=== PATIENT | female | born 1960 | race Caucasian/White ===

== ENCOUNTER 2023-06-29 07:52 | Inpatient (IN) | payer OTHER, SELFPAY ==
--- NOTE | ~2023-06-29 | MR_ITS ---
EXAMINATION: MR LUMBAR SPINE WITHOUT CONTRAST CLINICAL INFORMATION: Low back pain and incontinence. COMPARISON: CT scan of the abdomen and pelvis 03/30/2018. TECHNIQUE: MRI of the lumbar spine was obtained using routine sequences without contrast. FINDINGS: VERTEBRAL BODIES AND PARASPINAL STRUCTURES: There is nonspecific straightening of the lumbar lordosis. Intervertebral disc heights are maintained, but there is multilevel disc desiccation. The vertebral bodies have normal height and contour, and no fractures are demonstrated. There are minimal edematous signal changes in the left L3-L4 facets. Overall, marrow signal is homogenous. There is a small cyst in the anterior right kidney, which does not need further imaging evaluation. On the current study there is now severe left hydronephrosis with marked atrophy of the renal parenchyma which has evolved since the prior study. The proximal left ureter is dilated down to the level of the pelvic inlet. The visualized pelvic structures are unremarkable. CONUS MEDULLARIS AND CAUDA EQUINA: Normal, terminating at the level of T12-L1. The lower thoracic spinal cord appears normal. The cauda equina nerve roots and filum terminale appear normal. 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 SPINAL LEVELS: T12-L1: The facet joints appear normal bilaterally. Disc contour is normal. There is no central stenosis or foraminal narrowing. L1-L2: There is mild bilateral facet arthropathy. Disc contour is normal. There is no central stenosis or foraminal narrowing. L2-L3: There is mild bilateral facet arthropathy. Disc contour is normal. There is no central stenosis or foraminal narrowing. L3-L4: There is moderate bilateral facet arthropathy. There is a central and left-sided disc protrusion which flattens the ventral thecal sac and there is narrowing of the left subarticular recess with likely impingement traversing left L4 nerve root. There is moderate central stenosis. There is a left foraminal disc protrusion extending far laterally with impingement on the exiting and extraforaminal segments of the left L3 nerve root. L4-L5: There is mild to moderate bilateral facet arthropathy with ligamenta flava hypertrophy. There is a posterior disc protrusion which distorts the ventral thecal sac and there is mild narrowing of the bilateral subarticular recesses. There is mild central stenosis. There is a left foraminal disc protrusion impinging on the exiting left L4 nerve root. L5-S1: There is moderate to severe bilateral facet arthropathy with ligamenta flava hypertrophy and facet joint effusions. There is a left-sided disc protrusion/extrusion extending into the left subarticular recess with mild impingement on the traversing left S1 nerve root. The protrusion extends into the left neural foramen with impingement on the exiting left L5 nerve root; the smaller right foraminal disc protrusion is also noted. There is no central stenosis. MR/MR lumbar spine wo con IMPRESSION: 1. At L3-L4 there is facet arthropathy and there is a central and left-sided disc protrusion. There is narrowing of the left subarticular recess with impingement on the traversing left L4 nerve root. There is a left foraminal disc protrusion extending far laterally with impingement on the exiting and extraforaminal segments of the left L3 nerve root. There is moderate central stenosis. 2. At L4-L5 there is facet arthropathy and there is a posterior disc protrusion. There is narrowing of the bilateral subarticular recesses and there is mild central stenosis. There is a left foraminal disc protrusion impinging on the exiting left L4 nerve root. 3. At L5-S1 there is a left-sided disc protrusion/extrusion extending into the left subarticular recess with impingement on the traversing left S1 nerve root. There is also a left foraminal disc protrusion impinging on the exiting left L5 nerve root. There is no central stenosis. 4. On the current study there is now severe left hydronephrosis with marked atrophy of the renal parenchyma. The proximal left ureter is dilated down to the level of the pelvic inlet. This could be further evaluated clinically and with ultrasound, and consider isotope renal scan to assess renal function and level of obstruction.
--- NOTE | ~2023-06-29 | US_ITS ---
EXAMINATION: US RETROPERITONEAL LIMITED (RENAL ONLY) CLINICAL INFORMATION: Left-sided hydronephrosis seen on lumbar spine MRI. COMPARISON: Lumbar spine MRI 06/29/2023, CT abdomen pelvis 02/23/2018 TECHNIQUE: Renal ultrasound was performed FINDINGS: RIGHT KIDNEY: 11.4 x 5.5 x 6.2 cm (SAG x AP x TRV). The kidney is normal in size, contour, and echogenicity. Renal cortical thickness is normal. A benign 1.4 cm Bosniak class I renal cyst is noted which requires no additional imaging or follow up. No solid renal masses are seen. No calculi or focal parenchymal lesions. There is minimal fullness of the collecting system but no gross hydronephrosis. LEFT KIDNEY: 13.9 x 6.0 x 7.3 cm (SAG x AP x TRV). The kidney is normal in size, contour, and echogenicity. There is severe hydronephrosis present. There is dilatation of the ureter present and a possible stone seen measuring 7 mm in size in the distal left ureter. Renal cortical thickness is normal. No calculi or focal parenchymal lesions. US/US renal BI IMPRESSION: Severe left-sided hydronephrosis with possible 7 mm distal left ureteral stone. CT scan would be useful for further evaluation.
--- NOTE | ~2023-06-29 | CT_ITS ---
EXAMINATION: CT ANGIOGRAM HEAD CT ANGIOGRAM NECK CLINICAL INFORMATION: Reason for Exam Bilateral Medullary stroke; COMPARISON: Same day noncontrast MRI of the brain TECHNIQUE: Initial noncontrast animal trainer imaging of the head and neck was performed. Noncontrast head CT was also performed. Test bolus sequences followed by intravenous administration 70 mL of Omnipaque 350. Helical imaging was performed in the axial plane from the aortic arch to the skull vertex. Delayed postcontrast imaging of the head was also performed. The data was processed at the senior nuclear medicine technologist workstation for generation of MIP sequences. Angled MIPs and volume rendered reformatted images were also generated at an offline 3D workstation. Stenoses are assessed in accordance with NASCET criteria unless otherwise indicated. DLP: 2333.06 mGy-cm This CT examination was performed using dose optimization techniques as appropriate, variously including the following: *Automated exposure control. *Adjustment of mA and/or kV according to patient size (this includes techniques or standardized protocols for targeted exams where dose is matched to indication/reason for exam; i.e. extremities or head). *Use of iterative reconstruction technique. FINDINGS: CT Head: There is no evidence of acute intracranial hemorrhage or edematous territorial infarction. There is no abnormal attenuation within the brain parenchyma. The left ventral medullary infarct is visible as a hypodensity (series 17 image 11). No definite CT correlate for known right ventral medullary infarct. Tolbert-white matter differentiation is preserved. The ventricles are normal in size and configuration. No evidence for obstructive hydrocephalus. No abnormal mass effect or midline shift. No extra-axial fluid collections. No pathologic intra-axial enhancement or regional oligemia. No acute soft tissue or osseous abnormalities. The mastoid air cells and paranasal sinuses are clear. CT Neck: The thyroid gland and remaining cervical soft tissues are within normal limits. No significant abnormalities of the cervical spine. CT Upper Chest: The visualized lung apices and upper mediastinum are within normal limits. Neck CTA: Aortic Arch: Normal contour and caliber. Classic 3 vessel branching pattern of the aortic arch. Great Vessel Origins: Not well assessed due to streak artifact. Right Common Carotid Artery: No focal stenosis or occlusion. Cervical Right Internal Carotid Artery: Mild calcific atherosclerotic disease of the carotid bulb and proximal internal carotid artery without flow-limiting stenosis. Left Common Carotid Artery: No focal stenosis or occlusion. Cervical Left Internal Carotid Artery: Mild calcific atherosclerotic disease of the carotid bulb and proximal internal carotid artery without flow-limiting stenosis. Cervical Right Vertebral Artery: No focal stenosis or occlusion. Cervical Left Vertebral Artery: Dominant. No focal stenosis or occlusion. Brain CTA: Intracranial Internal Carotid Arteries: Calcific atherosclerotic disease of the intracranial internal carotid arteries without occlusion or flow-limiting stenosis. Right Anterior Cerebral Artery: Normal A1 segment. Normal opacification of the distal DHRUV segments. Left Anterior Cerebral Artery: Normal A1 segment. Normal opacification of the distal DHRUV segments. Anterior Communicating Artery: Normal. Right Middle Cerebral Artery: Normal M1 segment of the MCA without focal stenosis or occlusion. Normal arborization of the distal segments. Left Middle Cerebral Artery: Normal M1 segment of the MCA without focal stenosis or occlusion. Normal arborization of the distal segments. Right Vertebral Artery: The proximal intradural right vertebral artery is normal. There is irregularity and severe narrowing of the right vertebral artery distal to the right PICA takeoff with distal occlusion. Left Vertebral Artery: Normal V4 segment. Basilar Artery: Normal without focal stenosis or occlusion. Normal appearance of the proximal superior cerebellar arteries. Right Posterior Cerebral Artery: The P1 segment is diminutive. origin of the EDUCATION TRAINER with robust opacification of the posterior communicating artery. Normal opacification of the distal EDUCATION TRAINER segments. Left Posterior Cerebral Artery: Normal P1 segment. Normal opacification of the distal EDUCATION TRAINER segments. Normal opacification of the superior sagittal, straight, transverse, and sigmoid sinuses. CT/CT angio head neck IMPRESSION: 1. No acute intracranial abnormality including hemorrhage, mass effect, hydrocephalus, or acute territorial edematous infarction. 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 2. 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
--- NOTE | ~2023-06-29 | MR_ITS ---
EXAMINATION: MR BRAIN WITHOUT AND WITH CONTRAST CLINICAL INFORMATION: Lower extremity weakness COMPARISON: CT head without contrast 06/29/2023 TECHNIQUE: Multiplanar multisequence MR imaging of the brain was obtained without and following the administration of 10 mL Gadavist intravenous contrast. FINDINGS: There are acute infarcts involving the ventral upper right and mid left medulla. There is no intracranial hemorrhage on iron-sensitive imaging. No extra-axial collection or mass effect/herniation. Scattered periventricular and deep white matter T2 FLAIR hyperintensities consistent with mild underlying microangiopathy. No hydrocephalus. The ventricles are normal in morphology and size. No abnormal parenchymal or extra-axial enhancement. Abnormal appearance of the distal intradural right vertebral artery which may reflect a high-grade stenosis or occlusion. The midline structures are normal. The cerebellar tonsils are normally positioned. The craniocervical junction is normal. Marrow signal is within normal limits. The visualized soft tissues are without significant abnormality. No signal abnormality within the paranasal sinuses or within the mastoid air cells. MR/MR head/brain wo/w con IMPRESSION: 1. Acute infarcts involving the ventral upper right and mid left medulla. 2. Abnormal appearance of the distal intradural right vertebral artery which may reflect a high-grade stenosis or occlusion. This could be better assessed with CTA of the head and neck Above impression was communicated to Dr. Montaño on 07/01/2023 1:24 PM
--- NOTE | ~2023-06-29 | MR_ITS ---
EXAMINATION: MR CERVICAL SPINE WITHOUT AND WITH CONTRAST CLINICAL INFORMATION: Lower extremity weakness COMPARISON: None available. TECHNIQUE: MRI of the cervical spine was obtained using routine sequences without and with contrast. A total of 10 mL Gadavist was administered intravenously. FINDINGS: Suboptimal evaluation secondary to motion degradation. Straightening of the normal cervical lordosis. Trace anterolisthesis of C2-C3. Cervical vertebral body heights are maintained. No expansile or destructive osseous lesion. Within the constraint of motion degradation, no definite cord signal abnormality or abnormal intramedullary enhancement. C2-C3: No significant spinal canal or neural foraminal stenosis. C3-C4: Uncovertebral spurring and facet arthropathy. The spinal canal and neural foramen are not significantly narrowed. C4-C5: Mild facet degeneration. The spinal canal and neural foramen are patent. C5-C6: Disc osteophyte complex indents the ventral thecal sac with mild canal stenosis. Uncovertebral and facet arthropathy with mild right and moderate to severe left neural foraminal stenosis. C6-C7: Disc osteophyte complex with mild spinal canal stenosis. Uncovertebral and facet arthropathy with moderate to severe left neural foraminal stenosis. The right neural foramen is patent. C7-T1: No significant spinal canal or neural foraminal stenosis. Partially visualized T2 hyperintense foci in the brainstem which may be related to chronic microvascular ischemic change. MR/MR cervical spine wo/w con IMPRESSION: Within the constraint of motion degradation, no definite cord signal abnormality or abnormal intramedullary enhancement. No high-grade spinal canal stenosis. Moderate to severe left-sided neural foraminal stenosis at C5-C6 and C6-C7.
--- NOTE | ~2023-06-29 | CT_ITS ---
EXAMINATION: CT HEAD WITHOUT CONTRAST CLINICAL INFORMATION: Weakness and fall. COMPARISON: None available. TECHNIQUE: Contiguous axial imaging was performed from the skull base to vertex without intravenous administration of contrast. This CT examination was performed using dose optimization techniques as appropriate, variously including the following: *Automated exposure control *Adjustment of mA and/or kV according to patient size (this includes techniques or standardized protocols for targeted exams where dose is matched to indication/reason for exam; i.e. extremities or head) *Use of iterative reconstruction technique DLP: 614 mGy-cm FINDINGS: There is no evidence of acute intracranial hemorrhage or territorial infarction. No mass effect or midline shift is seen. Tolbert to white matter differentiation is preserved. No extra-axial fluid collections are identified. No hydrocephalus. The calvarium is intact. The mastoid air cells and visualized portions of the paranasal sinuses are well aerated. CT/CT head/brain wo IV con IMPRESSION: No acute intracranial pathology.
--- NOTE | ~2023-06-29 | CT_ITS ---
EXAMINATION: CT ABDOMEN AND PELVIS WITHOUT CONTRAST CLINICAL INFORMATION: Left-sided hydronephrosis. COMPARISON: CT abdomen and pelvis 03/30/2018. TECHNIQUE: Multidetector volumetric imaging was performed from the superior aspect of the liver through the pubic symphysis. Sagittal and coronal reformatted images were obtained on the technologist's workstation. This CT examination was performed using dose optimization techniques as appropriate, variously including the following: *Automated exposure control *Adjustment of mA and/or kV according to patient size (this includes techniques or standardized protocols for targeted exams where dose is matched to indication/reason for exam; i.e. extremities or head) *Use of iterative reconstruction technique DLP: 700. mGy-cm FINDINGS: LUNG BASES: The visualized lung bases are unremarkable. LIVER, GALLBLADDER, AND BILIARY TREE: The liver is normal in size, shape, and attenuation. No focal hepatic lesion or biliary ductal dilatation is present. There is a small 5 mm radiopaque gallstone without wall thickening. PANCREAS: Unremarkable. SPLEEN: Unremarkable. ADRENAL GLANDS: Unremarkable. KIDNEYS AND URETERS: The right kidney is normal size, shape and position. No radiopaque calculi or hydronephrosis seen. There is chronic left hydroureter nephrosis with hydroureteronephrosis extending to the mid segment likely from stricture. No radiopaque calculi seen in the left ureter The distal ureter is not dilated. BLADDER: The bladder is nondilated GASTROINTESTINAL TRACT: There is scattered stool and gas seen throughout the colon without distention. The small bowel loops are normal caliber. The appendix is dilated from Enlarged from trapped fluid measuring 19 Hounsfield units. This appendix measures approximately 12 to 13 cm in length, 2.6 x 2.8 cm at the base. Question trapped fluid versus mucocele. No radiopaque appendicolith seen at the base. It is a new finding since the last exam 03/30/2018. ABDOMINAL WALL: No significant hernia is appreciated. LYMPH NODES: Small shotty lymph nodes in the mesentery. No retroperitoneal abnormal size lymph nodes. VASCULAR: Unremarkable. PELVIC VISCERA: The uterus is atrophic or surgically absent. No adnexal mass or free fluid. OSSEOUS STRUCTURES: No aggressive lytic or sclerotic process. CT/CT abdomen pelvis wo IV con IMPRESSION: 1. Chronic left hydroureteronephrosis with dilated ureter extending to the mid segment likely from stricture. No radiopaque calculi seen. 2. The right kidney is normal. 3. Cholelithiasis without wall thickening. 4. There is fluid distended and elongated appendix question loculated fluid versus mucocele. Correlate with ultrasound and surgical consultation. Fleischner guidelines were followed.
[2023-06-29 08:03] VITALS: BP 186/111; BP 211/111; PULSE 70; PULSE 81; RESP 19; TEMP 37; O2SAT 95; O2SAT 96; BMI 36.8
--- NOTE | 2023-06-29 08:20 | ECG_ITS ---
Test Reason : weakness Blood Pressure : / mmHG Vent. Rate : 069 BPM Atrial Rate : 069 BPM P-R Int : 162 ms QRS Dur : 072 ms QT Int : 404 ms P-R-T Axes : 033 005 069 degrees QTc Int : 432 ms Normal sinus rhythm Normal ECG When compared with ECG of 23-FEB-2018 09:09, No significant change was found Referred By: Beka Pierce Electronically Signed By:Dmitry Crooks
--- NOTE | 2023-06-29 08:38 | ED_ITS ---
HPI - General Adult General Chief complaint: Weakness Stated complaint: WEAK,NEW ONSET INCONT PER EMS Time Seen by Provider: 06/29/23 08:09 Source: patient and family Mode of arrival: ambulatory Limitations: no limitations History of Present Illness HPI narrative: This is a 62-year-old female history of obesity, hyperlipidemia presenting to the emergency department with concerns that she has not been feeling right since Monday. Patient reports she feels like her legs are very heavy and weak, she is having issues with ambulation and supporting herself, she reports that the weakness seems to be going up her body and now she feels like her arms are also weak. Since Monday night patient has been having urinary incontinence patient has no history of this in the past. She reports she is having normal bowel habits without incontinence. She tells me she is having slight back discomfort but it may be secondary to her doing some heavy lifting at home as she is currently moving and lifting more often than usual. She denies saddle paresthesias, blunt trauma, fevers, chills, nausea, vomiting, headache, vision changes, chest pain and shortness of breath. No recent surgical procedures, immunizations or viral illnesses. Related Data Allergies Allergy/AdvReac Type Severity Reaction Status Date / Time Penicillins [PCN] Allergy Intermediate RASH Verified 06/29/23 10:46 feathers [FEATHERS] Allergy Mild CONGESTION Verified 06/29/23 10:46 acetaminophen [From PERCOCET] Allergy Unknown VOMITING Verified 06/29/23 10:46 amoxicillin Allergy Unknown Rash Verified 06/29/23 10:46 cephalexin [Keflex] Allergy Unknown Rash Verified 06/29/23 10:46 oxycodone [From PERCOCET] Allergy Unknown VOMITING Verified 06/29/23 10:46 penicillin G Allergy Unknown Rash Verified 06/29/23 10:46 PMF Social History Social History Smoked in Last 30 Days: No Use of substances other than those prescribed or required for medical reasons: No Advance Directives: No Advance Directives Information Provided: Yes Patient : No Physical Exam ED Vital Signs: Vital Signs - 24 hr 06/29/23 08:03 06/29/23 10:13 06/29/23 12:05 Temperature 98.6 F Pulse Rate 70 65 71 Respiratory Rate 19 18 16 Blood Pressure 186/111 H 179/94 H 175/88 H Pulse Oximetry 95 94 95 Oxygen Delivery Method Room Air Room Air Room Air 06/29/23 14:22 Temperature Pulse Rate 82 Respiratory Rate 16 Blood Pressure 159/103 H Pulse Oximetry 94 Oxygen Delivery Method Room Air BMI result Body Mass Index 36.8 vss Appearance: Alert.? Oriented X3.? No acute distress.? Head: Normocephalic, atraumatic, no step-offs or deformities Eyes: Pupils equal, round and reactive to light.? Neck: Normal inspection.? Neck supple.? CVS: Normal heart rate and rhythm.? Pulses normal.? Respiratory: No respiratory distress.? Breath sounds normal.? Abdomen: Soft and nontender.? Skin: Skin warm and dry.? Normal skin color.? Normal skin turgor.? Extremities: No lower extremity edema.? No calf ttp. patient unable to lift either of her lower extremities due to weakness not pain. Normal sensation distally. 3/5 strength to bilateral upper extremities. Normal LE reflexes. Back: No midline tenderness, no C-spine tenderness, full range of motion, no CVA tenderness bilaterally Neuro: Oriented X 3.? No motor deficit.? No sensory deficit. CN 2-12 intact Course Reevaluation(s) Reevaluation #1: CBC unremarkable. Chemistry no acute findings requiring intervention. Troponin negative. ESR and CRP normal. Head CT no acute intracranial pathology. Time: 10:15 Reevaluation #2: Lumbar MRI pending. Time: 10:15 Reevaluation #3: No significant signs of cord compression on MRI of lumbar spine. Patient was seen by Dr. Swain recommends 1 g of Solu-Medrol for the next 3 days. Also recommends MRI of cervical region. Would like patient admitted to the hospital. Time: 16:00 Additional Reevaluation(s): LP done no complications patient is lying supine for at least [address] Connolly assited and at the bedside. CSF samples sent down to the lab for analysis. Plan is hospital admission I assisted with the performance of the lumbar puncture. Medications Administered Discontinued Medications Generic Name Dose Route Start Last Admin Trade Name Freq PRN Reason Stop Dose Admin Ketorolac Tromethamine 30 mg 06/29/23 10:41 06/29/23 10:46 Ketorolac Tromethamine 30 Mg/Ml Vial IVPUSH 06/29/23 10:42 30 mg ONCE ONE Administration Lorazepam 1 mg 06/29/23 11:59 06/29/23 12:08 Lorazepam 2 Mg/Ml Vial IVPUSH 06/29/23 12:00 1 mg STAT STA Administration Medical Decision Making Medical Decision Making [facility] Narrative: 62-year-old female presents with ascending weakness and urinary incontinence that started on Monday. Very mild back pain. Physical exam patient unable to lift either of her lower extremities due to weakness not pain. Normal sensation distally. 3/5 strength to bilateral upper extremities. Normal LE reflexes. History and physical exam concerning for possible Guillain-[place] versus demyelinating process versus urinary tract infection versus lower cord compression. Unlikely cauda equina, epidural abscess. Will rule out metabolic derangements. Plan labs, urine, bladder scan, Frances catheter, CT head. Differential Diagnosis Differential Diagnoses: The differential diagnosis associated with the presentation includes History and physical exam concerning for possible Guillain-[place] versus demyelinating process versus urinary tract infection versus lower cord compression. Unlikely cauda equina, epidural abscess. Will rule out metabolic derangements. Admission/Observation Consideration of admission/observation: Escalation of care including admission/observation considered Likely Consult Healthcare Provider Management of the patient was discussed with: Agricultural Technician (Neurology) Lab Data [facility] Lab Attestation statement: I reviewed the patient's lab results. 06/29/23 08:49 06/29/23 08:49 Labs: Lab Results 06/29/23 Range/Units 08:49 WBC 7.9 (4.8-10.8) X10*3/uL RBC 5.57 H (4.20-5.50) X10*6/uL Hgb 15.0 (12.0-16.0) g/dl Hct 44.0 (37.0-47.0) % MCV 79.0 L (80.0-98.0) fL MCH 26.9 L (27.0-33.0) pg MCHC 34.1 (31.0-35.0) g/dl RDW 12.7 (11.0-16.0) % Plt Count 258 (160-400) X10*3/uL MPV 10.2 (9.4-12.3) fL Immature Gran % (Auto) 0.6 H (0.0-0.4) % Neut % (Auto) 66.1 (45-73) % Lymph % (Auto) 26.5 (20-40) % [place] % (Auto) 5.2 (2-11) % Eos % (Auto) 0.8 (0-4) % Baso % (Auto) 0.8 (0-2) % Lymph # (Auto) 2.1 (1.2-4.9) X10*3/uL [place] # (Auto) 0.4 (0.1-1.2) X10*3/uL Eos # (Auto) 0.1 (0.0-0.4) X10*3/uL Baso # (Auto) 0.1 (0.0-0.2) X10*3/uL Abs Immat Gran (auto) 0.05 H (0.00-0.03) X10*3/uL Absolute Neuts (auto) 5.2 (2.0-8.3) x10*3/uL Absolute Nucleated RBC 0.000 (0.0-0.012) X10*3/uL Nucleated RBC % (auto) 0.0 (0.0-0.2) /100WBC ESR 5 (0-20) MM/HR PT 11.9 (11.1-13.3) SEC INR 1.0 (0.9-1.1) Sodium 140 (135-145) mmol/L Potassium 3.7 (3.3-5.1) mmol/L Chloride 109 H (96-108) mmol/L Carbon Dioxide 21 L (22-29) mmol/L Anion Gap 14 (12-20) BUN 11 (9-16) mg/dL Creatinine 1.09 (0.5-1.4) mg/dL Estim Creat Clear Calc 57.6 Estimated GFR 51 Random Glucose 199 H (60-115) mg/dL Calcium 9.7 (8.4-10.2) mg/dL Magnesium 2.1 (1.6-2.6) mg/dL Total Bilirubin 0.7 (0.0-1.0) mg/dL AST 19 (5-31) U/L ALT 22 (0-31) U/L Alkaline Phosphatase 112 (39-117) U/L Troponin I High Sens < 2.7 (<3.5-17.0) ng/L C-Reactive Protein 0.40 (< or = 0.50) mg/dL Total Protein 7.4 (6.5-8.0) g/dL Albumin 4.4 (3.5-5.0) g/dL Independent Interpretation I performed an independent interpretation of an: CT Scan (CT/CT head/brain wo IV con IMPRESSION: No acute intracranial pathology.) Interpretation: Lumbar spine MRI MR/MR lumbar spine wo con IMPRESSION: 1. At L3-L4 there is facet arthropathy and there is a central and left-sided disc protrusion. There is narrowing of the left subarticular recess with impingement on the traversing left L4 nerve root. There is a left foraminal disc protrusion extending far laterally with impingement on the exiting and extraforaminal segments of the left L3 nerve root. There is moderate central stenosis. 2. At L4-L5 there is facet arthropathy and there is a posterior disc protrusion. There is narrowing of the bilateral subarticular recesses and there is mild central stenosis. There is a left foraminal disc protrusion impinging on the exiting left L4 nerve root. 3. At L5-S1 there is a left-sided disc protrusion/extrusion extending into the left subarticular recess with impingement on the traversing left S1 nerve root. There is also a left foraminal disc protrusion impinging on the exiting left L5 nerve root. There is no central stenosis. 4. On the current study there is now severe left hydronephrosis with marked atrophy of the renal parenchyma. The proximal left ureter is dilated down to the level of the pelvic inlet. This could be further evaluated clinically and with ultrasound, and consider isotope renal scan to assess renal function and level of obstruction. Radiology Impression Discussion of test interpretation with radiology: I have reviewed the radiologist's reading. Independent Historian Clinical information obtained from an independent historian. History obtained from or confirmed by: Other (Daughter) Chronic Conditions Patient?s care impacted by: Other (Obesity, hyperlipidemia) Critical Care Time Critical Care Time Critical Care Time: Yes Total Critical Care Time: 120 Attestation: I attest to this time spent taking care of the patient, obtaining history, physical, reviewing labs, imaging, speaking to my attending, speaking to specialist. Discharge Plan Discharge Clinical Impression: Myelopathy, Leg weakness Patient Disposition: Admitted As Inpatient
[2023-06-29 08:55] LABS: MANUAL DIFF FLAG NO
[2023-06-29 09:06] LABS: Basophils Absolute Auto 0.1 X10*3/uL (0.0-0.2); Basophils Percent Auto 0.8 % (0-2); Eosinophils Absolute Auto 0.1 X10*3/uL (0.0-0.4); Eosinophils Percent Auto 0.8 % (0-4); Imm Gran Abs Auto 0.05 X10*3/uL (0.00-0.03); Imm Gran Pct Auto 0.6 % (0.0-0.4); Lymphocytes Absolute Auto 2.1 X10*3/uL (1.2-4.9); Lymphocytes Percent Auto 26.5 % (20-40); Mean Corpuscular HGB Conc 34.1 g/dl (31.0-35.0); Mean Corpuscular Hemoglobin 26.9 pg (27.0-33.0); Mean Platelet Volume 10.2 fL (9.4-12.3); Monocytes Absolute Auto 0.4 X10*3/uL (0.1-1.2); Monocytes Percent Auto 5.2 % (2-11); Neutrophils Absolute Auto 5.2 x10*3/uL (2.0-8.3); Neutrophils Percent Auto 66.1 % (45-73); Platelet Count 258 X10*3/uL (160-400); Red Blood Count 5.57 X10*6/uL (4.20-5.50); Red Cell Distribution Width 12.7 % (11.0-16.0); White Blood Count 7.9 X10*3/uL (4.8-10.8)
[2023-06-29 09:10] LABS: Prothrombin Time 11.9 SEC (11.1-13.3)
--- NOTE | 2023-06-29 09:13 | PC.NURSE ---
MRI screening form completed. pt aware of need for U/a - family at bedside. all aware of plan of care
[2023-06-29 09:20] LABS: Alanine Aminotransferase 22 U/L (0-31); Albumin Level 4.4 g/dL (3.5-5.0); Alkaline Phosphatase 112 U/L (39-117); Anion Gap 14 (12-20); Aspartate Amino Transferase 19 U/L (5-31); Bilirubin Total 0.7 mg/dL (0.0-1.0); Blood Urea Nitrogen 11 mg/dL (9-16); Calcium 9.7 mg/dL (8.4-10.2); Carbon Dioxide 21 mmol/L (22-29); Chloride 109 mmol/L (96-108); Creatinine Clr Calc Pharmacy 57.6; Estimated Glomerular Filt Rate 51; Glucose Random 199 mg/dL (60-115); Magnesium 2.1 mg/dL (1.6-2.6); Potassium 3.7 mmol/L (3.3-5.1); Sodium 140 mmol/L (135-145); Total Protein 7.4 g/dL (6.5-8.0)
[2023-06-29 09:34] LABS: Troponin-I High Sensitivity < 2.7 ng/L (<3.5-17.0)
[2023-06-29 09:54] LABS: Erythrocyte Sedimentation Rate 5 MM/HR (0-20)
[2023-06-29 10:13] VITALS: BP 179/94; PULSE 65; RESP 18; O2SAT 94
[2023-06-29] MEDS: Ketorolac Tromethamine 30 MG/ML VIAL IVPUSH (10:46)
[2023-06-29 12:05] VITALS: BP 175/88; PULSE 71; RESP 16; O2SAT 95
[2023-06-29] MEDS: LORazepam 2 MG/ML VIAL 1 MG IVPUSH (12:08)
--- NOTE | 2023-06-29 12:21 | PC.NURSE ---
pt off unit to MRI
--- NOTE | 2023-06-29 13:17 | PC.NURSE ---
pt back from MRI, resting comfortable with lights off at this time, pt with no complaints
[2023-06-29 14:22] VITALS: BP 159/103; PULSE 82; RESP 16; O2SAT 94
--- NOTE | 2023-06-29 15:11 | P.CNNE_ITS ---
History of Present Illness Data of Consult Service Date: 06/29/23 Primary Care Provider: None Physician HPI Reason for consult: leg weakness This is a 62-year-old obese female generally healthy womanwith history of hyperlipidemiaOn no medications presented to the emergency department with not feeling right for last 48 hrs. She feels like her legs are very heavy and weak, and she is having issues with ambulation and supporting herself. She reports that the weakness seems to be going up her body and now she feels like her arms are also weak. She has also been having urinary incontinence that is new. She reports she is having normal bowel habits without incontinence. She is having slight back discomfort but it may be secondary to her doing some heavy lifting at home as she is currently moving and lifting more often than usual. She denies saddle paresthesias, blunt trauma, fevers, chills, nausea, vomiting, headache, vision changes. No recent immunizations or viral illnesses. PMFSH Social History Social History Smoked in Last 30 Days: No Use of substances other than those prescribed or required for medical reasons: No Advance Directives: No Advance Directives Information Provided: Yes Patient : No Meds Allergies Allergy/AdvReac Type Severity Reaction Status Date / Time Penicillins [PCN] Allergy Intermediate RASH Verified 06/29/23 10:46 feathers [FEATHERS] Allergy Mild CONGESTION Verified 06/29/23 10:46 acetaminophen [From PERCOCET] Allergy Unknown VOMITING Verified 06/29/23 10:46 amoxicillin Allergy Unknown Rash Verified 06/29/23 10:46 cephalexin [Keflex] Allergy Unknown Rash Verified 06/29/23 10:46 oxycodone [From PERCOCET] Allergy Unknown VOMITING Verified 06/29/23 10:46 penicillin G Allergy Unknown Rash Verified 06/29/23 10:46 Physical Exam 2 Vital Signs: Vital Signs: Last Vital Signs Temp 98.6 F 06/29/23 08:03 Pulse 82 06/29/23 14:22 Resp 16 06/29/23 14:22 BP 159/103 H 06/29/23 14:22 Pulse Ox 94 06/29/23 14:22 O2 Del Method Room Air 06/29/23 14:22 BMI result Body Mass Index 36.8 Neuro: Other: She's alert and oriented with normal intellectual functions. Cranial nerves II through: Normal. There may be a hint of eye closure weakness on the right. Tongue protrudes in the midline. She has minimal weakness of neck flexion. She has mild weakness in the upper extremities. In the triceps and deltoids at 5 minus/5. Slight weakness in the right cook helper dessert. Lower extremity proximal strength is 3/5 distal strength is 4+/5. Reflexes are 2-3+3+ knees, 2+ ankles and plantar responses are equivocal extensor. There are no sensory deficits. Gait was not tested. Results Labs 06/29/23 08:49 06/29/23 08:49 Labs: Short CBC 06/29/23 Range/Units 08:49 WBC 7.9 (4.8-10.8) X10*3/uL Hgb 15.0 (12.0-16.0) g/dl Hct 44.0 (37.0-47.0) % Plt Count 258 (160-400) X10*3/uL BMP 06/29/23 08:49 Sodium 140 Potassium 3.7 Chloride 109 H Carbon Dioxide 21 L BUN 11 Creatinine 1.09 Calcium 9.7 Liver Function 06/29/23 Range/Units 08:49 Total Bilirubin 0.7 (0.0-1.0) mg/dL AST 19 (5-31) U/L ALT 22 (0-31) U/L Alkaline Phosphatase 112 (39-117) U/L Albumin 4.4 (3.5-5.0) g/dL Assessment and Plan (1) Myelopathy: Status: Acute She has slowly progressive weakness over the last 48 hours with loss of bladder control hyperreflexia and equivocal extensor plantar responses, suggesting of a form of myelitis or myelopathy. The other possibility would be a more peripheral etiology leg Guillain-[place]? syndrome. However, in the presence of for brisk reflexes and upgoing plantar responses and no sensory complaints of pain or numbness that seems less likely. Her MRI of the lumbosacral spine is unremarkable. Brain CT is negative. I have reviewed the films personally. Recommendations: MRI of the cervical spine. Spinal fluid analysis, including MS studies. IV Solu-Medrol 1 g daily for 3 days (2) Leg weakness: Status: Acute Procedures Date of Service Date of Service: 06/29/23
--- NOTE | 2023-06-29 16:56 | PHA.MEDREC ---
Pharmacy Consult ? Medication Reconciliation Pharmacy has completed the medication reconciliation. Patient reports only a OTC medications. Jillian Antunez, RandeeD
[2023-06-29] MEDS: Ibuprofen 600 MG TABLET PO (17:18)
[2023-06-29] MEDS: methylPREDNISolone Sod Succ 1,000 MG in 0.9 % Sodium Chloride 50 ML 66 MG IV (17:18)
[2023-06-29 17:23] LABS: CSF Appearance Clear, Colorless; CSF Tube # 2
[2023-06-29 17:33] LABS: Appearance CSF CLEAR; CSF Tube # 1; CSF Volume 0.5 ML; Color CSF COLORLESS
[2023-06-29 17:34] LABS: Appearance CSF CLEAR; CSF Tube # 4; CSF Volume 0.5 ML; Color CSF COLORLESS; Red Blood Cell CSF 0 MM*3; Red Blood Cell CSF 105 MM*3
[2023-06-29 17:55] LABS: CSF Monos 9 %; Lymphocytes CSF 91 %
[2023-06-29 17:57] LABS: CSF Monos 10 %; Lymphocytes CSF 90 %
--- NOTE | 2023-06-29 17:57 | PM.IMHP ---
History of Present Illness Date of Service: 06/29/23 Chief Complaint: Lower extremities weakness A 62 years old lady with no significant PMH who presents to the hospital complaining of lower extremities weakness for last 2 days. The patient reports some heavy lefting recently which she was able to manage but for the last 2 days she noticed worsening weakness in her legs, difficulties standing up and walking, feels unsteady. she also felt her arms are getting weaker. she lost control of her bladder but have normal bowel habit. reporting also mild headache today. No chest pain, palpitations, loss sensation, vision changes, SOB, nausea, vomiting, diarrhea or urinary symptoms. In ED she was evaluated by MR spine and CSF analysis along with neurologist evaluation who recommended starting pulse steroids for 3 days. Admitted for treatment and further work up. Review of Systems Review of Systems: No fever, chills but has lower extremities weakness No chest pain, palpitation No shortness of breath or coughing No abdominal pain, nausea or vomiting No urinary symptoms No any rash or wounds PMFSH Medical History Obesity (BMI 30-39.9) Social History Smoked in Last 30 Days: No Use of substances other than those prescribed or required for medical reasons: No Advance Directives: No Advance Directives Information Provided: Yes Patient : No Meds Allergies Allergy/AdvReac Type Severity Reaction Status Date / Time Penicillins [PCN] Allergy Intermediate RASH Verified 06/29/23 10:46 feathers [FEATHERS] Allergy Mild CONGESTION Verified 06/29/23 10:46 acetaminophen [From PERCOCET] Allergy Unknown VOMITING Verified 06/29/23 10:46 amoxicillin Allergy Unknown Rash Verified 06/29/23 10:46 cephalexin [Keflex] Allergy Unknown Rash Verified 06/29/23 10:46 oxycodone [From PERCOCET] Allergy Unknown VOMITING Verified 06/29/23 10:46 penicillin G Allergy Unknown Rash Verified 06/29/23 10:46 Active Medications: Current Medications Enoxaparin Sodium (Enoxaparin Sodium 40 Mg/0.4 Ml Syringe) 40 mg SUBCUT Q24H MARIELLE Methylprednisolone Sodium Succinate 1,000 mg/ Sodium Chloride 66 mls @ 66 mls/hr IV ONCE ONE Stop: 06/29/23 18:14 Last Admin: 06/29/23 17:18 Dose: 66 mls/hr Methylprednisolone Sodium Succinate 1,000 mg/ Sodium Chloride 66 mls @ 66 mls/hr IV DAILY [facility] Stop: 07/01/23 09:59 Ibuprofen (Ibuprofen 400 Mg Tablet) 400 mg PO Q6H PRN PRN Reason: Fever or Pain, Mild (Pain Scale 1-3) Ondansetron HCl (Ondansetron Hcl 4 Mg/2 Ml Vial) 4 mg IVPUSH Q8H PRN PRN Reason: Nausea and Vomiting Sodium Chloride (0.9 % Sodium Chloride Flush 3 Ml Syringe) 3 ml IVFLUSH QSHIFT [facility] Home Medications Medication Instructions Recorded Confirmed Last Taken Type glucosam 750 mg-chondroi 100 1 tab PO DAILY 06/29/23 06/29/23 Unknown History mg-hyalur 1.65 mg-CF borate 108 mg tablet (Move Free IAT-Auto) Physical Exam Vital Signs and Narrative: Vital Signs: Last Vital Signs Temp 98.6 F 06/29/23 08:03 Pulse 82 06/29/23 14:22 Resp 16 06/29/23 14:22 BP 159/103 H 06/29/23 14:22 Pulse Ox 94 06/29/23 14:22 O2 Del Method Room Air 06/29/23 14:22 BMI result Body Mass Index 36.8 Const: Other: Constitutional : Awake, interactive, not in distress Neck : Normal inspection, Supple Cardiovascular : RRR, no JVP, no lower extremity edema Respiratory : good bilateral air entry, no crackles, wheezes or rhonchi Gastrointestinal: soft, lax, Normal bowel sounds, Non tender Skin : Warm, Dry Neurological : Alert & oriented x3, normal speech, CN 2-12 within normal, mild weakness upper extremities, Lower ex weakness 3/5 bilaterally. Brisk DTR Results Labs 06/29/23 08:49 06/29/23 08:49 Labs: Laboratory Results - last 24 hr 06/29/23 06/29/23 06/29/23 08:49 16:31 16:31 MCV 79.0 L MCH 26.9 L MCHC 34.1 RDW 12.7 Plt Count 258 MPV 10.2 Immature Gran % (Auto) 0.6 H Neut % (Auto) 66.1 Lymph % (Auto) 26.5 [place] % (Auto) 5.2 Eos % (Auto) 0.8 Baso % (Auto) 0.8 Lymph # (Auto) 2.1 [place] # (Auto) 0.4 Eos # (Auto) 0.1 Baso # (Auto) 0.1 Abs Immat Gran (auto) 0.05 H Absolute Neuts (auto) 5.2 Absolute Nucleated RBC 0.000 Nucleated RBC % (auto) 0.0 ESR 5 PT 11.9 INR 1.0 Anion Gap 14 Estim Creat Clear Calc 57.6 Estimated GFR 51 Random Glucose 199 H Calcium 9.7 Magnesium 2.1 Total Bilirubin 0.7 AST 19 ALT 22 Alkaline Phosphatase 112 Troponin I High Sens < 2.7 C-Reactive Protein 0.40 Total Protein 7.4 Albumin 4.4 Hold Yellow Top See Note CSF Tube Number 2 Cancelled CSF Volume Cancelled CSF Appearance Cancelled CSF Color Cancelled CSF WBC Cancelled CSF RBC Cancelled CSF Neutrophils Cancelled CSF Lymphocytes Cancelled CSF Monocytes % Cancelled CSF Other Cells % Cancelled CSF Appearance (b) Clear, Colorless CSF Total Protein 79.0 H Imaging Radiologist's Impressions: Impressions Head CT 06/29/23 09:23 IMPRESSION: No acute intracranial pathology. Lumbar Spine MRI 06/29/23 12:54 IMPRESSION: 1. At L3-L4 there is facet arthropathy and there is a central and left-sided disc protrusion. There is narrowing of the left subarticular recess with impingement on the traversing left L4 nerve root. There is a left foraminal disc protrusion extending far laterally with impingement on the exiting and extraforaminal segments of the left L3 nerve root. There is moderate central stenosis. 2. At L4-L5 there is facet arthropathy and there is a posterior disc protrusion. There is narrowing of the bilateral subarticular recesses and there is mild central stenosis. There is a left foraminal disc protrusion impinging on the exiting left L4 nerve root. 3. At L5-S1 there is a left-sided disc protrusion/extrusion extending into the left subarticular recess with impingement on the traversing left S1 nerve root. There is also a left foraminal disc protrusion impinging on the exiting left L5 nerve root. There is no central stenosis. 4. On the current study there is now severe left hydronephrosis with marked atrophy of the renal parenchyma. The proximal left ureter is dilated down to the level of the pelvic inlet. This could be further evaluated clinically and with ultrasound, and consider isotope renal scan to assess renal function and level of obstruction. Assessment and Plan (1) Leg weakness: Status: Acute (2) Myelopathy: Status: Acute (3) Hydronephrosis: Status: Acute Plan A 62 years old lady with no significant PMH who presents to the hospital complaining of lower extremities weakness for last 2 days. Lower extremities weakness DDx: MS ? atypical GBS ? spinal cord problem? MR Lumbar spine: no acute findings but multiple arthropathy and disc problems Head CT no acute findings Pending MRI Cervical spine CSF Analysis and culture Neurology input appreciated, 3 days of 1 gm Solumedrol PT\OT Neurochecks Q4 Left sided hydronephrosis noted on MRI to check US get urology evaluation DVT PPx Lovenox The patient will need at least 2 overnight hospital stay Quality Stroke Does the patient have a stroke diagnosis?: No VTE Prior VTE?: No VTE Risk Level:: Medical - moderate - high VTE Device Contraindication: Treatment Not Indicated VTE Drug Contraindication: N/A - Med Ordered
[2023-06-29 18:00] LABS: White Blood Cell CSF 16 MM*3; White Blood Cell CSF 27 MM*3
[2023-06-29] MEDS: Enoxaparin Sodium 40 MG/0.4 ML SYRINGE SUBCUT (18:24)
[2023-06-29 19:42] LABS: Oligoclonal Serum Yes
[2023-06-29 22:45] VITALS: BP 171/101; PULSE 74; RESP 16; TEMP 36.4; O2SAT 92
[2023-06-30] MEDS: 0.9 % Sodium Chloride Flush 3 ML SYRINGE IVFLUSH ×3 (00:25→19:19)
[2023-06-30] MEDS: Ibuprofen 400 MG TABLET PO ×2 (02:11→10:22)
[2023-06-30 05:49] LABS: MANUAL DIFF FLAG NO
[2023-06-30 05:54] LABS: Basophils Percent Auto 0.1 % (0-2); Hematocrit 45.4 % (37.0-47.0); Hemoglobin 15.5 g/dl (12.0-16.0); Imm Gran Abs Auto 0.06 X10*3/uL (0.00-0.03); Imm Gran Pct Auto 0.7 % (0.0-0.4); Lymphocytes Absolute Auto 1.3 X10*3/uL (1.2-4.9); Lymphocytes Percent Auto 14.1 % (20-40); Mean Corpuscular HGB Conc 34.1 g/dl (31.0-35.0); Mean Corpuscular Hemoglobin 26.8 pg (27.0-33.0); Mean Corpuscular Volume 78.5 fL (80.0-98.0); Mean Platelet Volume 10.1 fL (9.4-12.3); Monocytes Percent Auto 0.3 % (2-11); Neutrophils Absolute Auto 7.8 x10*3/uL (2.0-8.3); Neutrophils Percent Auto 84.8 % (45-73); Platelet Count 246 X10*3/uL (160-400); Red Blood Count 5.78 X10*6/uL (4.20-5.50); Red Cell Distribution Width 12.6 % (11.0-16.0); White Blood Count 9.2 X10*3/uL (4.8-10.8)
--- NOTE | 2023-06-30 06:13 | PC.NURSE ---
PT slept well through the night only woke for medication for a headache. Offering no complaints this morning. Resting quietly. Call lew placed within reach.
[2023-06-30 06:22] LABS: Anion Gap 19 (12-20); Blood Urea Nitrogen 19 mg/dL (9-16); Calcium 9.9 mg/dL (8.4-10.2); Carbon Dioxide 19 mmol/L (22-29); Chloride 105 mmol/L (96-108); Creatinine Clr Calc Pharmacy 55.6; Estimated Glomerular Filt Rate 49; Glucose Random 323 mg/dL (60-115); Potassium 3.7 mmol/L (3.3-5.1); Sodium 139 mmol/L (135-145)
[2023-06-30 06:28] VITALS: BP 159/86; PULSE 86; RESP 16; TEMP 36.9; O2SAT 92
[2023-06-30 06:34] LABS: Appearance Urine Clear; Color Urine Yellow; Glucose Urine UA >=1000 mg/dL (Negative); Leukocyte Esterase Urine Negative (Negative); Nitrite Urine Negative (Negative); PH 5.5 (5.0-9.0); Specific Gravity - Urine >= 1.030 (1.005-1.025); UMIC TRIGGER UACC YES; Urine Blood Negative (Negative); Urine Ketones 40 mg/dL (Negative); Urine Protein Negative (Neg-Trace)
[2023-06-30 06:39] LABS: Bacteria Urine 1+ (None Seen); Hyaline Casts Urine 0-2 /LPF (0-2); RBC Urine 0-2 /HPF (0-2); Squamous Epithelial Cell Urine 0-2 /HPF (0-2); WBC Urine 0-5 /HPF (0-5)
[2023-06-30 07:57] VITALS: BP 159/86; PULSE 86; O2SAT 92
[2023-06-30] MEDS: methylPREDNISolone Sod Succ 1,000 MG in 0.9 % Sodium Chloride 50 ML 66 MG IV (08:25)
--- NOTE | 2023-06-30 08:30 | PM.UROCN ---
History of Present Illness Consult details Consult date: 06/30/23 Requesting physician: Akin Montaño Narrative: Geovanna is a 62 year old female presents to the hospital complaining of lower extremities weakness for last 2 days. The patient reports some heavy lefting recently which she was able to manage but for the last 2 days she noticed worsening weakness in her legs, difficulties standing up and walking, feels unsteady. she also felt her arms are getting weaker. She complains of complete urinary incontinence, denies dysuria. She states she has been followed by [facility] in the past for kidney stones, denies renal colic. No chest pain, palpitations, loss sensation, vision changes, SOB, nausea, vomiting, diarrhea. In ED she was evaluated by MR spine and CSF analysis along with neurologist evaluation. Admitted for treatment and further work up. Urology consult for left hydronephrosis and possible distal ureteral stone noted on renal ultrasound. Review of Systems Review of Systems: 10 point ROS negative other than stated in [facility] Past Medical History Medical History Obesity (BMI 30-39.9) Social History Social History Patient Tobacco Use Status: Never used Tobacco Smoked in Last 30 Days: No Use of substances other than those prescribed or required for medical reasons: No Advance Directives: No Advance Directives Information Provided: Yes Nutrition Risks: No Nutritional Risk Patient : No Meds Allergies Allergy/AdvReac Type Severity Reaction Status Date / Time Penicillins [PCN] Allergy Intermediate RASH Verified 06/29/23 10:46 feathers [FEATHERS] Allergy Mild CONGESTION Verified 06/29/23 10:46 acetaminophen [From PERCOCET] Allergy Unknown VOMITING Verified 06/29/23 10:46 amoxicillin Allergy Unknown Rash Verified 06/29/23 10:46 cephalexin [Keflex] Allergy Unknown Rash Verified 06/29/23 10:46 oxycodone [From PERCOCET] Allergy Unknown VOMITING Verified 06/29/23 10:46 penicillin G Allergy Unknown Rash Verified 06/29/23 10:46 Active Medications: Current Medications Enoxaparin Sodium (Enoxaparin Sodium 40 Mg/0.4 Ml Syringe) 40 mg SUBCUT Q24H [facility] Last Admin: 06/29/23 18:24 Dose: 40 mg Methylprednisolone Sodium Succinate 1,000 mg/ Sodium Chloride 66 mls @ 66 mls/hr IV DAILY ON LICENSE OF [facility] Stop: 07/01/23 09:59 Last Admin: 06/30/23 08:25 Dose: 66 mls/hr Ibuprofen (Ibuprofen 400 Mg Tablet) 400 mg PO Q6H PRN PRN Reason: Fever or Pain, Mild (Pain Scale 1-3) Last Admin: 06/30/23 02:11 Dose: 400 mg Ondansetron HCl (Ondansetron Hcl 4 Mg/2 Ml Vial) 4 mg IVPUSH Q8H PRN PRN Reason: Nausea and Vomiting Sodium Chloride (0.9 % Sodium Chloride Flush 3 Ml Syringe) 3 ml IVFLUSH QSHIFT ON LICENSE OF [facility] Last Admin: 06/30/23 08:21 Dose: Not Given Home Medications Medication Instructions Recorded Confirmed Last Taken Type glucosam 750 mg-chondroi 100 1 tab PO DAILY 06/29/23 06/29/23 Unknown History mg-hyalur 1.65 mg-CF borate 108 mg tablet (Move [place]) Physical Exam Vital Signs: Vital Signs: Last Vital Signs Temp 98.5 F 06/30/23 06:28 Pulse 86 06/30/23 07:57 Resp 16 06/30/23 06:28 BP 159/86 H 06/30/23 07:57 Pulse Ox 92 06/30/23 07:57 O2 Del Method Room Air 06/30/23 06:28 BMI result Body Mass Index 36.8 Const: General: cooperative, healthy appearing and no acute distress Orientation/consciousness: patient oriented x3 HEENT: Head: Yes normal to inspection, Yes normocephalic and Yes atraumatic Eyes: Conjunctivae: conjunctivae normal Neck: Neck: Yes normal visual inspection and Yes trachea midline Chest: Chest palpation & inspection: normal inspection of the chest Resp: Effort & Inspection: normal respiratory effort Cardio: Rate: regular rate GI: Inspection: Yes normal to inspection Palpation (GI): Soft to palpation : General: No no CVA tenderness Back/Spine/Pelvis: Back: No no CVA tenderness Neuro: General: patient oriented x3 Extrem: General: No edema Psych: Appearance: grossly normal Results Labs 06/30/23 05:02 06/30/23 05:02 Labs: Abnormal lab results 06/29/23 06/29/23 06/29/23 Range/Units 08:49 16:31 16:31 RBC 5.57 H (4.20-5.50) X10*6/uL MCV 79.0 L (80.0-98.0) fL MCH 26.9 L (27.0-33.0) pg Immature Gran % (Auto) 0.6 H (0.0-0.4) % Neut % (Auto) (45-73) % Lymph % (Auto) (20-40) % Phillips % (Auto) (2-11) % Phillips # (Auto) (0.1-1.2) X10*3/uL Abs Immat Gran (auto) 0.05 H (0.00-0.03) X10*3/uL Chloride 109 H (96-108) mmol/L Carbon Dioxide 21 L (22-29) mmol/L BUN (9-16) mg/dL Random Glucose 199 H (60-115) mg/dL Ur Specific [place] (1.005-1.025) Urine Glucose (UA) (Negative) mg/dL CSF WBC 27 H* 16 H* MM*3 CSF Total Protein 79.0 H (15-45) mg/dL 06/30/23 06/30/23 Range/Units 05:02 06:04 RBC 5.78 H (4.20-5.50) X10*6/uL MCV 78.5 L (80.0-98.0) fL MCH 26.8 L (27.0-33.0) pg Immature Gran % (Auto) 0.7 H (0.0-0.4) % Neut % (Auto) 84.8 H (45-73) % Lymph % (Auto) 14.1 L (20-40) % Phillips % (Auto) 0.3 L (2-11) % Phillips # (Auto) 0.0 L (0.1-1.2) X10*3/uL Abs Immat Gran (auto) 0.06 H (0.00-0.03) X10*3/uL Chloride (96-108) mmol/L Carbon Dioxide 19 L (22-29) mmol/L BUN 19 H (9-16) mg/dL Random Glucose 323 H (60-115) mg/dL Ur Specific [place] >= 1.030 H (1.005-1.025) Urine Glucose (UA) >=1000 H (Negative) mg/dL CSF WBC MM*3 CSF Total Protein (15-45) mg/dL Short CBC 06/29/23 06/30/23 Range/Units 08:49 05:02 WBC 7.9 9.2 (4.8-10.8) X10*3/uL Hgb 15.0 15.5 (12.0-16.0) g/dl Hct 44.0 45.4 (37.0-47.0) % Plt Count 258 246 (160-400) X10*3/uL BMP 06/29/23 06/30/23 08:49 05:02 Sodium 140 139 Potassium 3.7 3.7 Chloride 109 H 105 Carbon Dioxide 21 L 19 L BUN 11 19 H Creatinine 1.09 1.13 Calcium 9.7 9.9 Liver Function 06/29/23 Range/Units 08:49 Total Bilirubin 0.7 (0.0-1.0) mg/dL AST 19 (5-31) U/L ALT 22 (0-31) U/L Alkaline Phosphatase 112 (39-117) U/L Albumin 4.4 (3.5-5.0) g/dL Urine 06/30/23 Range/Units 06:04 Urine Color Yellow Urine Appearance Clear Urine pH 5.5 (5.0-9.0) Ur Specific [place] >= 1.030 H (1.005-1.025) Urine Protein Negative (Neg-Trace) mg/dL Urine Glucose (UA) >=1000 H (Negative) mg/dL Imaging US - kidney/bladder: report reviewed and image reviewed Additional studies: Date of Service: 06/29/23 EXAMINATION: US RETROPERITONEAL LIMITED (RENAL ONLY) CLINICAL INFORMATION: Left-sided hydronephrosis seen on lumbar spine MRI. COMPARISON: Lumbar spine MRI 06/29/2023, CT abdomen pelvis 02/23/2018 TECHNIQUE: Renal ultrasound was performed FINDINGS: RIGHT KIDNEY: 11.4 x 5.5 x 6.2 cm (SAG x AP x TRV). The kidney is normal in size, contour, and echogenicity. Renal cortical thickness is normal. A benign 1.4 cm Bosniak class I renal cyst is noted which requires no additional imaging or follow up. No solid renal masses are seen. No calculi or focal parenchymal lesions. There is minimal fullness of the collecting system but no gross hydronephrosis. LEFT KIDNEY: 13.9 x 6.0 x 7.3 cm (SAG x AP x TRV). The kidney is normal in size, contour, and echogenicity. There is severe hydronephrosis present. There is dilatation of the ureter present and a possible stone seen measuring 7 mm in size in the distal left ureter. Renal cortical thickness is normal. No calculi or focal parenchymal lesions. IMPRESSION: Severe left-sided hydronephrosis with possible 7 mm distal left ureteral stone. CT scan would be useful for further evaluation. Assessment and Plan (1) Leg weakness: Status: Acute (2) Myelopathy: Status: Acute (3) Hydronephrosis: Status: Acute (4) Urinary incontinence: Status: Acute Plan Left hydro, Clinically denies flank pain. Recommend CT Abd/pelvis wo IV contrast Urinary incontinence, likely related to neurological sequelae No surgical intervention at this time, will follow Procedures Date of Service Date of Service: 06/30/23
[2023-06-30 10:08] VITALS: BP 170/102; PULSE 98; RESP 20; TEMP 36.6; O2SAT 94
--- NOTE | 2023-06-30 10:32 | P.PNIM_ITS ---
Subjective Subjective Date of Service: 06/30/23 Interval History: Seen and evaluated this morning feels weaker overall, mainly in upper extremities today her sound is more muffled Anxious and worried Review of Systems Review of Systems: Yes all other systems are reviewed and are negative Physical Exam 2 Vital Signs: Vital Signs: Last Vital Signs Temp 98 F 06/30/23 10:08 Pulse 98 06/30/23 10:08 Resp 20 06/30/23 10:08 BP 170/102 H 06/30/23 10:08 Pulse Ox 94 06/30/23 10:08 O2 Del Method Room Air 06/30/23 10:08 BMI result Body Mass Index 36.8 Const: Other: Constitutional : Awake, interactive, not in distress Neck : Normal inspection, Supple Cardiovascular : RRR, no JVP, no lower extremity edema Respiratory : good bilateral air entry, no crackles, wheezes or rhonchi Gastrointestinal: soft, lax, Normal bowel sounds, Non tender Skin : Warm, Dry Neurological : Alert & oriented x3, normal speech, CN 2-12 within normal, mild weakness upper extremities, Lower ex weakness 3/5 bilaterally. Brisk DTR Objective Data Active Medications Enoxaparin Sodium (Enoxaparin Sodium 40 Mg/0.4 Ml Syringe) 40 mg SUBCUT Q24H [facility] Last Admin: 06/29/23 18:24 Dose: 40 mg Documented By: FROY Methylprednisolone Sodium Succinate 1,000 mg/ Sodium Chloride 66 mls @ 66 mls/hr IV DAILY [facility] Stop: 07/01/23 09:59 Last Infusion: 06/30/23 09:51 Dose: Infused Documented By: JIM Ibuprofen (Ibuprofen 400 Mg Tablet) 400 mg PO Q6H PRN PRN Reason: Fever or Pain, Mild (Pain Scale 1-3) Last Admin: 06/30/23 10:22 Dose: 400 mg Documented By: JIM Ondansetron HCl (Ondansetron Hcl 4 Mg/2 Ml Vial) 4 mg IVPUSH Q8H PRN PRN Reason: Nausea and Vomiting Sodium Chloride (0.9 % Sodium Chloride Flush 3 Ml Syringe) 3 ml IVFLUSH QSHIFT [facility] Last Admin: 06/30/23 08:21 Dose: Not Given Documented By: RONI Non-Admin Reason: IV Running Labs 06/30/23 05:02 06/30/23 05:02 Labs: Laboratory Results - last 24 hr 06/29/23 06/29/23 06/29/23 16:31 16:31 16:31 MCV MCH MCHC RDW Plt Count MPV Immature Gran % (Auto) Neut % (Auto) Lymph % (Auto) [place] % (Auto) Eos % (Auto) Baso % (Auto) Lymph # (Auto) [place] # (Auto) Eos # (Auto) Baso # (Auto) Abs Immat Gran (auto) Absolute Neuts (auto) Absolute Nucleated RBC Nucleated RBC % (auto) Anion Gap Estim Creat Clear Calc Estimated GFR Random Glucose Calcium Hold Yellow Top See Note Urine Color Urine Appearance Urine pH Ur Specific [place] Urine Protein Urine Glucose (UA) Urine Ketones Urine Blood Urine Nitrite Ur Leukocyte Esterase Urine RBC Urine WBC Ur Squamous Epith Cells Urine Bacteria Hyaline Casts CSF Tube Number 2 Cancelled 1 CSF Volume CSF Appearance CSF Color CSF WBC CSF RBC CSF Neutrophils CSF Lymphocytes CSF Monocytes % CSF Other Cells % CSF Appearance (b) CSF Total Protein 06/29/23 06/29/23 06/29/23 16:31 16:31 16:31 MCV MCH MCHC RDW Plt Count MPV Immature Gran % (Auto) Neut % (Auto) Lymph % (Auto) [place] % (Auto) Eos % (Auto) Baso % (Auto) Lymph # (Auto) [place] # (Auto) Eos # (Auto) Baso # (Auto) Abs Immat Gran (auto) Absolute Neuts (auto) Absolute Nucleated RBC Nucleated RBC % (auto) Anion Gap Estim Creat Clear Calc Estimated GFR Random Glucose Calcium Hold Yellow Top Urine Color Urine Appearance Urine pH Ur Specific [place] Urine Protein Urine Glucose (UA) Urine Ketones Urine Blood Urine Nitrite Ur Leukocyte Esterase Urine RBC Urine WBC Ur Squamous Epith Cells Urine Bacteria Hyaline Casts CSF Tube Number 4 CSF Volume Cancelled 0.5 0.5 CSF Appearance Cancelled CSF Color CSF WBC CSF RBC CSF Neutrophils CSF Lymphocytes CSF Monocytes % CSF Other Cells % CSF Appearance (b) CSF Total Protein 06/29/23 06/29/23 06/29/23 16:31 16:31 16:31 MCV MCH MCHC RDW Plt Count MPV Immature Gran % (Auto) Neut % (Auto) Lymph % (Auto) [place] % (Auto) Eos % (Auto) Baso % (Auto) Lymph # (Auto) [place] # (Auto) Eos # (Auto) Baso # (Auto) Abs Immat Gran (auto) Absolute Neuts (auto) Absolute Nucleated RBC Nucleated RBC % (auto) Anion Gap Estim Creat Clear Calc Estimated GFR Random Glucose Calcium Hold Yellow Top Urine Color Urine Appearance Urine pH Ur Specific [place] Urine Protein Urine Glucose (UA) Urine Ketones Urine Blood Urine Nitrite Ur Leukocyte Esterase Urine RBC Urine WBC Ur Squamous Epith Cells Urine Bacteria Hyaline Casts CSF Tube Number CSF Volume CSF Appearance CLEAR CLEAR CSF Color Cancelled COLORLESS CSF WBC CSF RBC CSF Neutrophils CSF Lymphocytes CSF Monocytes % CSF Other Cells % CSF Appearance (b) CSF Total Protein 06/29/23 06/29/23 06/29/23 16:31 16:31 16:31 MCV MCH MCHC RDW Plt Count MPV Immature Gran % (Auto) Neut % (Auto) Lymph % (Auto) [place] % (Auto) Eos % (Auto) Baso % (Auto) Lymph # (Auto) [place] # (Auto) Eos # (Auto) Baso # (Auto) Abs Immat Gran (auto) Absolute Neuts (auto) Absolute Nucleated RBC Nucleated RBC % (auto) Anion Gap Estim Creat Clear Calc Estimated GFR Random Glucose Calcium Hold Yellow Top Urine Color Urine Appearance Urine pH Ur Specific [place] Urine Protein Urine Glucose (UA) Urine Ketones Urine Blood Urine Nitrite Ur Leukocyte Esterase Urine RBC Urine WBC Ur Squamous Epith Cells Urine Bacteria Hyaline Casts CSF Tube Number CSF Volume CSF Appearance CSF Color COLORLESS CSF WBC Cancelled 27 H* 16 H* CSF RBC Cancelled CSF Neutrophils CSF Lymphocytes CSF Monocytes % CSF Other Cells % CSF Appearance (b) CSF Total Protein 06/29/23 06/29/23 06/29/23 16:31 16:31 16:31 MCV MCH MCHC RDW Plt Count MPV Immature Gran % (Auto) Neut % (Auto) Lymph % (Auto) [place] % (Auto) Eos % (Auto) Baso % (Auto) Lymph # (Auto) [place] # (Auto) Eos # (Auto) Baso # (Auto) Abs Immat Gran (auto) Absolute Neuts (auto) Absolute Nucleated RBC Nucleated RBC % (auto) Anion Gap Estim Creat Clear Calc Estimated GFR Random Glucose Calcium Hold Yellow Top Urine Color Urine Appearance Urine pH Ur Specific [place] Urine Protein Urine Glucose (UA) Urine Ketones Urine Blood Urine Nitrite Ur Leukocyte Esterase Urine RBC Urine WBC Ur Squamous Epith Cells Urine Bacteria Hyaline Casts CSF Tube Number CSF Volume CSF Appearance CSF Color CSF WBC CSF RBC 105 0 CSF Neutrophils Cancelled CSF Lymphocytes Cancelled 90 CSF Monocytes % CSF Other Cells % CSF Appearance (b) CSF Total Protein 06/29/23 06/29/23 06/29/23 16:31 16:31 16:31 MCV MCH MCHC RDW Plt Count MPV Immature Gran % (Auto) Neut % (Auto) Lymph % (Auto) [place] % (Auto) Eos % (Auto) Baso % (Auto) Lymph # (Auto) [place] # (Auto) Eos # (Auto) Baso # (Auto) Abs Immat Gran (auto) Absolute Neuts (auto) Absolute Nucleated RBC Nucleated RBC % (auto) Anion Gap Estim Creat Clear Calc Estimated GFR Random Glucose Calcium Hold Yellow Top Urine Color Urine Appearance Urine pH Ur Specific [place] Urine Protein Urine Glucose (UA) Urine Ketones Urine Blood Urine Nitrite Ur Leukocyte Esterase Urine RBC Urine WBC Ur Squamous Epith Cells Urine Bacteria Hyaline Casts CSF Tube Number CSF Volume CSF Appearance CSF Color CSF WBC CSF RBC CSF Neutrophils CSF Lymphocytes 91 CSF Monocytes % Cancelled 10 9 CSF Other Cells % Cancelled CSF Appearance (b) Clear, Colorless CSF Total Protein 79.0 H 06/30/23 06/30/23 05:02 06:04 MCV 78.5 L MCH 26.8 L MCHC 34.1 RDW 12.6 Plt Count 246 MPV 10.1 Immature Gran % (Auto) 0.7 H Neut % (Auto) 84.8 H Lymph % (Auto) 14.1 L [place] % (Auto) 0.3 L Eos % (Auto) 0.0 Baso % (Auto) 0.1 Lymph # (Auto) 1.3 [place] # (Auto) 0.0 L Eos # (Auto) 0.0 Baso # (Auto) 0.0 Abs Immat Gran (auto) 0.06 H Absolute Neuts (auto) 7.8 Absolute Nucleated RBC 0.000 Nucleated RBC % (auto) 0.0 Anion Gap 19 Estim Creat Clear Calc 55.6 Estimated GFR 49 Random Glucose 323 H Calcium 9.9 Hold Yellow Top Urine Color Yellow Urine Appearance Clear Urine pH 5.5 Ur Specific [place] >= 1.030 H Urine Protein Negative Urine Glucose (UA) >=1000 H Urine Ketones 40 Urine Blood Negative Urine Nitrite Negative Ur Leukocyte Esterase Negative Urine RBC 0-2 Urine WBC 0-5 Ur Squamous Epith Cells 0-2 Urine Bacteria 1+ Hyaline Casts 0-2 CSF Tube Number CSF Volume CSF Appearance CSF Color CSF WBC CSF RBC CSF Neutrophils CSF Lymphocytes CSF Monocytes % CSF Other Cells % CSF Appearance (b) CSF Total Protein Microbiology Microbiology Results: Microbiology 06/29/23 16:31 Gram Stain - Final Cerebrospinal Fluid CSF Examination - Final Fluid Description - Final CSF Culture - Preliminary No growth to date. Assessment and Plan (1) Urinary incontinence: Status: Acute (2) Hydronephrosis: Status: Acute (3) Leg weakness: Status: Acute Plan A 62 years old lady with no significant PMH who presents to the hospital complaining of lower extremities weakness for last 2 days. Upper and lower extremities weakness DDx: MS ? atypical GBS ? spinal cord problem? MR Lumbar spine: no acute findings but multiple arthropathy and disc problems Head CT no acute findings Pending MRI Brain and Cervical spine CSF Analysis and culture Neurology following 2/3 days of 1 gm Solumedrol PT\OT Neurochecks Q4 Left sided hydronephrosis noted on MRI US showing normal size kidney with severe hydronephrosis and possible distal stone urology evaluation, non surgical at this point, get CT DVT PPx Lovenox The patient will need overnight hospital stay to finish pulse steroid therapy pending further images, clinical improvement and specialists opinion Quality Stroke Does the patient have a stroke diagnosis?: No VTE Prior VTE?: No VTE Risk Level:: Medical - moderate - high VTE Device Contraindication: Treatment Not Indicated VTE Drug Contraindication: N/A - Med Ordered
[2023-06-30 10:34] VITALS: BMI 36.7
--- NOTE | 2023-06-30 11:30 | MHC.CM.PN ---
Addendum entered by Renata Graves RN 06/30/23 11:40: Patient is aware she is not eligible for home services, as she does not have a PCP. 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 She is independent at baseline, now with weakness to BLE's. Does not have a PCP. Brochure provided. Patient completed HCP naming agents 1) sister Radha and 2) daughter Yue DP: PT rec acute rehab. CM reviewed recommendation w/ patient. 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 Family is assisting with father's care at this time. Will consider rehab if still needed [place]. All [place]'s in the area are following. CM will continue to follow.
[2023-06-30 15:18] VITALS: BP 170/102; PULSE 95; RESP 20; O2SAT 94
--- NOTE | 2023-06-30 15:28 | P.PNNE_ITS ---
Subjective Subjective Date of Service: 06/30/23 Interval History: She feels weaker overall, mainly in upper extremities today . She finds it hard to move in bed. She's also had a persistent left frontal headache Critical Care Time (minutes): 0 Physical Exam 2 Vital Signs: Vital Signs: Last Vital Signs Temp 98 F 06/30/23 10:08 Pulse 95 06/30/23 15:18 Resp 20 06/30/23 15:18 BP 170/102 H 06/30/23 15:18 Pulse Ox 94 06/30/23 15:18 O2 Del Method Room Air 06/30/23 15:18 BMI result Body Mass Index 36.7 Const: Other: Constitutional : Awake, interactive, not in distress Neck : Normal inspection, Supple Cardiovascular : RRR, no JVP, no lower extremity edema Respiratory : good bilateral air entry, no crackles, wheezes or rhonchi Gastrointestinal: soft, lax, Normal bowel sounds, Non tender Skin : Warm, Dry Neurological : Alert & oriented x3, normal speech, CN 2-12 within normal, mild weakness upper extremities, Lower ex weakness 3/5 bilaterally. Brisk DTR General: cooperative, healthy appearing and no acute distress O rientation/consciousness: patient oriented x3 HEENT: Head: Yes normal to inspection, Yes normocephalic and Yes atraumatic Eyes: Conjunctivae: conjunctivae normal Neck: Neck: Yes normal visual inspection and Yes trachea midline Chest: Chest palpation & inspection: normal inspection of the chest Resp: Effort & Inspection: normal respiratory effort Cardio: Rate: regular rate GI: Inspection: Yes normal to inspection Palpation (GI): Soft to palpation : General: No no CVA tenderness Back/Spine/Pelvis: Back: No no CVA tenderness Neuro: Other: She's alert and oriented with normal intellectual functions. Cranial nerves II through: Normal. There may be a hint of eye closure weakness on the right. Tongue protrudes in the midline. She has minimal weakness of neck flexion. She has Moderate weakness in the upper extremities. In the triceps and deltoids at 4+/5. weakness in the right roll tube setter>left. Lower extremity proximal strength is 3/5 distal strength is 4/5. Reflexes are 2-3+3+ knees, 2+ ankles and plantar responses are equivocal extensor Bilaterally. There are no sensory deficits. Gait was not tested. General: patient oriented x3 Extrem: General: No edema Psych: Appearance: grossly normal Objective Data Labs 06/30/23 05:02 06/30/23 05:02 Labs: Laboratory Results - last 24 hr 06/29/23 06/29/23 06/29/23 16:31 16:31 16:31 WBC RBC Hgb Hct MCV MCH MCHC RDW Plt Count MPV Immature Gran % (Auto) Neut % (Auto) Lymph % (Auto) Haakon % (Auto) Eos % (Auto) Baso % (Auto) Lymph # (Auto) Haakon # (Auto) Eos # (Auto) Baso # (Auto) Abs Immat Gran (auto) Absolute Neuts (auto) Absolute Nucleated RBC Nucleated RBC % (auto) Sodium Potassium Chloride Carbon Dioxide Anion Gap BUN Creatinine Estim Creat Clear Calc Estimated GFR Random Glucose Calcium Hold Yellow Top See Note Urine Color Urine Appearance Urine pH Ur Specific [place] Urine Protein Urine Glucose (UA) Urine Ketones Urine Blood Urine Nitrite Ur Leukocyte Esterase Urine RBC Urine WBC Ur Squamous Epith Cells Urine Bacteria Hyaline Casts CSF Tube Number 2 Cancelled 1 CSF Volume CSF Appearance CSF Color CSF WBC CSF RBC CSF Neutrophils CSF Lymphocytes CSF Monocytes % CSF Other Cells % CSF Appearance (b) CSF Total Protein 06/29/23 06/29/23 06/29/23 16:31 16:31 16:31 WBC RBC Hgb Hct MCV MCH MCHC RDW Plt Count MPV Immature Gran % (Auto) Neut % (Auto) Lymph % (Auto) Haakon % (Auto) Eos % (Auto) Baso % (Auto) Lymph # (Auto) Haakon # (Auto) Eos # (Auto) Baso # (Auto) Abs Immat Gran (auto) Absolute Neuts (auto) Absolute Nucleated RBC Nucleated RBC % (auto) Sodium Potassium Chloride Carbon Dioxide Anion Gap BUN Creatinine Estim Creat Clear Calc Estimated GFR Random Glucose Calcium Hold Yellow Top Urine Color Urine Appearance Urine pH Ur Specific [place] Urine Protein Urine Glucose (UA) Urine Ketones Urine Blood Urine Nitrite Ur Leukocyte Esterase Urine RBC Urine WBC Ur Squamous Epith Cells Urine Bacteria Hyaline Casts CSF Tube Number 4 CSF Volume Cancelled 0.5 0.5 CSF Appearance Cancelled CSF Color CSF WBC CSF RBC CSF Neutrophils CSF Lymphocytes CSF Monocytes % CSF Other Cells % CSF Appearance (b) CSF Total Protein 06/29/23 06/29/23 06/29/23 16:31 16:31 16:31 WBC RBC Hgb Hct MCV MCH MCHC RDW Plt Count MPV Immature Gran % (Auto) Neut % (Auto) Lymph % (Auto) Haakon % (Auto) Eos % (Auto) Baso % (Auto) Lymph # (Auto) Haakon # (Auto) Eos # (Auto) Baso # (Auto) Abs Immat Gran (auto) Absolute Neuts (auto) Absolute Nucleated RBC Nucleated RBC % (auto) Sodium Potassium Chloride Carbon Dioxide Anion Gap BUN Creatinine Estim Creat Clear Calc Estimated GFR Random Glucose Calcium Hold Yellow Top Urine Color Urine Appearance Urine pH Ur Specific [place] Urine Protein Urine Glucose (UA) Urine Ketones Urine Blood Urine Nitrite Ur Leukocyte Esterase Urine RBC Urine WBC Ur Squamous Epith Cells Urine Bacteria Hyaline Casts CSF Tube Number CSF Volume CSF Appearance CLEAR CLEAR CSF Color Cancelled COLORLESS CSF WBC CSF RBC CSF Neutrophils CSF Lymphocytes CSF Monocytes % CSF Other Cells % CSF Appearance (b) CSF Total Protein 06/29/23 06/29/23 06/29/23 16:31 16:31 16:31 WBC RBC Hgb Hct MCV MCH MCHC RDW Plt Count MPV Immature Gran % (Auto) Neut % (Auto) Lymph % (Auto) Haakon % (Auto) Eos % (Auto) Baso % (Auto) Lymph # (Auto) Haakon # (Auto) Eos # (Auto) Baso # (Auto) Abs Immat Gran (auto) Absolute Neuts (auto) Absolute Nucleated RBC Nucleated RBC % (auto) Sodium Potassium Chloride Carbon Dioxide Anion Gap BUN Creatinine Estim Creat Clear Calc Estimated GFR Random Glucose Calcium Hold Yellow Top Urine Color Urine Appearance Urine pH Ur Specific [place] Urine Protein Urine Glucose (UA) Urine Ketones Urine Blood Urine Nitrite Ur Leukocyte Esterase Urine RBC Urine WBC Ur Squamous Epith Cells Urine Bacteria Hyaline Casts CSF Tube Number CSF Volume CSF Appearance CSF Color COLORLESS CSF WBC Cancelled 27 H* 16 H* CSF RBC Cancelled CSF Neutrophils CSF Lymphocytes CSF Monocytes % CSF Other Cells % CSF Appearance (b) CSF Total Protein 06/29/23 06/29/23 06/29/23 16:31 16:31 16:31 WBC RBC Hgb Hct MCV MCH MCHC RDW Plt Count MPV Immature Gran % (Auto) Neut % (Auto) Lymph % (Auto) Haakon % (Auto) Eos % (Auto) Baso % (Auto) Lymph # (Auto) Haakon # (Auto) Eos # (Auto) Baso # (Auto) Abs Immat Gran (auto) Absolute Neuts (auto) Absolute Nucleated RBC Nucleated RBC % (auto) Sodium Potassium Chloride Carbon Dioxide Anion Gap BUN Creatinine Estim Creat Clear Calc Estimated GFR Random Glucose Calcium Hold Yellow Top Urine Color Urine Appearance Urine pH Ur Specific [place] Urine Protein Urine Glucose (UA) Urine Ketones Urine Blood Urine Nitrite Ur Leukocyte Esterase Urine RBC Urine WBC Ur Squamous Epith Cells Urine Bacteria Hyaline Casts CSF Tube Number CSF Volume CSF Appearance CSF Color CSF WBC CSF RBC 105 0 CSF Neutrophils Cancelled CSF Lymphocytes Cancelled 90 CSF Monocytes % CSF Other Cells % CSF Appearance (b) CSF Total Protein 06/29/23 06/29/23 06/29/23 16:31 16:31 16:31 WBC RBC Hgb Hct MCV MCH MCHC RDW Plt Count MPV Immature Gran % (Auto) Neut % (Auto) Lymph % (Auto) Haakon % (Auto) Eos % (Auto) Baso % (Auto) Lymph # (Auto) Haakon # (Auto) Eos # (Auto) Baso # (Auto) Abs Immat Gran (auto) Absolute Neuts (auto) Absolute Nucleated RBC Nucleated RBC % (auto) Sodium Potassium Chloride Carbon Dioxide Anion Gap BUN Creatinine Estim Creat Clear Calc Estimated GFR Random Glucose Calcium Hold Yellow Top Urine Color Urine Appearance Urine pH Ur Specific [place] Urine Protein Urine Glucose (UA) Urine Ketones Urine Blood Urine Nitrite Ur Leukocyte Esterase Urine RBC Urine WBC Ur Squamous Epith Cells Urine Bacteria Hyaline Casts CSF Tube Number CSF Volume CSF Appearance CSF Color CSF WBC CSF RBC CSF Neutrophils CSF Lymphocytes 91 CSF Monocytes % Cancelled 10 9 CSF Other Cells % Cancelled CSF Appearance (b) Clear, Colorless CSF Total Protein 79.0 H 06/30/23 06/30/23 05:02 06:04 WBC 9.2 RBC 5.78 H Hgb 15.5 Hct 45.4 MCV 78.5 L MCH 26.8 L MCHC 34.1 RDW 12.6 Plt Count 246 MPV 10.1 Immature Gran % (Auto) 0.7 H Neut % (Auto) 84.8 H Lymph % (Auto) 14.1 L Haakon % (Auto) 0.3 L Eos % (Auto) 0.0 Baso % (Auto) 0.1 Lymph # (Auto) 1.3 Haakon # (Auto) 0.0 L Eos # (Auto) 0.0 Baso # (Auto) 0.0 Abs Immat Gran (auto) 0.06 H Absolute Neuts (auto) 7.8 Absolute Nucleated RBC 0.000 Nucleated RBC % (auto) 0.0 Sodium 139 Potassium 3.7 Chloride 105 Carbon Dioxide 19 L Anion Gap 19 BUN 19 H Creatinine 1.13 Estim Creat Clear Calc 55.6 Estimated GFR 49 Random Glucose 323 H Calcium 9.9 Hold Yellow Top Urine Color Yellow Urine Appearance Clear Urine pH 5.5 Ur Specific [place] >= 1.030 H Urine Protein Negative Urine Glucose (UA) >=1000 H Urine Ketones 40 Urine Blood Negative Urine Nitrite Negative Ur Leukocyte Esterase Negative Urine RBC 0-2 Urine WBC 0-5 Ur Squamous Epith Cells 0-2 Urine Bacteria 1+ Hyaline Casts 0-2 CSF Tube Number CSF Volume CSF Appearance CSF Color CSF WBC CSF RBC CSF Neutrophils CSF Lymphocytes CSF Monocytes % CSF Other Cells % CSF Appearance (b) CSF Total Protein Microbiology Microbiology Results: Microbiology 06/29/23 16:31 Cerebrospinal Fluid Gram Stain - Final 06/29/23 16:31 Cerebrospinal Fluid CSF Examination - Final 06/29/23 16:31 Cerebrospinal Fluid Fluid Description - Final 06/29/23 16:31 Cerebrospinal Fluid CSF Culture - Preliminary No growth to date. Progress Note: A&P Assessment and plan (1) Leg weakness: Status: Acute (2) Urinary incontinence: Status: Acute (3) Hydronephrosis: Status: Acute Plan He appears to have an upper cervical cord abnormality possibly demyelinating disease or a very transverse myelitis. Pending MRI Brain and Cervical spine CSF Analysis and cultureSo far shows elevated proteins of 79 and the lymphocytic pleocytosis. MS studies are pending. 2/3 days of 1 gm Solumedrol PT\OT Neurochecks Q4 Time Spent With Patient Time: Total time managing care of this patient today ____ minutes. Procedures Date of Service Date of Service: 06/30/23 Quality Stroke Does the patient have a stroke diagnosis?: No VTE Prior VTE?: No VTE Risk Level:: Medical - moderate - high VTE Device Contraindication: Treatment Not Indicated VTE Drug Contraindication: N/A - Med Ordered
[2023-06-30] MEDS: Butalb/Acetamin/Caff 50/325/40 TABLET 1 TAB PO (15:42)
[2023-06-30] MEDS: Enoxaparin Sodium 40 MG/0.4 ML SYRINGE SUBCUT (17:28)
[2023-06-30] MEDS: LORazepam 2 MG/ML VIAL 1 MG IVPUSH (19:17)
[2023-06-30 19:19] VITALS: BP 172/90; PULSE 100; RESP 19; TEMP 36.7; O2SAT 93
[2023-06-30] MEDS: gadobutroL 10 ML VIAL IVPUSH (20:11)
[2023-07-01 03:24] VITALS: BP 158/82; PULSE 69; RESP 19; TEMP 36.3; O2SAT 93
[2023-07-01 05:39] LABS: Hematocrit 43.8 % (37.0-47.0); Hemoglobin 14.9 g/dl (12.0-16.0); Mean Corpuscular Hemoglobin 27.2 pg (27.0-33.0); Mean Corpuscular Volume 80.1 fL (80.0-98.0); Mean Platelet Volume 10.3 fL (9.4-12.3); Platelet Count 268 X10*3/uL (160-400); Red Blood Count 5.47 X10*6/uL (4.20-5.50); Red Cell Distribution Width 12.7 % (11.0-16.0); White Blood Count 19.5 X10*3/uL (4.8-10.8)
[2023-07-01 05:55] LABS: Anion Gap 15 (12-20); Blood Urea Nitrogen 30 mg/dL (9-16); Calcium 9.7 mg/dL (8.4-10.2); Carbon Dioxide 21 mmol/L (22-29); Chloride 106 mmol/L (96-108); Creatinine Clr Calc Pharmacy 52.4; Estimated Glomerular Filt Rate 47; Glucose Random 338 mg/dL (60-115); Potassium 4.1 mmol/L (3.3-5.1); Sodium 138 mmol/L (135-145)
[2023-07-01 07:31] VITALS: BP 150/79; PULSE 78; RESP 20; TEMP 37.1; O2SAT 95
--- NOTE | 2023-07-01 09:33 | HO.PM.IMPN ---
Subjective Subjective Date of Service: 07/01/23 Interval History: Seen and evaluated this morning Feeling weak today, around the same as before Could not finish the brain MRI, Cervical spine one negative to do brain MR today Review of Systems Review of Systems: Yes all other systems are reviewed and are negative Physical Exam Vital Signs: Vital Signs: Last Vital Signs Temp 98.8 F 07/01/23 07:31 Pulse 78 07/01/23 07:31 Resp 20 07/01/23 07:31 BP 150/79 H 07/01/23 07:31 Pulse Ox 95 07/01/23 07:31 O2 Del Method Room Air 07/01/23 07:31 BMI result Body Mass Index 36.7 Const: Other: Constitutional : Awake, interactive, not in distress Neck : Normal inspection, Supple Cardiovascular : RRR, no JVP, no lower extremity edema Respiratory : good bilateral air entry, no crackles, wheezes or rhonchi Gastrointestinal: soft, lax, Normal bowel sounds, Non tender Skin : Warm, Dry Neurological : Alert & oriented x3, normal speech, CN 2-12 within normal, mild weakness upper extremities, Lower ex weakness 3/5 bilaterally. Brisk DTR Objective Data Active Medications Acetaminophen/Butalbital/Caffeine (Butalb/Acetamin/Caff 50/325/40 Tablet) 1 tab PO Q4H PRN PRN Reason: Headache Last Admin: 06/30/23 15:42 Dose: 1 tab Documented By: JIM Enoxaparin Sodium (Enoxaparin Sodium 40 Mg/0.4 Ml Syringe) 40 mg SUBCUT Q24H [facility] Last Admin: 06/30/23 17:28 Dose: 40 mg Documented By: JIM Methylprednisolone Sodium Succinate 1,000 mg/ Sodium Chloride 66 mls @ 66 mls/hr IV DAILY MARIELLE Stop: 07/01/23 09:59 Last Infusion: 06/30/23 09:51 Dose: Infused Documented By: JIM Ibuprofen (Ibuprofen 400 Mg Tablet) 400 mg PO Q6H PRN PRN Reason: Fever or Pain, Mild (Pain Scale 1-3) Last Admin: 06/30/23 10:22 Dose: 400 mg Documented By: JIM Lorazepam (Lorazepam 2 Mg/Ml Vial) 1 mg IVPUSH ONCE PRN PRN Reason: PRe-MRI Ondansetron HCl (Ondansetron Hcl 4 Mg/2 Ml Vial) 4 mg IVPUSH Q8H PRN PRN Reason: Nausea and Vomiting Sodium Chloride (0.9 % Sodium Chloride Flush 3 Ml Syringe) 3 ml IVFLUSH QSHIFT [facility] Last Admin: 06/30/23 19:19 Dose: 3 ml Documented By: ALVIN Labs 07/01/23 05:24 07/01/23 05:24 Labs: Laboratory Results - last 24 hr 07/01/23 05:24 MCV 80.1 MCH 27.2 MCHC 34.0 RDW 12.7 Plt Count 268 MPV 10.3 Absolute Nucleated RBC 0.000 Nucleated RBC % (auto) 0.0 Anion Gap 15 Estim Creat Clear Calc 52.4 Estimated GFR 47 Random Glucose 338 H Calcium 9.7 Microbiology Microbiology Results: Microbiology 06/29/23 16:31 Gram Stain - Final Cerebrospinal Fluid CSF Examination - Final Fluid Description - Final CSF Culture - Preliminary No growth after 1 day Assessment and Plan (1) Urinary incontinence: Status: Acute (2) Hydronephrosis: Status: Acute (3) Muscle weakness of all 4 extremities: Status: Acute Plan A 62 years old lady with no significant PMH who presents to the hospital complaining of lower extremities weakness for last 2 days. Upper and lower extremities weakness DDx: MS ? spinal cord problem? transverse myelitis ? Head CT no acute findings MR Lumbar spine: no acute findings but multiple arthropathy and disc problems MR Cervical spine: no definite cord signal abnormality or enhancement Pending MRI Brain CSF Analysis and culture reviewed Neurology following, continue steroids therapy 3/3 days of 1 gm Solumedrol PT\OT Neurochecks Q4 Left sided hydronephrosis noted on MRI US showing normal size kidney with severe hydronephrosis and possible distal stone CT showingn Chronic left hydroureteronephrosis with dilated ureter extending to the mid segment likely from stricture. No radiopaque calculi seen. urology evaluation, non surgical at this point Anxiety Increased levels will get psychiatry evaluation start small dose Atarax PRN for now DVT PPx Lovenox The patient will need overnight hospital stay to finish pulse steroid therapy pending further images, clinical improvement and specialists opinion Quality Stroke Does the patient have a stroke diagnosis?: No VTE Prior VTE?: No VTE Risk Level:: Medical - moderate - high VTE Device Contraindication: Treatment Not Indicated VTE Drug Contraindication: N/A - Med Ordered
[2023-07-01] MEDS: 0.9 % Sodium Chloride Flush 3 ML SYRINGE IVFLUSH ×3 (10:30→19:19)
[2023-07-01] MEDS: methylPREDNISolone Sod Succ 1,000 MG in 0.9 % Sodium Chloride 50 ML 66 MG IV (10:30)
[2023-07-01] MEDS: hydrOXYzine HCL 25 MG TABLET PO ×2 (10:58→17:22)
[2023-07-01] MEDS: LORazepam 2 MG/ML VIAL 1 MG IVPUSH (11:30)
[2023-07-01] MEDS: gadobutroL 10 ML VIAL IVPUSH (12:36)
[2023-07-01 14:06] VITALS: BP 150/79; PULSE 78; O2SAT 95
[2023-07-01 15:39] VITALS: BP 148/87; PULSE 78; RESP 16; TEMP 36.8; O2SAT 92
[2023-07-01 15:56] LABS: INTERNATIONAL NORM RATIO 0.9 (0.9-1.1); Prothrombin Time 10.7 SEC (11.1-13.3)
[2023-07-01] MEDS: iohexoL 350 MG/ML 100 ML INFUS..BTL 70 ML IV (16:49)
[2023-07-01] MEDS: Enoxaparin Sodium 40 MG/0.4 ML SYRINGE SUBCUT (17:22)
[2023-07-01] MEDS: Atorvastatin Calcium 40 MG TABLET PO (19:18)
[2023-07-01] MEDS: Clopidogrel Bisulfate 75 MG TABLET PO (19:19)
[2023-07-01 19:23] VITALS: BP 143/83; PULSE 79; RESP 16; TEMP 36.6; O2SAT 93
[2023-07-02 03:36] VITALS: BP 164/96; PULSE 66; RESP 16; TEMP 36; O2SAT 96
[2023-07-02] MEDS: hydrOXYzine HCL 25 MG TABLET PO ×2 (04:00→10:28)
[2023-07-02] MEDS: Omeprazole 40 MG CAPSULE.DR PO (06:22)
[2023-07-02 07:21] LABS: Cholesterol 282 mg/dL (<200); HDL Cholesterol 29 mg/dL (>40); Triglycerides 450 mg/dL (<150)
[2023-07-02 07:27] VITALS: BP 147/80; PULSE 64; RESP 18; TEMP 36.3; O2SAT 94
[2023-07-02] MEDS: Aspirin Enteric Coated 81 MG TABLET.DR PO (08:04)
[2023-07-02] MEDS: 0.9 % Sodium Chloride Flush 3 ML SYRINGE IVFLUSH ×3 (08:04→19:15)
[2023-07-02] MEDS: Clopidogrel Bisulfate 75 MG TABLET PO (08:04)
--- NOTE | 2023-07-02 10:28 | P.PNIM_ITS ---
Subjective Subjective Date of Service: 07/02/23 Interval History: Seen and evaluated this morning weakness still significant mildly better, not worsening MRI showed bilateral medullary infarct CTA showed right verteberal artery occlusion tolerating diet Review of Systems Review of Systems: Yes all other systems are reviewed and are negative Physical Exam 2 Vital Signs: Vital Signs: Last Vital Signs Temp 97.3 F 07/02/23 07:27 Pulse 64 07/02/23 07:27 Resp 18 07/02/23 07:27 BP 147/80 H 07/02/23 07:27 Pulse Ox 94 07/02/23 07:27 O2 Del Method Room Air 07/02/23 07:27 BMI result Body Mass Index 36.7 Const: Other: Constitutional : Awake, interactive, not in distress Neck : Normal inspection, Supple Cardiovascular : RRR, no JVP, no lower extremity edema Respiratory : good bilateral air entry, no crackles, wheezes or rhonchi Gastrointestinal: soft, lax, Normal bowel sounds, Non tender Skin : Warm, Dry Neurological : Alert & oriented x3, normal speech, CN 2-12 within normal, mild weakness upper extremities, Lower ex weakness 3+/5 bilaterally. Brisk DTR Objective Data Active Medications Acetaminophen/Butalbital/Caffeine (Butalb/Acetamin/Caff 50/325/40 Tablet) 1 tab PO Q4H PRN PRN Reason: Headache Last Admin: 06/30/23 15:42 Dose: 1 tab Documented By: JIM Aspirin (Aspirin Enteric Coated 81 Mg Tablet.) 81 mg PO DAILY [facility] Last Admin: 07/02/23 08:04 Dose: 81 mg Documented By: IRAM Atorvastatin Calcium (Atorvastatin Calcium 40 Mg Tablet) 40 mg PO BEDTIME [facility] Last Admin: 07/01/23 19:18 Dose: 40 mg Documented By: ALVIN Clopidogrel Bisulfate (Clopidogrel Bisulfate 75 Mg Tablet) 75 mg PO DAILY [facility] Last Admin: 07/02/23 08:04 Dose: 75 mg Documented By: IRAM Enoxaparin Sodium (Enoxaparin Sodium 40 Mg/0.4 Ml Syringe) 40 mg SUBCUT Q24H [facility] Last Admin: 07/01/23 17:22 Dose: 40 mg Documented By: IRAM Hydroxyzine HCl (Hydroxyzine Hcl 25 Mg Tablet) 25 mg PO Q6H PRN PRN Reason: anxiety/restlessness Last Admin: 07/02/23 04:00 Dose: 25 mg Documented By: ALVIN Ibuprofen (Ibuprofen 400 Mg Tablet) 400 mg PO Q6H PRN PRN Reason: Fever or Pain, Mild (Pain Scale 1-3) Last Admin: 06/30/23 10:22 Dose: 400 mg Documented By: JIM Lorazepam (Lorazepam 2 Mg/Ml Vial) 1 mg IVPUSH ONCE PRN PRN Reason: PRe-MRI Last Admin: 07/01/23 11:30 Dose: 1 mg Documented By: IRAM Omeprazole (Omeprazole 40 Mg Capsule.Dr) 40 mg PO DAILY@0630 [facility] Last Admin: 07/02/23 06:22 Dose: 40 mg Documented By: ALVIN Ondansetron HCl (Ondansetron Hcl 4 Mg/2 Ml Vial) 4 mg IVPUSH Q8H PRN PRN Reason: Nausea and Vomiting Sodium Chloride (0.9 % Sodium Chloride Flush 3 Ml Syringe) [facility] Last Admin: 07/02/23 08:04 Dose: 3 ml Documented By: IRAM Labs 07/01/23 05:24 07/01/23 05:24 Labs: Laboratory Results - last 24 hr 07/01/23 07/01/23 07/02/23 05:24 15:20 06:49 Hold Purple Top SEE NOTE PT 10.7 L INR 0.9 APTT 20.0 L Total Creatine Kinase 147 H Triglycerides 450 H Cholesterol 282 H LDL Cholesterol, Calc TNP HDL Cholesterol 29 L Microbiology Microbiology Results: Microbiology 06/29/23 16:31 Gram Stain - Final Cerebrospinal Fluid CSF Examination - Final Fluid Description - Final CSF Culture - Preliminary No growth after 2 days Assessment and Plan (1) Muscle weakness of all 4 extremities: Status: Acute (2) Infarction of medulla oblongata: Status: Acute (3) Hydronephrosis: Status: Acute (4) Anxiety: Status: Acute Plan A 62 years old lady with no significant PMH who presents to the hospital complaining of lower extremities weakness for last 2 days. Upper and lower extremities weakness 2/2 Bilateral Medullary stroke Head CT, MR Lumbar spine, MR Cervical spine: no definite abnormality or enhancement MRI Brain showed bilateral medullary infarct CTA showing distal right vertebral artery occlusion CSF pending MS, Lyme and infx Panel Finished 3 days of pulse steroid therapy Neurology following, Start ASA, Plavix for 3 months and Atorvastatin PT\OT Neurochecks Q4 Left sided hydronephrosis noted on MRI US showing normal size kidney with severe hydronephrosis and possible distal stone CT showingn Chronic left hydroureteronephrosis with dilated ureter extending to the mid segment likely from stricture. No radiopaque calculi seen. urology evaluation, non surgical at this point Anxiety Increased levels psychiatry evaluation start small dose Atarax PRN for now DVT PPx Lovenox The patient will need overnight hospital stay PT\OT, clinical improvement and pending CSF results Quality Stroke Does the patient have a stroke diagnosis?: No VTE Prior VTE?: No VTE Risk Level:: Medical - moderate - high VTE Device Contraindication: Treatment Not Indicated VTE Drug Contraindication: N/A - Med Ordered
[2023-07-02 11:05] LABS: Alanine Aminotransferase 17 U/L (0-31); Albumin Level 4.1 g/dL (3.5-5.0); Alkaline Phosphatase 101 U/L (39-117); Aspartate Amino Transferase 12 U/L (5-31); Bilirubin Direct 0.2 mg/dL (0.0-0.5); Bilirubin Total 0.7 mg/dL (0.0-1.0)
[2023-07-02 13:34] LABS: Cryptococcus neoformans/gattii Not Detected (Not Detect.); Enterovirus Not Detected (Not Detect.); Escherichia coli K1 Not Detected (Not Detect.); Haemophilus influenzae Not Detected (Not Detect.); Herpes simplex virus 1 Not Detected (Not Detect.); Herpes simplex virus 2 Not Detected (Not Detect.); Human herpesvirus 6 Not Detected (Not Detect.); Human parechovirus Not Detected (Not Detect.); Listeria monocytogenes Not Detected (Not Detect.); Neisseria meningitidis Not Detected (Not Detect.); Streptococcus agalactiae Not Detected (Not Detect.); Streptococcus pneumoniae Not Detected (Not Detect.); Varicella zoster virus Not Detected (Not Detect.)
--- NOTE | 2023-07-02 13:54 | P.PNUR_ITS ---
Subjective Subjective Date of Service: 07/02/23 Interval history: Creatinine stable Imaging shows left distal stricture - The right kidney is normal size, shape and position. No radiopaque calculi or hydronephrosis seen. There is chronic left hydroureter nephrosis with hydroureteronephrosis extending to the mid segment likely from stricture. No radiopaque calculi seen in the left ureter Medullary Stroke No acute urologic issue Physical Exam 2 Vital Signs: Vital Signs: Last Vital Signs Temp 97.3 F 07/02/23 07:27 Pulse 64 07/02/23 07:27 Resp 18 07/02/23 07:27 BP 147/80 H 07/02/23 07:27 Pulse Ox 94 07/02/23 07:27 O2 Del Method Room Air 07/02/23 07:27 BMI result Body Mass Index 36.7 Const: General: cooperative, healthy appearing, comfortable and no acute distress Orientation/consciousness: patient oriented x3 HEENT: Face and sinus: Yes normal facial exam Mouth: moist mucous membranes Neck: Neck: Yes normal visual inspection, Yes full ROM and Yes trachea midline Chest: Chest palpation & inspection: normal inspection of the chest Resp: Effort & Inspection: normal respiratory effort, able to speak in complete sentences and no respiratory distress GI: Inspection: Yes normal to inspection Back/Spine/Pelvis: Cervical Spine: normal cervical lordosis Thoracic/Lumbar Spine: thoracic and lumbar spine normal to inspection Skin: General skin exam: no rashes or lesions noted Neuro: General: patient oriented x3, tone normal and moves all extremities Extrem: General: Yes normal to inspection and Yes capillary refill normal Urology Results Labs 07/01/23 05:24 07/01/23 05:24 Labs: Laboratory Results - last 24 hr 06/29/23 07/01/23 07/02/23 16:31 15:20 06:49 Hold Purple Top SEE NOTE PT 10.7 L INR 0.9 APTT 20.0 L Total Bilirubin 0.7 Direct Bilirubin 0.2 AST 12 ALT 17 Alkaline Phosphatase 101 Total Protein 7.0 Albumin 4.1 Triglycerides 450 H Cholesterol 282 H LDL Cholesterol, Calc TNP HDL Cholesterol 29 L CSF C.neoform/gat PCR Not Detected CSF CMV DNA (PCR) Not Detected CSF Enterovirus (PCR) Not Detected CSF E. coli K1 (PCR) Not Detected CSF H. influenzae (PCR) Not Detected CSF HSV I (PCR) Not Detected CSF HSV II (PCR) Not Detected CSF HHV 6 (PCR) Not Detected CSF L.monocytogenes PCR Not Detected CSF N. meningitidis PCR Not Detected CSF Parechovirus (PCR) Not Detected CSF S. agalactiae (PCR) Not Detected CSF S. pneumoniae (PCR) Not Detected CSF VZV (PCR) Not Detected Progress Note: A&P Assessment and plan (1) Acquired stricture of ureter: Status: Acute Plan no acute urologic issues Time Spent With Patient Time: Total time managing care of this patient today ____ minutes. Progress Note: Quality Stroke Does the patient have a stroke diagnosis?: No
--- NOTE | 2023-07-02 15:05 | P.CNPS_ITS ---
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 Psych consulted for recs regarding pts anxiety over dx. Patient reports that she has been anxious in the hospital, processing the fact that she just had a stroke. She denies any psychiatric history, any significant history of anxiety or depression; she has never been on any psychotropic medications and has no history at all of any SI. She report that while she was with her son and in the middle of a divorce she got a little depressed; however she found herself very capable of coping with it. At this time, patient does not want any medication for anxiety or depression. She just wants help with anxiety when it comes up while she is in the hospital. 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 She reports she has a strong support network and feels she has numerous people to reach out to should she find herself struggling with anxiety/depression post discharge. Denies any history of alcohol/drug abuse Past Psychiatric History: Did not Medical Evaluation Reviewed: Yes Personal & Social History: Patient has supportive daughter and son who were visiting her today [facility] Medical History Obesity (BMI 30-39.9) Diagnostics Vital Signs (24Hr): Vital Signs - 24 hr 07/01/23 14:06 07/01/23 15:39 07/01/23 19:23 Temperature 98.3 F 97.9 F Pulse Rate 78 78 79 Respiratory Rate 16 16 Blood Pressure 150/79 H 148/87 H 143/83 H Pulse Oximetry 95 92 93 Oxygen Delivery Method Room Air 07/02/23 03:36 07/02/23 07:27 Temperature 96.8 F 97.3 F Pulse Rate 66 64 Respiratory Rate 16 18 Blood Pressure 164/96 H 147/80 H Pulse Oximetry 96 94 Oxygen Delivery Method Room Air Room Air BMI result Body Mass Index 36.7 Labs 07/01/23 05:24 07/01/23 05:24 Labs: Laboratory Results - last 48 hr 06/29/23 07/01/23 07/01/23 16:31 05:24 15:20 WBC 19.5 H RBC 5.47 Hgb 14.9 Hct 43.8 MCV 80.1 MCH 27.2 MCHC 34.0 RDW 12.7 Plt Count 268 MPV 10.3 Absolute Nucleated RBC 0.000 Nucleated RBC % (auto) 0.0 Hold Purple Top PT 10.7 L INR 0.9 APTT 20.0 L Sodium 138 Potassium 4.1 Chloride 106 Carbon Dioxide 21 L Anion Gap 15 BUN 30 H Creatinine 1.18 Estim Creat Clear Calc 52.4 Estimated GFR 47 Random Glucose 338 H Calcium 9.7 Total Bilirubin Direct Bilirubin AST ALT Alkaline Phosphatase Total Creatine Kinase 147 H Total Protein Albumin Triglycerides Cholesterol LDL Cholesterol, Calc HDL Cholesterol CSF C.neoform/gat PCR Not Detected CSF CMV DNA (PCR) Not Detected CSF Enterovirus (PCR) Not Detected CSF E. coli K1 (PCR) Not Detected CSF H. influenzae (PCR) Not Detected CSF HSV I (PCR) Not Detected CSF HSV II (PCR) Not Detected CSF HHV 6 (PCR) Not Detected CSF L.monocytogenes PCR Not Detected CSF N. meningitidis PCR Not Detected CSF Parechovirus (PCR) Not Detected CSF S. agalactiae (PCR) Not Detected CSF S. pneumoniae (PCR) Not Detected CSF VZV (PCR) Not Detected 07/02/23 06:49 WBC RBC Hgb Hct MCV MCH MCHC RDW Plt Count MPV Absolute Nucleated RBC Nucleated RBC % (auto) Hold Purple Top SEE NOTE PT INR APTT Sodium Potassium Chloride Carbon Dioxide Anion Gap BUN Creatinine Estim Creat Clear Calc Estimated GFR Random Glucose Calcium Total Bilirubin 0.7 Direct Bilirubin 0.2 AST 12 ALT 17 Alkaline Phosphatase 101 Total Creatine Kinase Total Protein 7.0 Albumin 4.1 Triglycerides 450 H Cholesterol 282 H LDL Cholesterol, Calc TNP HDL Cholesterol 29 L CSF C.neoform/gat PCR CSF CMV DNA (PCR) CSF Enterovirus (PCR) CSF E. coli K1 (PCR) CSF H. influenzae (PCR) CSF HSV I (PCR) CSF HSV II (PCR) CSF HHV 6 (PCR) CSF L.monocytogenes PCR CSF N. meningitidis PCR CSF Parechovirus (PCR) CSF S. agalactiae (PCR) CSF S. pneumoniae (PCR) CSF VZV (PCR) Imaging Radiology Impressions: ITS Impressions Head CT 06/29/23 09:23 IMPRESSION: No acute intracranial pathology. Lumbar Spine MRI 06/29/23 12:54 IMPRESSION: 1. At L3-L4 there is facet arthropathy and there is a central and left-sided disc protrusion. There is narrowing of the left subarticular recess with impingement on the traversing left L4 nerve root. There is a left foraminal disc protrusion extending far laterally with impingement on the exiting and extraforaminal segments of the left L3 nerve root. There is moderate central stenosis. 2. At L4-L5 there is facet arthropathy and there is a posterior disc protrusion. There is narrowing of the bilateral subarticular recesses and there is mild central stenosis. There is a left foraminal disc protrusion impinging on the exiting left L4 nerve root. 3. At L5-S1 there is a left-sided disc protrusion/extrusion extending into the left subarticular recess with impingement on the traversing left S1 nerve root. There is also a left foraminal disc protrusion impinging on the exiting left L5 nerve root. There is no central stenosis. 4. On the current study there is now severe left hydronephrosis with marked atrophy of the renal parenchyma. The proximal left ureter is dilated down to the level of the pelvic inlet. This could be further evaluated clinically and with ultrasound, and consider isotope renal scan to assess renal function and level of obstruction. Renal Ultrasound 06/29/23 19:12 IMPRESSION: Severe left-sided hydronephrosis with possible 7 mm distal left ureteral stone. CT scan would be useful for further evaluation. Abdomen/Pelvis CT 06/30/23 11:50 IMPRESSION: 1. Chronic left hydroureteronephrosis with dilated ureter extending to the mid segment likely from stricture. No radiopaque calculi seen. 2. The right kidney is normal. 3. Cholelithiasis without wall thickening. 4. There is fluid distended and elongated appendix question loculated fluid versus mucocele. Correlate with ultrasound and surgical consultation. Fleischner guidelines were followed. Cervical Spine MRI 06/30/23 20:15 IMPRESSION: Within the constraint of motion degradation, no definite cord signal abnormality or abnormal intramedullary enhancement. No high-grade spinal canal stenosis. Moderate to severe left-sided neural foraminal stenosis at C5-C6 and C6-C7. Brain MRI 07/01/23 12:40 IMPRESSION: 1. Acute infarcts involving the ventral upper right and mid left medulla. 2. Abnormal appearance of the distal intradural right vertebral artery which may reflect a high-grade stenosis or occlusion. This could be better assessed with CTA of the head and neck Above impression was communicated to Dr. Montaño on 07/01/2023 1:24 PM Head/Neck CTA 07/01/23 17:05 IMPRESSION: 1. No acute intracranial abnormality including hemorrhage, mass effect, hydrocephalus, or acute territorial edematous infarction. 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 2. 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 There is no evidence of perceptual disturbance. Patients insight and judgment appear intact. Medications Medications Current Medications Acetaminophen/Butalbital/Caffeine (Butalb/Acetamin/Caff 50/325/40 Tablet) 1 tab PO Q4H PRN PRN Reason: Headache Last Admin: 06/30/23 15:42 Dose: 1 tab Aspirin (Aspirin Enteric Coated 81 Mg Tablet.) 81 mg PO DAILY [facility] Last Admin: 07/02/23 08:04 Dose: 81 mg Atorvastatin Calcium (Atorvastatin Calcium 40 Mg Tablet) 40 mg PO BEDTIME [facility] Last Admin: 07/01/23 19:18 Dose: 40 mg Clopidogrel Bisulfate (Clopidogrel Bisulfate 75 Mg Tablet) 75 mg PO DAILY [facility] Last Admin: 07/02/23 08:04 Dose: 75 mg Enoxaparin Sodium (Enoxaparin Sodium 40 Mg/0.4 Ml Syringe) 40 mg SUBCUT Q24H [facility] Last Admin: 07/01/23 17:22 Dose: 40 mg Hydroxyzine HCl (Hydroxyzine Hcl 25 Mg Tablet) 25 mg PO Q6H PRN PRN Reason: anxiety/restlessness Last Admin: 07/02/23 10:28 Dose: 25 mg Ibuprofen (Ibuprofen 400 Mg Tablet) 400 mg PO Q6H PRN PRN Reason: Fever or Pain, Mild (Pain Scale 1-3) Last Admin: 06/30/23 10:22 Dose: 400 mg Lorazepam (Lorazepam 2 Mg/Ml Vial) 1 mg IVPUSH ONCE PRN PRN Reason: PRe-MRI Last Admin: 07/01/23 11:30 Dose: 1 mg Omeprazole (Omeprazole 40 Mg Capsule.Dr) 40 mg PO DAILY@0630 [facility] Last Admin: 07/02/23 06:22 Dose: 40 mg Ondansetron HCl (Ondansetron Hcl 4 Mg/2 Ml Vial) 4 mg IVPUSH Q8H PRN PRN Reason: Nausea and Vomiting Sodium Chloride (0.9 % Sodium Chloride Flush 3 Ml Syringe) 3 ml IVFLUSH QSHIFT [facility] Last Admin: 07/02/23 08:04 Dose: 3 ml Allergies Allergies Allergy/AdvReac Type Severity Reaction Status Date / Time Penicillins [PCN] Allergy Intermediate RASH Verified 06/29/23 10:46 feathers [FEATHERS] Allergy Mild CONGESTION Verified 06/29/23 10:46 acetaminophen [From PERCOCET] Allergy Unknown VOMITING Verified 06/29/23 10:46 amoxicillin Allergy Unknown Rash Verified 06/29/23 10:46 cephalexin [Keflex] Allergy Unknown Rash Verified 06/29/23 10:46 oxycodone [From PERCOCET] Allergy Unknown VOMITING Verified 06/29/23 10:46 penicillin G Allergy Unknown Rash Verified 06/29/23 10:46 Assessment & Plan Assessment & Plan (1) Adjustment disorder with anxiety: Status: Acute Code(s): F43.22 - Adjustment disorder with anxiety Plan Pt is a 63 yo female with no significant PMH who first presented to the hospital complaining of lower extremities weakness for last 2 days found with CVA (MRI showed bilateral medullary infarct CTA showed right verteberal artery occlusion). Psych consulted for recs regarding pts anxiety over dx. Impression: Patient denies any psychiatric history, depression or anxiety other than some brief depression when she was getting a divorce decades ago. No history at all of psychotropic medications; no history at all of SI. Patient says she is anxious in the hospital now, dealing with this new diagnosis but feels it is situational and does not want to start any psychotropic medications. She reports having extensive outpatient support and that she will reach out for help if she starts to feel anxious/depressed at some point in the future. Patient only asking for help dealing with anxiety when it comes up now, while she is in the hospital Plan: Recommend treating situational anxiety in the hospital with either low-dose Ativan or clonazepam No further follow-up needed consultation remains available for any further questions Total time managing care of this patient today ____ minutes. Patient educated on: diagnosis, medication risk/benefits and medical condition Informed Consent: understands
[2023-07-02 15:48] VITALS: BP 139/70; PULSE 54; RESP 16; TEMP 36.7; O2SAT 93
[2023-07-02] MEDS: Enoxaparin Sodium 40 MG/0.4 ML SYRINGE SUBCUT (16:59)
[2023-07-02 19:25] VITALS: BP 142/90; PULSE 81; RESP 16; TEMP 36.3; O2SAT 94
[2023-07-02] MEDS: Atorvastatin Calcium 40 MG TABLET PO (19:25)
[2023-07-02 23:59] VITALS: BP 149/81; PULSE 62; RESP 18; TEMP 36.8; O2SAT 95
[2023-07-03] MEDS: Ibuprofen 400 MG TABLET PO ×2 (00:37→23:26)
[2023-07-03 03:17] VITALS: BP 158/72; PULSE 59; RESP 18; TEMP 36.1; O2SAT 97
[2023-07-03] MEDS: Omeprazole 40 MG CAPSULE.DR PO (05:57)
--- NOTE | 2023-07-03 07:15 | PC.NURSE ---
Assumed care of patient at 23:15. VSS. SB-NSR on tele. On q4h neuros assessments; see these and shift assessments for full details. Given prn ibuprofen x1 for generalized pain +effect; pt denies further pain. Purewick in place patent of cyu. Safety measures in place. Handoff report given at 06:45.
[2023-07-03 07:46] VITALS: BP 157/84; PULSE 57; RESP 17; TEMP 36.2; O2SAT 95
[2023-07-03] MEDS: Aspirin Enteric Coated 81 MG TABLET.DR PO (09:02)
[2023-07-03] MEDS: 0.9 % Sodium Chloride Flush 3 ML SYRINGE IVFLUSH ×3 (09:02→20:03)
[2023-07-03] MEDS: Clopidogrel Bisulfate 75 MG TABLET PO (09:02)
--- NOTE | 2023-07-03 09:28 | P.PNIM_ITS ---
Subjective Subjective Date of Service: 07/03/23 Interval History: Seen and evaluated this morning weakness still significant and mildly better, not worsening MRI showed bilateral medullary infarct CTA showed right verteberal artery occlusion tolerating diet Physical Exam 2 Vital Signs: Vital Signs: Last Vital Signs Temp 97.1 F 07/03/23 07:46 Pulse 57 07/03/23 07:46 Resp 17 07/03/23 07:46 BP 157/84 H 07/03/23 07:46 Pulse Ox 95 07/03/23 07:46 O2 Del Method Room Air 07/03/23 07:46 BMI result Body Mass Index 36.7 Const: Other: Constitutional : Awake, interactive, not in distress Neck : Normal inspection, Supple Cardiovascular : RRR, no JVP, no lower extremity edema Respiratory : good bilateral air entry, no crackles, wheezes or rhonchi Gastrointestinal: soft, lax, Normal bowel sounds, Non tender Skin : Warm, Dry Neurological : Alert & oriented x3, normal speech, CN 2-12 within normal, mild weakness upper extremities, Lower ex weakness 3+/5 bilaterally. Brisk DTR Objective Data Active Medications Acetaminophen/Butalbital/Caffeine (Butalb/Acetamin/Caff 50/325/40 Tablet) 1 tab PO Q4H PRN PRN Reason: Headache Last Admin: 06/30/23 15:42 Dose: 1 tab Documented By: JIM Aspirin (Aspirin Enteric Coated 81 Mg Tablet.) 81 mg PO DAILY [facility] Last Admin: 07/03/23 09:02 Dose: 81 mg Documented By: TREY Atorvastatin Calcium (Atorvastatin Calcium 40 Mg Tablet) 40 mg PO BEDTIME [facility] Last Admin: 07/02/23 19:25 Dose: 40 mg Documented By: AIYANA Clonazepam (Clonazepam 0.125 Mg Tab.Rapdis) 0.25 mg PO TID PRN PRN Reason: anxiety/restlessness Clopidogrel Bisulfate (Clopidogrel Bisulfate 75 Mg Tablet) 75 mg PO DAILY [facility] Last Admin: 07/03/23 09:02 Dose: 75 mg Documented By: TREY Enoxaparin Sodium (Enoxaparin Sodium 40 Mg/0.4 Ml Syringe) 40 mg SUBCUT Q24H [facility] Last Admin: 07/02/23 16:59 Dose: 40 mg Documented By: HERSON Hydroxyzine HCl (Hydroxyzine Hcl 25 Mg Tablet) 25 mg PO Q6H PRN PRN Reason: anxiety/restlessness Last Admin: 07/02/23 10:28 Dose: 25 mg Documented By: IRAM Ibuprofen (Ibuprofen 400 Mg Tablet) 400 mg PO Q6H PRN PRN Reason: Fever or Pain, Mild (Pain Scale 1-3) Last Admin: 07/03/23 00:37 Dose: 400 mg Documented By: TALA Omeprazole (Omeprazole 40 Mg Capsule.Dr) 40 mg PO DAILY@0630 [facility] Last Admin: 07/03/23 05:57 Dose: 40 mg Documented By: TALA Ondansetron HCl (Ondansetron Hcl 4 Mg/2 Ml Vial) 4 mg IVPUSH Q8H PRN PRN Reason: Nausea and Vomiting Sodium Chloride (0.9 % Sodium Chloride Flush 3 Ml Syringe) 3 ml IVFLUSH QSHIFT [facility] Last Admin: 07/03/23 09:02 Dose: 3 ml Documented By: TREY Labs 07/01/23 05:24 07/01/23 05:24 Labs: Laboratory Results - last 24 hr 06/29/23 07/02/23 16:31 06:49 Total Bilirubin 0.7 Direct Bilirubin 0.2 AST 12 ALT 17 Alkaline Phosphatase 101 Total Protein 7.0 Albumin 4.1 CSF C.neoform/gat PCR Not Detected CSF CMV DNA (PCR) Not Detected CSF Enterovirus (PCR) Not Detected CSF E. coli K1 (PCR) Not Detected CSF H. influenzae (PCR) Not Detected CSF HSV I (PCR) Not Detected CSF HSV II (PCR) Not Detected CSF HHV 6 (PCR) Not Detected CSF L.monocytogenes PCR Not Detected CSF N. meningitidis PCR Not Detected CSF Parechovirus (PCR) Not Detected CSF S. agalactiae (PCR) Not Detected CSF S. pneumoniae (PCR) Not Detected CSF VZV (PCR) Not Detected Microbiology Microbiology Results: Microbiology 06/29/23 16:31 Gram Stain - Final Cerebrospinal Fluid CSF Examination - Final Fluid Description - Final CSF Culture - Final No growth after 3 days. Assessment and Plan (1) Adjustment disorder with anxiety: Status: Acute (2) Acquired stricture of ureter: Status: Acute (3) Anxiety: Status: Acute (4) Infarction of medulla oblongata: Status: Acute (5) Hydronephrosis: Status: Acute Plan A 62 years old lady with no significant PMH who presents to the hospital complaining of lower extremities weakness for last 2 days. Upper and lower extremities weakness 2/2 Bilateral Medullary stroke Head CT, MR Lumbar spine, MR Cervical spine: no definite abnormality or enhancement MRI Brain showed bilateral medullary infarct CTA showing distal right vertebral artery occlusion CSF pending MS, Lyme and infx Panel Finished 3 days of pulse steroid therapy Neurology following, Start ASA, Plavix for 3 months and Atorvastatin PT\OT rec Acute rehab placement Neurochecks Q4 Left sided hydronephrosis noted on MRI US showing normal size kidney with severe hydronephrosis and possible distal stone CT showingn Chronic left hydroureteronephrosis with dilated ureter extending to the mid segment likely from stricture. No radiopaque calculi seen. urology evaluation, non surgical at this point Anxiety Increased levels psychiatry input appreciated, use Clozepam prn while inpatient Atarax PRN DVT PPx Lovenox The patient will need overnight hospital stay PT\OT, clinical improvement and pending CSF results Quality Stroke Does the patient have a stroke diagnosis?: No VTE Prior VTE?: No VTE Risk Level:: Medical - moderate - high VTE Device Contraindication: Treatment Not Indicated VTE Drug Contraindication: N/A - Med Ordered
[2023-07-03 11:16] VITALS: PULSE 67; O2SAT 94
--- NOTE | 2023-07-03 11:33 | MHC.CM.PN ---
EMR reviewed. Per MD rounds patient is not medically cleared for dc at this time, awaiting neurology. Updates sent to AR's. Awaiting response. CM will continue to follow.
[2023-07-03 15:28] VITALS: BP 149/84; PULSE 65; RESP 18; TEMP 36.6; O2SAT 94
[2023-07-03] MEDS: Enoxaparin Sodium 40 MG/0.4 ML SYRINGE SUBCUT (17:29)
[2023-07-03 19:14] VITALS: BP 146/76; PULSE 73; RESP 18; TEMP 36.9; O2SAT 94
[2023-07-03] MEDS: Atorvastatin Calcium 40 MG TABLET PO (20:02)
[2023-07-03] MEDS: hydrOXYzine HCL 25 MG TABLET PO (23:26)
[2023-07-04 03:19] VITALS: BP 135/73; PULSE 68; RESP 18; TEMP 36.4; O2SAT 95
[2023-07-04] MEDS: Omeprazole 40 MG CAPSULE.DR PO (05:33)
--- NOTE | 2023-07-04 07:00 | CA_ITS ---
Transthoracic Echocardiogram Patient (Last, First, Middle): Geovanna Kerns M Gender: Female Date of : 1960 Age: 63 Procedure Date: 07/04/2023 Procedure Type: Transthoracic Echocardiogram Location: S3E Height: 157.48 cm Weight: 90.72 kg BSA: 1.91 m2 Heart Rate: 76 bpm BP: 158 / 72 mmHg Senior Planning Analyst: SB Referring MD: Akin Montaño MD Public Health Advisor: Bob Narayan MD Symptoms: Stroke, for eval Study Quality: Adequate w contrast ECG Rhythm: Sinus Conclusions: - 1. Normal LV ejection fraction of 60 65% with impaired relaxation filling pattern 2. Fibrocalcific aortic valve changes noted with normal valvular Dopplers 3. Normal RV systolic pressure 4. No gross pericardial effusion Findings Procedure Information The quality of the study was technically difficult. The study quality is limited by patients body habitus and limitations of a portable exam. Left Ventricle Normal left ventricular size, thickness, and systolic function. The visually estimated ejection fraction is between 60-65%. Spectral Doppler is indicative of an impaired relaxation filling pattern. E/E prime ratio is between 8 and 15 consistent with indeterminate filling pressures. Right Ventricle Normal right ventricular cavity size and systolic function. Atria The left atrium is normal in size. There is no evidence of interatrial shunt by agitated saline. negative bubble. Aortic Valve There is mild calcification of the aortic valve. There is no aortic valve stenosis. There is no aortic valve regurgitation. Mitral Valve There is mild anterior and posterior mitral leaflet thickening. There is trace mitral valve regurgitation. There is no mitral valve stenosis. Pulmonic Valve The pulmonic valve was not well visualized. Tricuspid Valve Likely normal tricuspid valve structure and function. There is trace tricuspid valve regurgitation. The right ventricular systolic pressure is normal. The right ventricular systolic pressure is 24 mmHg. Normal right atrial pressure. There is no evidence of pulmonary hypertension. Great Vessels The pulmonary artery was not well visualized. Small plaque is seen in the sino tubular ridge. Venous The inferior vena cava is normal in size and collapses greater than 50% with inspiration. Pericardium/Pleural There is no evidence of pericardial effusion. Prior Study Comparison No prior study available for comparison. Measurements 2D Linear Measurements IVSd: 0.65 0.6-0.9/0.6-1.0 cm LVIDd: 4.98 3.9-5.3/4.2-5.9 cm LVIDd Index: 2.61 2.4-3.2/2.2-3.1 cm/m2 LVIDs: 3.14 2.0-3.6 cm LVPWd: 1.02 0.7-1.1 cm LA Diam: 3.00 2.7-3.8/3.0-4.0 cm LAIDs Index: 1.57 1.5-2.3 cm/m2 LV Mass: 176.71 67-162/88-224 g LV Mass Index: 92.52 43-95/49-115 g/m2 LVOT Diam: 2.00 3.0+(-)1.3 cm 2D Systolic Function EF 4C: 62.20 >55% EF 2C: 59.80 >55% EF BiP: 60.00 >55% Mitral Valve MV Pk E: 0.57 MV PK A: 0.81 MV Decel Time: 243.00 E/A: 0.70 E'Lateral: 2.61 E'Medial: 3.26 E/E' Med: 17.60 E/E' Lat: 22.00 PHT: 71.00 MVA PHT: 3.10 Decel Adams: 2.36 Aortic Valve AoV Pk Brian: 1.57 AoV Pk Grad: 10.00 GOMEZ: 2.02 LVOT LVOT Pk Brian: 1.01 LVOT Mn Brian: 0.60 LVOT VTI: 0.17 LVOT Pk Grad: 4.00 LVOT Mn Grad: 2.00 LVOT Diam: 2.00 LVOT Area: 3.14 Diastolic Function MV Pk E: 0.57 MV Pk A: 0.81 E/A: 0.70 E'Medial: 3.26 E/E' Med: 17.60 E' Laterial: 2.61 E/E' Lat: 22.00 Right Ventricle TVS' Brian: 12.80 Tricuspid Valve TR Pk Brian: 2.27 TR Pk Grad: 21.00 RA Press: 3.00 RVSP: 24.00 Great Vessels Aorta Sinus of Valsalva: 2.50 2.0-3.5 cm Ao Asc: 3.10 2.1-3.4 cm Pulmonary Veins Pulm Vein S/D 2.00 Pulmonary Valve PV Pk Brian: 1.06 Peak PV Grad: 4.00 Updated in Other Vendor System with Status of Final Bob Narayan MD electronically signed on 07/04/2023 12:01:14 PM with status of Final
[2023-07-04 07:20] VITALS: BP 163/106; PULSE 73; RESP 18; TEMP 36.4; O2SAT 97
[2023-07-04] MEDS: 0.9 % Sodium Chloride Flush 3 ML SYRINGE IVFLUSH (08:09)
[2023-07-04] MEDS: Aspirin Enteric Coated 81 MG TABLET.DR PO (08:09)
[2023-07-04] MEDS: Clopidogrel Bisulfate 75 MG TABLET PO (08:09)
[2023-07-04 09:14] VITALS: PULSE 73; O2SAT 97
--- NOTE | 2023-07-04 10:41 | HO.PM.IMPN ---
Subjective Subjective Date of Service: 07/04/23 Interval History: Seen and evaluated this morning weakness still significant and mildly better, not worsening waiting Echo result and CSF markers tolerating diet Review of Systems Review of Systems: Yes all other systems are reviewed and are negative Physical Exam Vital Signs: Vital Signs: Last Vital Signs Temp 97.5 F 07/04/23 07:20 Pulse 73 07/04/23 09:14 Resp 18 07/04/23 07:20 BP 163/106 H 07/04/23 07:20 Pulse Ox 97 07/04/23 09:14 O2 Del Method Room Air 07/04/23 07:20 BMI result Body Mass Index 36.7 Const: Other: Constitutional : Awake, interactive, not in distress Neck : Normal inspection, Supple Cardiovascular : RRR, no JVP, no lower extremity edema Respiratory : good bilateral air entry, no crackles, wheezes or rhonchi Gastrointestinal: soft, lax, Normal bowel sounds, Non tender Skin : Warm, Dry Neurological : Alert & oriented x3, normal speech, CN 2-12 within normal, mild weakness upper extremities, Lower ex weakness 3+/5 bilaterally. Brisk DTR Objective Data Active Medications Acetaminophen/Butalbital/Caffeine (Butalb/Acetamin/Caff 50/325/40 Tablet) 1 tab PO Q4H PRN PRN Reason: Headache Last Admin: 06/30/23 15:42 Dose: 1 tab Documented By: JIM Aspirin (Aspirin Enteric Coated 81 Mg Tablet.) 81 mg PO DAILY [facility] Last Admin: 07/04/23 08:09 Dose: 81 mg Documented By: TREY Atorvastatin Calcium (Atorvastatin Calcium 40 Mg Tablet) 40 mg PO BEDTIME [facility] Last Admin: 07/03/23 20:02 Dose: 40 mg Documented By: AIYANA Clonazepam (Clonazepam 0.125 Mg Tab.Rapdis) 0.25 mg PO TID PRN PRN Reason: anxiety/restlessness Last Admin: 07/04/23 08:09 Dose: 0.25 mg Documented By: TREY Clopidogrel Bisulfate (Clopidogrel Bisulfate 75 Mg Tablet) 75 mg PO DAILY [facility] Last Admin: 07/04/23 08:09 Dose: 75 mg Documented By: TREY Enoxaparin Sodium (Enoxaparin Sodium 40 Mg/0.4 Ml Syringe) 40 mg SUBCUT Q24H [facility] Last Admin: 07/03/23 17:29 Dose: 40 mg Documented By: TREY Hydroxyzine HCl (Hydroxyzine Hcl 25 Mg Tablet) 25 mg PO Q6H PRN PRN Reason: anxiety/restlessness Last Admin: 07/03/23 23:26 Dose: 25 mg Documented By: AIYANA Ibuprofen (Ibuprofen 400 Mg Tablet) 400 mg PO Q6H PRN PRN Reason: Fever or Pain, Mild (Pain Scale 1-3) Last Admin: 07/03/23 23:26 Dose: 400 mg Documented By: AIYANA Omeprazole (Omeprazole 40 Mg Capsule.Dr) 40 mg PO DAILY@0630 [facility] Last Admin: 07/04/23 05:33 Dose: 40 mg Documented By: AIYANA Ondansetron HCl (Ondansetron Hcl 4 Mg/2 Ml Vial) 4 mg IVPUSH Q8H PRN PRN Reason: Nausea and Vomiting Sodium Chloride (0.9 % Sodium Chloride Flush 3 Ml Syringe) 3 ml IVFLUSH QSHIFT [facility] Last Admin: 07/04/23 08:09 Dose: 3 ml Documented By: TREY Labs 07/01/23 05:24 07/01/23 05:24 Microbiology Microbiology Results: Microbiology 06/29/23 16:31 Gram Stain - Final Cerebrospinal Fluid CSF Examination - Final Fluid Description - Final CSF Culture - Final No growth after 3 days. Assessment and Plan (1) Adjustment disorder with anxiety: Status: Acute (2) Infarction of medulla oblongata: Status: Acute (3) Muscle weakness of all 4 extremities: Status: Acute Plan A 62 years old lady with no significant PMH who presents to the hospital complaining of lower extremities weakness for last 2 days. Upper and lower extremities weakness 2/2 Bilateral Medullary stroke Head CT, MR Lumbar spine, MR Cervical spine: no definite abnormality or enhancement CSF analysis showed Elevated Protein 79 and high WBCs of 16 Finished 3 days of pulse steroid therapy for presumption of GB\Myelitis on admission MRI Brain showed acute bilateral medullary infarct CTA showing distal right vertebral artery occlusion CSF pending MS, Lyme and Negative Infx Panel Neurology following, waiting Echo and Panel for now Continue ASA, Plavix for 3 months and Atorvastatin PT\OT rec Acute rehab placement, continue while inpatient Neurochecks Q4 Left sided hydronephrosis noted on MRI US showing normal size kidney with severe hydronephrosis and possible distal stone CT showingn Chronic left hydroureteronephrosis with dilated ureter extending to the mid segment likely from stricture. No radiopaque calculi seen. urology evaluation, non surgical at this point, OP follow up Anxiety Increased levels psychiatry input appreciated, use Clozepam prn while inpatient Atarax PRN DVT PPx Lovenox The patient will need overnight hospital stay PT\OT, clinical improvement and pending CSF panel results Quality Stroke Does the patient have a stroke diagnosis?: No VTE Prior VTE?: No VTE Risk Level:: Medical - moderate - high VTE Device Contraindication: Treatment Not Indicated VTE Drug Contraindication: N/A - Med Ordered
[2023-07-04] MEDS: Ibuprofen 400 MG TABLET PO (12:42)
--- NOTE | 2023-07-04 12:56 | PM.NEUROPN ---
Subjective Subjective Date of Service: 07/04/23 Interval History: Seen and evaluated this morning Still has very significant diffuse weakness , not worsening Echo result and CSF MS markers are pending Critical Care Time (minutes): 0 Physical Exam Vital Signs: Vital Signs: Last Vital Signs Temp 97.5 F 07/04/23 07:20 Pulse 73 07/04/23 09:14 Resp 18 07/04/23 07:20 BP 163/106 H 07/04/23 07:20 Pulse Ox 97 07/04/23 09:14 O2 Del Method Room Air 07/04/23 07:20 BMI result Body Mass Index 36.7 Const: Other: Constitutional : Awake, interactive, not in distress Neck : Normal inspection, Supple Cardiovascular : RRR, no JVP, no lower extremity edema Respiratory : good bilateral air entry, no crackles, wheezes or rhonchi Gastrointestinal: soft, lax, Normal bowel sounds, Non tender Skin : Warm, Dry Neurological : Alert & oriented x3, normal speech, CN 2-12 within normal, mild weakness upper extremities, Lower ex weakness 3+/5 bilaterally. Brisk DTR General: cooperative, healthy appearing, comfortable and no acute distress Orientation/consciousness: patient oriented x3 HEENT: Head: Yes normal to inspection, Yes normocephalic and Yes atraumatic Face and sinus: Yes normal facial exam Mouth: moist mucous membranes Eyes: Conjunctivae: conjunctivae normal Neck: Neck: Yes normal visual inspection, Yes full ROM and Yes trachea midline Chest: Chest palpation & inspection: normal inspection of the chest Resp: Effort & Inspection: normal respiratory effort, able to speak in complete sentences and no respiratory distress Cardio: Rate: regular rate GI: Inspection: Yes normal to inspection Palpation (GI): Soft to palpation : General: No no CVA tenderness Back/Spine/Pelvis: Back: No no CVA tenderness Cervical Spine: normal cervical lordosis Thoracic/Lumbar Spine: thoracic and lumbar spine normal to inspection Skin: General skin exam: no rashes or lesions noted Neuro: Other: She's alert and oriented with normal intellectual functions. Cranial nerves II through: Normal. Tongue protrudes in the midline. Speech and swallowing normal. She has minimal weakness of neck flexion. She has Moderate weakness in the upper extremities. In the triceps and deltoids at 4-/5. weakness in the right product development scientist>left. Lower extremity proximal strength is 2-3/5 distal strength is 4/5. Reflexes are 3+ knees, 2+ ankles and plantar responses are extensor Bilaterally. There are no sensory deficits. Gait was not tested. General: patient oriented x3, tone normal and moves all extremities Extrem: General: Yes normal to inspection, Yes capillary refill normal and No edema Psych: Appearance: grossly normal Objective Data Labs 07/01/23 05:24 07/01/23 05:24 Microbiology Microbiology Results: Microbiology 06/29/23 16:31 Cerebrospinal Fluid Gram Stain - Final 06/29/23 16:31 Cerebrospinal Fluid CSF Examination - Final 06/29/23 16:31 Cerebrospinal Fluid Fluid Description - Final 06/29/23 16:31 Cerebrospinal Fluid CSF Culture - Final No growth after 3 days. Progress Note: A&P Assessment and plan (1) Infarction of medulla oblongata: Status: Acute Assessment and Plan: Acute bilateral medullary stroke involving the pyramids with bilateral limb weakness. No dysphagia, from right veretbral occlusion with wid eopen left veretbral and basilar arteries. Hyperlipidemia. Echo results pending Unexplainesd elevated CSF proteins and 16 lymphocytes. MS markers pending. Can be transferred to Rehab on Atorvastatin 80mg and dual platelet therapy. (2) Adjustment disorder with anxiety: Status: Acute (3) Muscle weakness of all 4 extremities: Status: Acute Plan A 62 years old lady with no significant PMH who presents to the hospital complaining of lower extremities weakness for last 2 days. Upper and lower extremities weakness 2/2 Bilateral Medullary stroke Head CT, MR Lumbar spine, MR Cervical spine: no definite abnormality or enhancement CSF analysis showed Elevated Protein 79 and high WBCs of 16 Finished 3 days of pulse steroid therapy for presumption of GB\Myelitis on admission MRI Brain showed acute bilateral medullary infarct CTA showing distal right vertebral artery occlusion CSF pending MS, Lyme and Negative Infx Panel Neurology following, waiting Echo and Panel for now Continue ASA, Plavix for 3 months and Atorvastatin PT\OT rec Acute rehab placement, continue while inpatient Neurochecks Q4 Left sided hydronephrosis noted on MRI US showing normal size kidney with severe hydronephrosis and possible distal stone CT showingn Chronic left hydroureteronephrosis with dilated ureter extending to the mid segment likely from stricture. No radiopaque calculi seen. urology evaluation, non surgical at this point, OP follow up Anxiety Increased levels psychiatry input appreciated, use Clozepam prn while inpatient Atarax PRN DVT PPx Lovenox The patient will need overnight hospital stay PT\OT, clinical improvement and pending CSF panel results Time Spent With Patient Time: Total time managing care of this patient today ____ minutes. Procedures Date of Service Date of Service: 07/04/23 Quality Stroke Does the patient have a stroke diagnosis?: No VTE Prior VTE?: No VTE Risk Level:: Medical - moderate - high VTE Device Contraindication: Treatment Not Indicated VTE Drug Contraindication: N/A - Med Ordered
[2023-07-04 15:51] VITALS: BP 147/69; PULSE 76; RESP 18; TEMP 36.6; O2SAT 96
--- NOTE | 2023-07-04 16:23 | PM.DS ---
DS: Providers Provider Date of Service: 07/04/23 Date of admission: 06/29/23 17:45 Primary care physician: None Physician Consults: 06/29/23 18:14 Consult to Neurology Routine Consulting Provider: [facility] Reason for consultation: Lower extremities weakness 06/29/23 18:16 Consult to Urology Routine Consulting Provider: Alon Yoo Reason for consultation: Left sided hydronephrosis 07/01/23 10:13 Consult to Psychiatry Routine Consulting Provider: Psych Covering Reason for consultation: Anxiety, mood changes related to acute medical illness. DS: Diagnosis Discharge Diagnosis (1) Infarction of medulla oblongata: Status: Acute (2) Adjustment disorder with anxiety: Status: Acute (3) Muscle weakness of all 4 extremities: Status: Acute (4) Acquired stricture of ureter: Status: Acute (5) Urinary incontinence: Status: Acute (6) Hydronephrosis: Status: Acute (7) Abnormal finding in CSF: Status: Acute DS: Summary Hospital Course Hospital Course: Admission note HPI A 62 years old lady with no significant PMH who presents to the hospital complaining of lower extremities weakness for last 2 days. The patient reports some heavy lefting recently which she was able to manage but for the last 2 days she noticed worsening weakness in her legs, difficulties standing up and walking, feels unsteady. she also felt her arms are getting weaker. she lost control of her bladder but have normal bowel habit. reporting also mild headache today. No chest pain, palpitations, loss sensation, vision changes, SOB, nausea, vomiting, diarrhea or urinary symptoms. In ED she was evaluated by MR spine and CSF analysis along with neurologist evaluation who recommended starting pulse steroids for 3 days. Admitted for treatment and further work up. Hospital course # Upper and lower extremities weakness secondary to Bilateral Medullary stroke. Head CT, MR Lumbar spine, MR Cervical spine: no definite abnormality or enhancement. CSF analysis showed Elevated Protein 79 and high WBCs of 16 raising concern of Myelopathy and she finished 3 days of pulse steroid therapy for presumption of GB\Myelitis until the MRI Brain showed acute bilateral medullary infarct with CTA showing distal right vertebral artery occlusion. CSF pending MS, Lyme along other immunological markers. to be followed by dr Swain. Negative Infx Panel. Echo within normal. Neurology recommended ASA, Plavix for 3 months and 80 mg Atorvastatin with a plan to follow up as outpatient. PT\OT rec Acute rehab placement. # Left sided hydronephrosis noted incidentally on MRI. CT showingn Chronic left hydroureteronephrosis with dilated ureter extending to the mid segment likely from stricture. No radiopaque calculi seen. urology team evaluation recommended non surgical at this point, OP follow up # Anxiety Increased during hospital. evaluated by psychiatry team who recommended use Clozepam prn while inpatient. to be discharged on Atarax PRN. Start Plavix for 3 months Aspirin daily Atorvastatin 80 mg bedtime Atarax as needed for Anxiety To follow with dr Whittaker as outpatient for left kidney follow up Follow with Neurologist dr Swain as outpatient for laboratory results and treatment plan Time Attestation Discharge Coordination Time (in mins): 38 Quality: Safe Use of Opioids Does Pt have an Active Cancer Diagnosis on the Problem List?: No Quality: Stroke Does the patient have a stroke diagnosis?: Yes Reason for No Anti-thrombotic at DC: N/A - Med Ordered Reason for No Anticoagulant at DC: Not indicated Reason Not Initiating IV-Tpa: Not indicated Reason for No Anti-thrombotic by Day Two: N/A - Med Ordered Reason for No Statin at DC: N/A - Med Ordered Physical Exam Vital Signs: Vital Signs: Last Vital Signs Temp 97.8 F 07/04/23 15:51 Pulse 76 07/04/23 15:51 Resp 18 07/04/23 15:51 BP 147/69 H 07/04/23 15:51 Pulse Ox 96 07/04/23 15:51 O2 Del Method Room Air 07/04/23 15:51 BMI result Body Mass Index 36.7 Const: Other: Constitutional : Awake, interactive, not in distress Neck : Normal inspection, Supple Cardiovascular : RRR, no JVP, no lower extremity edema Respiratory : good bilateral air entry, no crackles, wheezes or rhonchi Gastrointestinal: soft, lax, Normal bowel sounds, Non tender Skin : Warm, Dry Neurological : Alert & oriented x3, normal speech, CN 2-12 within normal, mild weakness upper extremities, Lower ex weakness 3+/5 bilaterally. Brisk DTR DS: Data Imaging MRI - head: Radiologist's impression: ITS Impressions Head CT 06/29/23 09:23 IMPRESSION: No acute intracranial pathology. Lumbar Spine MRI 06/29/23 12:54 IMPRESSION: 1. At L3-L4 there is facet arthropathy and there is a central and left-sided disc protrusion. There is narrowing of the left subarticular recess with impingement on the traversing left L4 nerve root. There is a left foraminal disc protrusion extending far laterally with impingement on the exiting and extraforaminal segments of the left L3 nerve root. There is moderate central stenosis. 2. At L4-L5 there is facet arthropathy and there is a posterior disc protrusion. There is narrowing of the bilateral subarticular recesses and there is mild central stenosis. There is a left foraminal disc protrusion impinging on the exiting left L4 nerve root. 3. At L5-S1 there is a left-sided disc protrusion/extrusion extending into the left subarticular recess with impingement on the traversing left S1 nerve root. There is also a left foraminal disc protrusion impinging on the exiting left L5 nerve root. There is no central stenosis. 4. On the current study there is now severe left hydronephrosis with marked atrophy of the renal parenchyma. The proximal left ureter is dilated down to the level of the pelvic inlet. This could be further evaluated clinically and with ultrasound, and consider isotope renal scan to assess renal function and level of obstruction. Renal Ultrasound 06/29/23 19:12 IMPRESSION: Severe left-sided hydronephrosis with possible 7 mm distal left ureteral stone. CT scan would be useful for further evaluation. Abdomen/Pelvis CT 06/30/23 11:50 IMPRESSION: 1. Chronic left hydroureteronephrosis with dilated ureter extending to the mid segment likely from stricture. No radiopaque calculi seen. 2. The right kidney is normal. 3. Cholelithiasis without wall thickening. 4. There is fluid distended and elongated appendix question loculated fluid versus mucocele. Correlate with ultrasound and surgical consultation. Fleischner guidelines were followed. Cervical Spine MRI 06/30/23 20:15 IMPRESSION: Within the constraint of motion degradation, no definite cord signal abnormality or abnormal intramedullary enhancement. No high-grade spinal canal stenosis. Moderate to severe left-sided neural foraminal stenosis at C5-C6 and C6-C7. Brain MRI 07/01/23 12:40 IMPRESSION: 1. Acute infarcts involving the ventral upper right and mid left medulla. 2. Abnormal appearance of the distal intradural right vertebral artery which may reflect a high-grade stenosis or occlusion. This could be better assessed with CTA of the head and neck Above impression was communicated to Dr. Montaño on 07/01/2023 1:24 PM Head/Neck CTA 07/01/23 17:05 IMPRESSION: 1. No acute intracranial abnormality including hemorrhage, mass effect, hydrocephalus, or acute territorial edematous infarction. 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 2. 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 Discharge Plan Discharge Anticipated Discharge Date/Time: 07/04/23 16:11 Patient Disposition: er [facility] Discharge Diagnosis: Acute medullary infarction Referrals: Physician,None [Primary Care Provider] - 1 Week Discharge Medications: New atorvastatin 80 mg Tablet 80 mg PO BEDTIME Qty: 90 0RF clopidogrel 75 mg Tablet 75 mg PO DAILY Qty: 90 0RF aspirin 81 mg Tablet,Delayed Release (Dr/Ec) 81 mg PO DAILY Qty: 90 0RF omeprazole 40 mg Capsule,Delayed Release(Dr/Ec) 40 mg PO DAILY@0630 Qty: 90 0RF hydroxyzine HCl 25 mg Tablet 25 mg PO Q6H PRN (Reason: Anxiety/Restlessness) Qty: 20 0RF Continued [facility] 750 mg-100 mg- 1.65 mg-108 mg Tablet 1 tab PO DAILY Discharge Orders: Discharge Order (Routine); Ordered 07/04/23 Ordered By: Akin Montaño Diet: Advance to usual diet Activity on Discharge: As tolerated Stand Alone Forms: Patient Portal Discharge page Care Plan Goals: Read below Health Concerns: Read below Plan of Treatment: Read below Assessment: You were admitted to the hospital for evaluation of weakness in your extremities. Brain images and fluids analysis showed an evidence of acute stroke with occluded right vertebral artery. You were evaluated by neurologist who recommended Aspirin, Plavix and cholestrol management. Physical therapy recommended short term rehab. Start Plavix for 3 months Aspirin daily Atorvastatin 80 mg bedtime Atarax as needed for Anxiety To follow with dr Whittaker as outpatient for left kidney follow up Follow with Neurologist dr Swain as outpatient for laboratory results and treatment plan
[2023-07-04 21:50] LABS: Lyme IgG CSF Immunoblot NO BANDS DETECTED; Lyme IgM CSF Immunoblot NO BANDS DETECTED
[2023-07-05 22:59] LABS: Protein C Activity >200 % normal (70-180); Protein S Activity rflx Tot&Fr 83 % normal (60-140)
[2023-07-06 00:18] LABS: Anti-Thrombin III Antigen 117 % normal (80-120)
[2023-07-06 05:38] LABS: Oligoclonal Banding Absent (Absent)
[2023-07-06 07:25] LABS: Cardiolipin IgG Ab <2.0 GPL-U/mL; Cardiolipin IgM Ab <2.0 MPL-U/mL
[2023-07-06 17:48] LABS: Myelin Basic Protein <2.0 mcg/L (<=4.0)
[2023-07-07 22:53] LABS: PTT (LAC) Screen 27 sec (<=40)
[2023-07-09 03:48] LABS: Prothrombin 20210A NEGATIVE
[2023-07-10 16:25] LABS: Factor V Leiden NEGATIVE
== END 2023-07-04 19:02 | disposition skilled nursing facility (03) | DRG 45 ==
LOC: HO.ED 15:55 → HO.EDOVER 17:59 → HO.S3 06-30 07:19
PROVIDERS: Physician Assistant; Admitting Provider Student in an Organized Health Care Education/Training Program; Emergency Provider Emergency Medicine; Visit Provider Student in an Organized Health Care Education/Training Program
DX: I63.9 Cerebral infarction, unspecified (principal); G95.9 Disease of spinal cord, unspecified; F43.22 Adjustment disorder with anxiety; N13.1 Hydronephrosis with ureteral stricture, not elsewhere classified; I65.01 Occlusion and stenosis of right vertebral artery; E66.9 Obesity, unspecified; E78.5 Hyperlipidemia, unspecified; Z68.36 Body mass index [BMI] 36.0-36.9, adult
CPT/HCPCS: 36415; 70450; 70496; 70498; 70553; 72148; 72156; 74176; 76775; 80048; 80053; 80061; 80076; 81001; 81240; 81241; 82550; 83090; 83735; 83873; 83916; 84157; 84484; 85025; 85027; 85301; 85302; 85303; 85306; 85597; 85598; 85610; 85613; 85652; 85730; 86140; 86147; 86335; 86617; 87015; 87070; 87205; 87483; 89051; 93005; 93306; 97110; 97112; 97163; 97167; 97530; 99285; A9585; J1650; J1885; J2060; J2930; Q9957; Q9967

== ENCOUNTER → 2023-06-29 08:12 | Outpatient (BNV) | payer OTHER, SELFPAY | PROVIDERS: Emergency Provider Emergency Medicine; Visit Provider Psychiatry & Neurology Neurology | DX: I63.211 Cerebral infarction due to unspecified occlusion or stenosis of right vertebral artery (principal); F43.22 Adjustment disorder with anxiety; M62.81 Muscle weakness (generalized) | CPT/HCPCS: 99223; 99231; 99232 ==

== ENCOUNTER → 2023-06-29 08:20 | Outpatient (BNV) | payer OTHER, SELFPAY | PROVIDERS: Admitting Provider Student in an Organized Health Care Education/Training Program; Emergency Provider Emergency Medicine; Visit Provider Internal Medicine Cardiovascular Disease | DX: R53.1 Weakness (principal) | CPT/HCPCS: 93010 ==

== ENCOUNTER 2023-06-29 17:45 | Outpatient (BNV) | payer OTHER, SELFPAY | END 2023-07-04 07:00 | PROVIDERS: Admitting Provider Student in an Organized Health Care Education/Training Program; Emergency Provider Emergency Medicine; Visit Provider Internal Medicine Cardiovascular Disease | DX: I35.8 Other nonrheumatic aortic valve disorders (principal) | CPT/HCPCS: 93306 ==

== ENCOUNTER → 2023-06-29 17:45 | Outpatient (BNV) | payer OTHER, SELFPAY | PROVIDERS: Admitting Provider Student in an Organized Health Care Education/Training Program; Emergency Provider Emergency Medicine; Visit Provider Psychiatry & Neurology Psychiatry | DX: F43.22 Adjustment disorder with anxiety (principal) | CPT/HCPCS: 99222 ==

== ENCOUNTER → 2023-06-29 17:45 | Outpatient (BNV) | payer OTHER, SELFPAY | PROVIDERS: Admitting Provider Student in an Organized Health Care Education/Training Program; Emergency Provider Emergency Medicine; Visit Provider Student in an Organized Health Care Education/Training Program | DX: I63.211 Cerebral infarction due to unspecified occlusion or stenosis of right vertebral artery (principal); N13.1 Hydronephrosis with ureteral stricture, not elsewhere classified; F43.22 Adjustment disorder with anxiety; M62.81 Muscle weakness (generalized); R32 Unspecified urinary incontinence; R83.9 Unspecified abnormal finding in cerebrospinal fluid | CPT/HCPCS: 99223; 99232; 99233; 99239 ==

== ENCOUNTER → 2023-06-29 17:45 | Outpatient (BNV) | payer OTHER, SELFPAY | PROVIDERS: Admitting Provider Student in an Organized Health Care Education/Training Program; Emergency Provider Emergency Medicine; Visit Provider Urology | DX: N13.5 Crossing vessel and stricture of ureter without hydronephrosis (principal) | CPT/HCPCS: 99221; 99231 ==

== ENCOUNTER 2023-12-04 15:34 | Inpatient (IN) | payer OTHER, SELFPAY ==
--- NOTE | ~2023-12-04 | CT_ITS ---
EXAMINATION: CT HEAD WITHOUT CONTRAST CT ANGIOGRAM HEAD CT ANGIOGRAM NECK CLINICAL INFORMATION: Reason for Exam R sided deficits, aphasia COMPARISON: CT angiogram of head and neck 07/01/23 TECHNIQUE: Initial noncontrast package worker imaging of the head and neck was performed. Noncontrast head CT was also performed. Test bolus sequences followed by intravenous administration 70 mL of Omnipaque 350. Helical imaging was performed in the axial plane from the aortic arch to the skull vertex. Delayed postcontrast imaging of the head was also performed. The data was processed at the glass technologist's workstation for generation of MIP sequences. Angled MIPs and volume rendered reformatted images were also generated at an offline 3D workstation. Stenoses are assessed in accordance with Thomas et al. Quantification of Carotid Stenosis on CT Angiography. AJR 2006. 27(1):13-19. [address] CT examination was performed using dose optimization techniques as appropriate, variously including the following: *Automated exposure control *Adjustment of mA and/or kV according to patient size (this includes techniques or standardized protocols for targeted exams where dose is matched to indication/reason for exam; i.e. extremities or head) *Use of iterative reconstruction technique DLP: 2302 mGy-cm FINDINGS: CT HEAD: There is hypodensity along the left paramedian angela and left ventral medulla. No acute intracranial hemorrhage or abnormal intracranial enhancement. The ventricles and sulci are appropriate in size and configuration for the patient's stated age. No depressed calvarial fracture. Trace left mastoid opacification. The paranasal sinuses are essentially clear. Dense intracranial atherosclerotic calcification is noted. CTA HEAD: Suboptimal evaluation with significant intracranial venous contamination. Anterior circulation: Right internal carotid artery: No hemodynamically significant stenosis. Right middle cerebral artery: No hemodynamically significant stenosis. Right anterior cerebral artery: No hemodynamically significant stenosis. Left internal carotid artery: No hemodynamically significant stenosis. Left middle cerebral artery: No hemodynamically significant stenosis. Left anterior cerebral artery: No hemodynamically significant stenosis. Posterior circulation: Right vertebral artery: Progressive occlusion of the right vertebral artery mid to distal V4 segment compared to prior. Left vertebral artery: Only. Noncalcified atherosclerotic plaque with multifocal mild luminal irregularity appears comparable to prior. Basilar artery: No hemodynamically significant stenosis. Right posterior cerebral artery: origin. Patent. Left posterior cerebral artery: No hemodynamically significant stenosis. No high flow vascular malformation or significant aneurysmal dilatation is visualized. The major dural venous sinuses are grossly within normal limits given arterial technique. CTA NECK: Aortic arch: Normal anatomy. Right common carotid artery: No hemodynamically significant stenosis. Right proximal internal carotid artery: Atherosclerosis without flow-limiting stenosis. Right mid/distal internal carotid artery: No hemodynamically significant stenosis. Left common carotid artery: No hemodynamically significant stenosis. Left proximal internal carotid artery: Atherosclerosis without flow-limiting stenosis. Left mid/distal internal carotid artery: No hemodynamically significant stenosis. Right vertebral artery: Severe stenosis/short segment occlusion of the right vertebral artery origin. The artery reconstitutes superior to this and is patent to the remainder of its cervical course except for mild stenosis in the distal V3 segment that appears comparable to prior. Left vertebral artery: Dominant. Patent. CT NECK: Diffusely heterogeneous thyroid gland with calcification in the left thyroid lobe. No imaging follow-up is recommended per size criteria. CT/CT angio head neck IMPRESSION: CT HEAD: Hypodensity along the left paramedian angela suspicious for acute infarction. Correlation with MRI is recommended. Additional hypodensity along the left ventral medulla may be sequela of known prior medullary infarction but could be better evaluated with MRI. CTA NECK: Severe stenosis/short segment occlusion of the right vertebral artery origin. The artery reconstitutes superior to this and is patent through the remainder of its cervical course except for mild stenosis in the distal V3 segment that appears comparable to prior. CTA HEAD: Progressive occlusion of the right vertebral artery mid through distal V4 segment. This critical result was discussed with Dr. Connolly at 21:56 on 12/04/23 and it was ascertained that the content and urgency of the report was understood at the time of direct communication.
--- NOTE | ~2023-12-04 | MR_ITS ---
EXAMINATION: MR BRAIN WITHOUT CONTRAST CLINICAL INFORMATION: Cerebrovascular accident. COMPARISON: CTA head and neck from 12/04/2023. Brain MRI from 07/01/2023. TECHNIQUE: MRI of the brain was obtained using routine sequences without contrast. FINDINGS: Region of restricted diffusion in the left central/ventral angela. Associated T2 FLAIR hyperintensity. No evidence of hemorrhagic transformation. No additional restricted diffusion. No evidence of acute or chronic hemorrhagic products on heme-sensitive imaging. Scattered periventricular and deep white matter T2 FLAIR hyperintensities consistent with mild underlying microangiopathy. Proportional prominence of the ventricles and sulcal spaces without evidence of obstructive hydrocephalus. No abnormal mass effect. No midline shift. Normal appearance of the pituitary gland. Normal positioning of the cerebellar tonsils. Normal arterial and venous vascular flow voids are present. Normal, homogeneous marrow signal. Mild mucosal thickening of the paranasal sinuses. No signal abnormalities within the mastoids. MR/MR head/brain wo con IMPRESSION: 1. Acute infarct of the left central/ventral angela. No evidence of hemorrhagic transformation. 2. Mild underlying microangiopathy and generalized cerebral volume loss.
--- NOTE | 2023-12-04 15:46 | ECG_ITS ---
Test Reason : STROKE SYMPTOMS Blood Pressure : / mmHG Vent. Rate : 103 BPM Atrial Rate : 103 BPM P-R Int : 156 ms QRS Dur : 070 ms QT Int : 324 ms P-R-T Axes : 027 004 072 degrees QTc Int : 424 ms Sinus tachycardia Anterior infarct , age undetermined Abnormal ECG When compared with ECG of 29-JUN-2023 08:36, Vent. rate has increased BY 34 BPM Referred By: Esthela Lopez Electronically Signed By:ROMULO BLAS
[2023-12-04 16:17] VITALS: BP 151/95; PULSE 114; RESP 18; TEMP 37.1; O2SAT 94
--- NOTE | 2023-12-04 16:36 | ED_ITS ---
HPI - Neuro Symptoms/Deficit General Chief Complaint: Neuro Symptoms/Deficit Stated Complaint: R SIDED WEAKNESS Time Seen by Provider: 12/04/23 15:44 Source: patient, EMS and old records reviewed Mode of arrival: EMS Limitations: no limitations History of Present Illness ED Provider: DONN CLAROS Narrative: 63 yo female with PMH of prior stroke of bilateral medullary stroke - on aspirin and plavix dx June of 2023, adjustment disorder with anxiety, notes since rehab and stroke her weakness persisted in LLE. she notes new R arm and leg weakness that is much worse from prior. No change in meds, no trauma. She didn't want to come in again and have something bad happen. She also notes difficulty finding her words and getting them out since . took meds today - aspirin and plavix Onset (ago): day(s) () Location: speech, right arm and right leg History of same: Yes Severity: moderate Quality: weak Context: gradual onset On Anticoagulants: No Associated symptoms: denies other symptoms Treatments Prior to Arrival: Aspirin and other medication Related Data Home Medications ?Medication ?Instructions ?Recorded ?Confirmed glucosam 750 mg-chondroi 100 1 tab PO DAILY 06/29/23 06/29/23 mg-hyalur 1.65 mg-CF borate 108 mg tablet ([employer]) Previous Rx's ?Medication ?Instructions ?Recorded aspirin 81 mg tablet,delayed 81 mg PO DAILY #90 tabs 07/04/23 release atorvastatin 80 mg tablet 80 mg PO BEDTIME #90 tabs 07/04/23 clopidogrel 75 mg tablet 75 mg PO DAILY #90 tabs 07/04/23 hydroxyzine HCl 25 mg tablet 25 mg PO Q6H PRN 07/04/23 Anxiety/Restlessness #20 tabs omeprazole 40 mg capsule,delayed 40 mg PO DAILY@0630 #90 caps 07/04/23 release Allergies Allergy/AdvReac Type Severity Reaction Status Date / Time Penicillins [PCN] Allergy Intermediate RASH Verified 12/04/23 16:51 feathers [FEATHERS] Allergy Mild CONGESTION Verified 12/04/23 16:51 acetaminophen [From PERCOCET] Allergy Unknown VOMITING Verified 12/04/23 16:51 amoxicillin Allergy Unknown Rash Verified 12/04/23 16:51 cephalexin [Keflex] Allergy Unknown Rash Verified 08/12/24 16:51 oxycodone [From PERCOCET] Allergy Unknown VOMITING Verified 12/04/23 16:51 penicillin G Allergy Unknown Rash Verified 12/04/23 16:51 Review of Systems 2 Review of Systems: Constitutional : No Fever, No Chills, No Fatigue ENT/Mouth : No sore throat, No Rhinorrhea Eyes: No Eye Pain, No Swelling, No Redness Cardiovascular : No Chest Pain, No SOB, No Dyspnea on Exertion Respiratory : No Cough, No Sputum Gastrointestinal : No Nausea, No Vomiting, No Diarrhea, No abdominal Pain Genitourinary : No Dysuria, No Urinary Frequency, No Hematuria, Musculoskeletal : No joint pain, No Myalgias, No Joint Swelling Skin : No Skin Lesions, No rash Neuro : pos Weakness, No Numbness, No Dizziness, no Headache Psych : pos Anxiety/Panic, No Depression All other systems reviewed and are negative [facility] Past Medical History Attestation statement: The following information was validated with the patient. Source: old records reviewed Medical History (Updated 12/04/23 @ 20:44 by Esthela Lopez DO) Myelopathy Leg weakness Hydronephrosis Adjustment disorder with anxiety Anxiety Infarction of medulla oblongata Obesity (BMI 30-39.9) Social History Social History Household Members: Family Housing: House Do you presently have visiting nurse or other home services: No Patient Tobacco Use Status: Never used Tobacco Smoked in Last 30 Days: No Use of substances other than those prescribed or required for medical reasons: No Advance Directives: Yes Advance Directives on File: Yes Advance Directives Date on File: 07/05/23 Patient : No service: No Physical Exam 2 Vital Signs: Vital Signs: Last Vital Signs Temp 97.9 F 12/04/23 21:16 Pulse 100 12/04/23 21:16 Resp 20 12/04/23 21:16 BP 160/75 H 12/04/23 21:16 Pulse Ox 97 12/04/23 21:16 O2 Del Method Room Air 12/04/23 21:16 BMI result Body Mass Index 34.6 Appearance: Alert. Oriented X3. mild acute distress. anxious Eyes: Pupils equal, round and reactive to light. ENT: Pharynx normal. Neck: Normal inspection. Neck supple. CVS: Normal heart rate and rhythm. Pulses normal. Respiratory: No respiratory distress. Breath sounds normal. Abdomen: Soft and non-tender. Skin: Skin warm and dry. Normal skin color. Extremities: No lower extremity edema. Neuro: Oriented X 3. left leg weak 3+/5, R leg 3+/5, R arm 4/5, L arm 5/5, no clonus, has mild aphasia and dysarthria I do not notice facial droop Medications Administered Generic Name Dose Route Start Last Admin Trade Name Freq PRN Reason Stop Dose Admin Lactated Ringer's 1,000 mls @ 100 mls/hr 12/04/23 20:45 12/04/23 21:11 Lr IVCONT 100 mls/hr .Q10H MARIELLE Administration Discontinued Medications Generic Name Dose Route Start Last Admin Trade Name Freq PRN Reason Stop Dose Admin Lactated Ringer's 1,000 mls @ 999 mls/hr 12/04/23 17:47 12/04/23 20:05 Lr IV 12/04/23 18:47 Infused .Q1H1M ONE Infusion Insulin Human Regular 10 unit 12/04/23 17:47 12/04/23 18:11 Insulin Regular, Human 100 Unit/Ml 10 Ml Vial IVPUSH 12/04/23 17:48 Not Given ONCE ONE Insulin Human Regular 5 unit 12/04/23 17:47 12/04/23 18:10 Insulin Regular, Human 100 Unit/Ml 10 Ml Vial IVPUSH 12/04/23 17:48 5 unit ONCE ONE Administration Iohexol 100 ml 12/04/23 20:30 12/04/23 20:31 Iohexol 350 Mg/Ml 100 Ml Infus..Btl IV 12/04/23 20:31 70 ml ONCE ONE Administration Medical Decision Making Medical Decision Making MDM Narrative: 63 yo female with PMH of prior stroke of bilateral medullary stroke - on aspirin and plavix dx June of 2023, adjustment disorder with anxiety prior L leg deficits at this time c/o R sided deficits that started on will need basic labs, CTA of head and neck already took her aspirin and plavix. Denies head trauma concern for recurrent stroke may need to be fully anticoagulated at this point pending workup. Differential Diagnosis Differential Diagnoses: The differential diagnosis associated with the presentation includes stroke, anxiety Admission/Observation Consideration of admission/observation: Escalation of care including admission/observation considered signed out to Dr. Connolly pending CTA and repeat BMP Consult Healthcare Provider Management of the patient was discussed with: Hospitalist Lab Data MDM Lab Attestation statement: I reviewed the patient's lab results. 12/04/23 16:57 12/04/23 16:57 Labs: Lab Results 12/04/23 12/04/23 12/04/23 Range/Units 16:57 16:57 19:08 WBC 9.0 (4.8-10.8) X10*3/uL RBC 6.17 H (4.20-5.50) X10*6/uL Hgb 17.1 H (12.0-16.0) g/dl Hct 50.7 H (37.0-47.0) % MCV 82.2 (80.0-98.0) fL MCH 27.7 (27.0-33.0) pg MCHC 33.7 (31.0-35.0) g/dl RDW 12.9 (11.0-16.0) % Plt Count 176 D (160-400) X10*3/uL MPV 11.3 (9.4-12.3) fL Immature Gran % (Auto) 0.6 H (0.0-0.4) % Neut % (Auto) 62.9 (45-73) % Lymph % (Auto) 27.3 (20-40) % [place] % (Auto) 7.2 (2-11) % Eos % (Auto) 1.1 (0-4) % Baso % (Auto) 0.9 (0-2) % Lymph # (Auto) 2.5 (1.2-4.9) X10*3/uL [place] # (Auto) 0.7 (0.1-1.2) X10*3/uL Eos # (Auto) 0.1 (0.0-0.4) X10*3/uL Baso # (Auto) 0.1 (0.0-0.2) X10*3/uL Abs Immat Gran (auto) 0.05 H (0.00-0.03) X10*3/uL Absolute Neuts (auto) 5.7 (2.0-8.3) x10*3/uL Absolute Nucleated RBC 0.000 (0.0-0.012) X10*3/uL Nucleated RBC % (auto) 0.0 (0.0-0.2) /100WBC PT 11.0 L (11.1-13.3) SEC INR 0.9 (0.9-1.1) Sodium 138 (135-145) mmol/L Potassium 4.5 (3.3-5.1) mmol/L Chloride 106 (96-108) mmol/L Carbon Dioxide 16 L (22-29) mmol/L Anion Gap 21 H (12-20) BUN 18 H (9-16) mg/dL Creatinine 1.07 (0.5-1.4) mg/dL Estim Creat Clear Calc 56.0 Estimated GFR 52 POC Glucose 218 H (60-115) mg/dL Random Glucose 370 H* (60-115) mg/dL Calcium 9.9 (8.4-10.2) mg/dL Magnesium 2.1 (1.6-2.6) mg/dL Total Bilirubin 0.8 (0.0-1.0) mg/dL Direct Bilirubin 0.2 (0.0-0.5) mg/dL AST 53 H (5-31) U/L ALT 85 H (0-31) U/L Alkaline Phosphatase 206 H (39-117) U/L Troponin I High Sens 4.5 D (<3.5-17.0) ng/L Total Protein 7.3 (6.5-8.0) g/dL Albumin 4.4 (3.5-5.0) g/dL Triglycerides 294 H (<150) mg/dL Cholesterol 143 (<200) mg/dL LDL Cholesterol, Calc 53 (<100) mg/dL HDL Cholesterol 32 L (>40) mg/dL Ethyl Alcohol < 10 Cancelled mg/dL Independent Interpretation I performed an independent interpretation of an: EKG and CT Scan Interpretation: Rate: 103 Rhythm: sinus tachycardia Dragoon: left Normal P waves. Normal POLO. Normal QRS complex. ST T wave : nonspecific ST T wave changes lateral leads, no SUDARSHAN qTC: 424 prior studies: no acute ischemia The study has been interpreted contemporaneously by me. . Independent Historian Clinical information obtained from an independent historian. History obtained from or confirmed by: EMS External Record Review External record reviewed: Inpatient record NIH Stroke Scale Internal: Initial- Upon Arrival Level of Consciousness: Alert Level of Consciousness Questions: Answers both questions correctly Level of Consciousness Commands: Performs both tasks correctly Best Gaze: Normal Visual: No visual loss Facial Palsy: Normal Motor Arm (Right): Some effort against gravity Motor Arm (Left): No drift Motor Leg (Right): Some effort against gravity Motor Leg (Left): Some effort against gravity Limb Ataxia: Absent Sensory: Normal Best Language: Mild to moderate aphasia Dysarthia: Mild to moderate dysarthria Extinction and Inattention: No abnormality Score: 8 Discharge Plan Discharge Clinical Impression: Acute right-sided muscle weakness, Acute hyperglycemia Patient Disposition: Still a Patient Prescriptions: No Action Move Free Joint Health 750 mg-100 mg- 1.65 mg-108 mg Tablet 1 tab PO DAILY atorvastatin 80 mg Tablet 80 mg PO BEDTIME Qty: 90 0RF clopidogrel 75 mg Tablet 75 mg PO DAILY Qty: 90 0RF aspirin 81 mg Tablet,Delayed Release (Dr/Ec) 81 mg PO DAILY Qty: 90 0RF omeprazole 40 mg Capsule,Delayed Release(Dr/Ec) 40 mg PO DAILY@0630 Qty: 90 0RF hydroxyzine HCl 25 mg Tablet 25 mg PO Q6H PRN (Reason: Anxiety/Restlessness) Qty: 20 0RF Print Language: German
[2023-12-04 16:47] VITALS: BP 185/119; PULSE 120; O2SAT 95; BMI 34.6
[2023-12-04 17:05] LABS: MANUAL DIFF FLAG NO
[2023-12-04 17:13] LABS: Basophils Absolute Auto 0.1 X10*3/uL (0.0-0.2); Basophils Percent Auto 0.9 % (0-2); Eosinophils Absolute Auto 0.1 X10*3/uL (0.0-0.4); Eosinophils Percent Auto 1.1 % (0-4); Hematocrit 50.7 % (37.0-47.0); Hemoglobin 17.1 g/dl (12.0-16.0); Imm Gran Abs Auto 0.05 X10*3/uL (0.00-0.03); Imm Gran Pct Auto 0.6 % (0.0-0.4); Lymphocytes Absolute Auto 2.5 X10*3/uL (1.2-4.9); Lymphocytes Percent Auto 27.3 % (20-40); Mean Corpuscular HGB Conc 33.7 g/dl (31.0-35.0); Mean Corpuscular Hemoglobin 27.7 pg (27.0-33.0); Mean Corpuscular Volume 82.2 fL (80.0-98.0); Mean Platelet Volume 11.3 fL (9.4-12.3); Monocytes Absolute Auto 0.7 X10*3/uL (0.1-1.2); Monocytes Percent Auto 7.2 % (2-11); Neutrophils Absolute Auto 5.7 x10*3/uL (2.0-8.3); Neutrophils Percent Auto 62.9 % (45-73); Platelet Count 176 X10*3/uL (160-400); Red Blood Count 6.17 X10*6/uL (4.20-5.50); Red Cell Distribution Width 12.9 % (11.0-16.0)
[2023-12-04 17:20] LABS: INTERNATIONAL NORM RATIO 0.9 (0.9-1.1)
[2023-12-04 17:36] LABS: Alanine Aminotransferase 85 U/L (0-31); Albumin Level 4.4 g/dL (3.5-5.0); Alkaline Phosphatase 206 U/L (39-117); Anion Gap 21 (12-20); Aspartate Amino Transferase 53 U/L (5-31); Bilirubin Direct 0.2 mg/dL (0.0-0.5); Bilirubin Total 0.8 mg/dL (0.0-1.0); Blood Urea Nitrogen 18 mg/dL (9-16); Calcium 9.9 mg/dL (8.4-10.2); Carbon Dioxide 16 mmol/L (22-29); Chloride 106 mmol/L (96-108); Cholesterol 143 mg/dL (<200); Estimated Glomerular Filt Rate 52; Ethanol < 10 mg/dL; Glucose Random 370 mg/dL (60-115); HDL Cholesterol 32 mg/dL (>40); LDL Cholesterol Calculated 53 mg/dL (<100); Magnesium 2.1 mg/dL (1.6-2.6); Potassium 4.5 mmol/L (3.3-5.1); Sodium 138 mmol/L (135-145); Total Protein 7.3 g/dL (6.5-8.0); Triglycerides 294 mg/dL (<150)
[2023-12-04 17:38] LABS: Troponin-I High Sensitivity 4.5 ng/L (<3.5-17.0)
[2023-12-04] MEDS: Lactated Ringers 1,000 ML 999 ML IV (18:07)
[2023-12-04] MEDS: Insulin Regular, Human 100 UNIT/ML 10 ML VIAL IVPUSH (18:10)
--- NOTE | 2023-12-04 19:08 | PC.NURSE ---
assumed care of pt at 1900.
[2023-12-04 19:15] LABS: Glucose, Whole Blood 218 mg/dL (60-115)
--- NOTE | 2023-12-04 19:58 | PC.NURSE ---
ultrasound guided iv placed by SHELIA Villa. #18g IV L upper arm., pt ready for CT scan.
[2023-12-04] MEDS: iohexoL 350 MG/ML 100 ML INFUS..BTL IV (20:31)
[2023-12-04] MEDS: Lactated Ringers 1,000 ML 100 ML IVCONT (21:11)
[2023-12-04 21:16] VITALS: BP 160/75; PULSE 100; RESP 20; TEMP 36.6; O2SAT 97
[2023-12-04 21:23] LABS: Appearance Urine Clear; Color Urine Yellow; Glucose Urine UA >=1000 mg/dL (Negative); Leukocyte Esterase Urine Negative (Negative); Nitrite Urine Negative (Negative); Specific Gravity - Urine >= 1.030 (1.005-1.025); UMIC TRIGGER UACC YES; Urine Blood Negative (Negative); Urine Ketones Trace mg/dL (Negative); Urine Protein 30 (1+) mg/dL (Neg-Trace)
[2023-12-04 21:28] LABS: Bacteria Urine Trace (None Seen); Hyaline Casts Urine 0-2 /LPF (0-2); RBC Urine 0-2 /HPF (0-2); Squamous Epithelial Cell Urine 0-2 /HPF (0-2); WBC Urine 0-5 /HPF (0-5)
[2023-12-04 21:54] LABS: Amphetamine Screen Urine Not Detected (Not Detect); Barbiturates, Urine Not Detected (Not Detect); Benzodiazepines Screen Urine Not Detected (Not Detect); Buprenorphine Scr Not Detected (Not Detect); Cannabinoid Screen Urine Not Detected (Not Detect); Cocaine Screen Urine Not Detected (Not Detect); Fentanyl, urine Not Detected (Not Detect); Methadone Screen, Urine Not Detected (Not Detect); Opiate Screen Urine Not Detected (Not Detect); Oxycodone Screen Urine Not Detected (Not Detect); Phencyclidine Screen Urine Not Detected (Not Detect)
[2023-12-04] MEDS: Acetaminophen 325 MG TABLET 975 MG PO (22:14)
[2023-12-04] MEDS: Aspirin 325 MG TABLET PO (22:14)
--- NOTE | 2023-12-04 22:17 | P.HPHOSP_ITS ---
History of Present Illness Date of Service: 12/04/23 Chief Complaint: Right sided weakness This is a 63-year-old female with pertinent history of bilateral medullary stroke, mood disorder who presents to the emergency department for evaluation of right-sided weakness. Patient states she has been having right upper and lower extremity weakness that started 3 days prior to presentation. Her sister prompted her to visit to the hospital as the weakness was worse on the day of presentation. Patient was diagnosed with bilateral medullary stroke in June of 2023. States she has been compliant with her medications including aspirin and Plavix. No vision changes. No fever, chills, chest discomfort, palpitations, shortness of breath, abdominal pain, changes in urinary or bowel habits. In the emergency department, CT of the head with acute left pontine stroke. Review of Systems 2 Constitutional: Constitutional: Reports no additional constitutional complaints Cardiovascular: Cardiovascular: Reports no additional cardiovascular complaints Respiratory: Respiratory: Reports no additional respiratory complaints Gastrointestinal: Gastrointestinal: Reports no additional gastrointestinal complaints Genitourinary: Genitourinary: Reports no additional female genitourinary complaints [facility] Medical History Myelopathy Leg weakness Hydronephrosis Adjustment disorder with anxiety Anxiety Infarction of medulla oblongata Obesity (BMI 30-39.9) Pertinent family history: No family history of early CAD Social History Household Members: Family Housing: House Do you presently have visiting nurse or other home services: No Patient Tobacco Use Status: Never used Tobacco Advance Directives Date on File: 07/05/23 service: No Meds Allergies Allergy/AdvReac Type Severity Reaction Status Date / Time Penicillins [PCN] Allergy Intermediate RASH Verified 12/04/23 16:51 feathers [FEATHERS] Allergy Mild CONGESTION Verified 12/04/23 16:51 acetaminophen [From PERCOCET] Allergy Unknown VOMITING Verified 12/04/23 16:51 amoxicillin Allergy Unknown Rash Verified 12/04/23 16:51 cephalexin [Keflex] Allergy Unknown Rash Verified 12/04/23 16:51 oxycodone [From PERCOCET] Allergy Unknown VOMITING Verified 12/04/23 16:51 penicillin G Allergy Unknown Rash Verified 12/04/23 16:51 Active Medications: Current Medications Lactated Ringer's (Lr) 1,000 mls @ 100 mls/hr IVCONT .Q10H MARIELLE Last Admin: 12/04/23 21:11 Dose: 100 mls/hr Home Medications ?Medication ?Instructions ?Recorded ?Confirmed ?Last Taken ?Type glucosam 750 mg-chondroi 100 1 tab PO DAILY 06/29/23 06/29/23 Unknown History mg-hyalur 1.65 mg-CF borate 108 mg tablet ([employer]) Physical Exam 2 Vital Signs and Narrative: Vital Signs: Last Vital Signs Temp 97.9 F 12/04/23 21:16 Pulse 100 12/04/23 21:16 Resp 20 12/04/23 21:16 BP 160/75 H 12/04/23 21:16 Pulse Ox 97 12/04/23 21:16 O2 Del Method Room Air 12/04/23 21:16 BMI result Body Mass Index 34.6 Middle-aged male lying in bed in no distress Neck supple, no JVD Regular rate and rhythm, S1-S2 heard Regular breath sounds bilaterally, no wheezing or crackles appreciated Abdomen soft nontender, no guarding, no rigidity Patient is awake, alert and oriented to self, place, time and person ; right- sided weakness present, no facial droop, no nystagmus Psych: Normal mood No pedal edema Results Labs 12/04/23 16:57 12/04/23 22:03 Labs: Laboratory Results - last 24 hr 12/04/23 12/04/23 12/04/23 16:57 16:57 19:08 MCV 82.2 MCH 27.7 MCHC 33.7 RDW 12.9 Plt Count 176 D MPV 11.3 Immature Gran % (Auto) 0.6 H Neut % (Auto) 62.9 Lymph % (Auto) 27.3 [place] % (Auto) 7.2 Eos % (Auto) 1.1 Baso % (Auto) 0.9 Lymph # (Auto) 2.5 [place] # (Auto) 0.7 Eos # (Auto) 0.1 Baso # (Auto) 0.1 Abs Immat Gran (auto) 0.05 H Absolute Neuts (auto) 5.7 Absolute Nucleated RBC 0.000 Nucleated RBC % (auto) 0.0 PT 11.0 L INR 0.9 Anion Gap 21 H Estim Creat Clear Calc 56.0 Estimated GFR 52 POC Glucose 218 H Random Glucose 370 H* Calcium 9.9 Magnesium 2.1 Total Bilirubin 0.8 Direct Bilirubin 0.2 AST 53 H ALT 85 H Alkaline Phosphatase 206 H Troponin I High Sens 4.5 D Total Protein 7.3 Albumin 4.4 Triglycerides 294 H Cholesterol 143 LDL Cholesterol, Calc 53 HDL Cholesterol 32 L Urine Color Urine Appearance Urine pH Ur Specific [place] Urine Protein Urine Glucose (UA) Urine Ketones Urine Blood Urine Nitrite Ur Leukocyte Esterase Urine RBC Urine WBC Ur Squamous Epith Cells Urine Bacteria Hyaline Casts Urine Opiates Screen Ur Buprenorphine Scrn Ur Oxycodone Screen Urine Methadone Screen Urine Fentanyl Screen Ur Barbiturates Screen Ur Phencyclidine Scrn Ur Amphetamines Screen U Benzodiazepines Scrn Urine Cocaine Screen U Marijuana (THC) Screen Ethyl Alcohol < 10 Cancelled 12/04/23 21:13 MCV MCH MCHC RDW Plt Count MPV Immature Gran % (Auto) Neut % (Auto) Lymph % (Auto) [place] % (Auto) Eos % (Auto) Baso % (Auto) Lymph # (Auto) [place] # (Auto) Eos # (Auto) Baso # (Auto) Abs Immat Gran (auto) Absolute Neuts (auto) Absolute Nucleated RBC Nucleated RBC % (auto) PT INR Anion Gap Estim Creat Clear Calc Estimated GFR POC Glucose Random Glucose Calcium Magnesium Total Bilirubin Direct Bilirubin AST ALT Alkaline Phosphatase Troponin I High Sens Total Protein Albumin Triglycerides Cholesterol LDL Cholesterol, Calc HDL Cholesterol Urine Color Yellow Urine Appearance Clear Urine pH 6.0 Ur Specific [place] >= 1.030 H Urine Protein 30 (1+) H Urine Glucose (UA) >=1000 H Urine Ketones Trace Urine Blood Negative Urine Nitrite Negative Ur Leukocyte Esterase Negative Urine RBC 0-2 Urine WBC 0-5 Ur Squamous Epith Cells 0-2 Urine Bacteria Trace Hyaline Casts 0-2 Urine Opiates Screen Not Detected Ur Buprenorphine Scrn Not Detected Ur Oxycodone Screen Not Detected Urine Methadone Screen Not Detected Urine Fentanyl Screen Not Detected Ur Barbiturates Screen Not Detected Ur Phencyclidine Scrn Not Detected Ur Amphetamines Screen Not Detected U Benzodiazepines Scrn Not Detected Urine Cocaine Screen Not Detected U Marijuana (THC) Screen Not Detected Ethyl Alcohol Imaging Radiologist's Impressions: Impressions Head/Neck CTA 12/04/23 20:51 IMPRESSION: CT HEAD: Hypodensity along the left paramedian angela suspicious for acute infarction. Correlation with MRI is recommended. Additional hypodensity along the left ventral medulla may be sequela of known prior medullary infarction but could be better evaluated with MRI. CTA NECK: Severe stenosis/short segment occlusion of the right vertebral artery origin. The artery reconstitutes superior to this and is patent through the remainder of its cervical course except for mild stenosis in the distal V3 segment that appears comparable to prior. CTA HEAD: Progressive occlusion of the right vertebral artery mid through distal V4 segment. This critical result was discussed with Dr. Connolly at 21:56 on 12/04/23 and it was ascertained that the content and urgency of the report was understood at the time of direct communication. Assessment and Plan (1) Left pontine stroke: Status: Acute Plan This is a 63-year-old female with pertinent history of bilateral medullary stroke, mood disorder who presents to the emergency department for evaluation of right-sided weakness. #. Acute left pontine CVA: Will admit patient with cardiac monitoring. Obtaining echocardiogram, lipid panel and A1c to complete workup. Patient on high-intensity statin and DVT. Consulted Neurology, appreciate assistance. PT/OT to evaluate and treat. NPO until patient passes swallow screen. Obtaining MRI #. Mood disorder: Continue home mood stabilizers Med rec pending DVT prophylaxis: Lovenox Full code Admit as inpatient and will require two night minimum hospital stay for management of acute CVA (as above), which is not possible in a lesser acute setting. Quality Stroke Does the patient have a stroke diagnosis?: No VTE Prior VTE?: No VTE Risk Level:: Medical - moderate - high VTE Device Contraindication: Treatment Not Indicated VTE Drug Contraindication: N/A - Med Ordered
[2023-12-04 22:22] LABS: Anion Gap 16 (12-20); Blood Urea Nitrogen 14 mg/dL (9-16); Calcium 8.8 mg/dL (8.4-10.2); Carbon Dioxide 23 mmol/L (22-29); Chloride 105 mmol/L (96-108); Creatinine Clr Calc Pharmacy 64.5; Estimated Glomerular Filt Rate > 60; Glucose Random 225 mg/dL (60-115); Potassium 3.5 mmol/L (3.3-5.1); Sodium 140 mmol/L (135-145)
[2023-12-05] VITALS (9 sets, daily range): BP systolic 113–164; BP diastolic 71–100; PULSE 70–94; RESP 15–20; TEMP 36.3–36.7; O2SAT 94–99; BMI 33.3
[2023-12-05] MEDS: Enoxaparin Sodium 40 MG/0.4 ML SYRINGE SUBCUT (00:29)
--- NOTE | 2023-12-05 00:57 | PC.NURSE ---
pt moved into room 7 from 6H, placed onto nurse monitoring. Pt ambulates with this RN to and from bathroom with a steady gait, slight weakness to extremities (baseline). pt tearful and weepy says she has been like this ever since her previous stroke. Denies acute pain or any specific reason for crying. call lew within reach, needs met. Plan of care ongoing.
[2023-12-05 06:41] LABS: MANUAL DIFF FLAG NO
[2023-12-05 06:47] LABS: Basophils Absolute Auto 0.1 X10*3/uL (0.0-0.2); Basophils Percent Auto 0.9 % (0-2); Eosinophils Absolute Auto 0.2 X10*3/uL (0.0-0.4); Eosinophils Percent Auto 1.8 % (0-4); Hematocrit 48.5 % (37.0-47.0); Hemoglobin 16.2 g/dl (12.0-16.0); Imm Gran Abs Auto 0.04 X10*3/uL (0.00-0.03); Imm Gran Pct Auto 0.5 % (0.0-0.4); Lymphocytes Absolute Auto 2.7 X10*3/uL (1.2-4.9); Lymphocytes Percent Auto 30.4 % (20-40); Mean Corpuscular HGB Conc 33.4 g/dl (31.0-35.0); Mean Corpuscular Hemoglobin 27.4 pg (27.0-33.0); Mean Corpuscular Volume 82.1 fL (80.0-98.0); Mean Platelet Volume 10.6 fL (9.4-12.3); Monocytes Absolute Auto 0.6 X10*3/uL (0.1-1.2); Monocytes Percent Auto 6.4 % (2-11); Neutrophils Absolute Auto 5.3 x10*3/uL (2.0-8.3); Platelet Count 178 X10*3/uL (160-400); Red Blood Count 5.91 X10*6/uL (4.20-5.50); Red Cell Distribution Width 12.8 % (11.0-16.0); White Blood Count 8.8 X10*3/uL (4.8-10.8)
--- NOTE | 2023-12-05 07:00 | CA_ITS ---
Transthoracic Echocardiogram Patient (Last, First, Middle): Geovanna Kerns M Gender: Female Date of : 1960 Age: 63 Procedure Date: 12/05/2023 Procedure Type: Transthoracic Echocardiogram Location: ER Height: 157.48 cm Weight: 85.28 kg BSA: 1.86 m2 Heart Rate: 70 bpm BP: 139 / 75 mmHg Gre Instructor: SB Referring MD: Akin Montaño MD Symptoms: CVA bubble study not needed per Dr. Montaño Study Quality: Fair ECG Rhythm: Sinus Conclusions: - The left ventricular systolic function is normal. The visually estimated ejection fraction is between 60-65%. - No obvious valvular pathology seen on this study. Findings Procedure Information Contrast agent, definity, is being given per protocol without apparent complications. The quality of the study was technically difficult. The study quality is limited by patients body habitus. Left Ventricle Normal left ventricular cavity size. The left ventricular systolic function is normal. The visually estimated ejection fraction is between 60-65%. There is no evidence of regional wall motion abnormalities. Evidence suggests grade I (mild) diastolic dysfunction. Focal moderate hypertrophy of the basal septum. Right Ventricle Normal right ventricular cavity size. Atria Both atria are normal in size. Aortic Valve The aortic valve structure and function is likely normal. There is no aortic valve stenosis. There is no aortic valve regurgitation. Mitral Valve The mitral valve appears normal. There is no mitral valve regurgitation. There is no mitral valve stenosis. Pulmonic Valve The pulmonic valve is likely normal. Tricuspid Valve There is mild tricuspid valve regurgitation. There is no evidence of pulmonary hypertension. Great Vessels The asc aorta is normal in size. Small plaque is seen in the sino tubular ridge. Venous The inferior vena cava was not well visualized. Pericardium/Pleural There is no evidence of pericardial effusion. Prior Study Comparison No significant change compared to prior study dated: 07/04/2023. Recommendations, Care & Conclusions No obvious valvular pathology seen on this study. Measurements 2D Linear Measurements IVSd: 0.67 0.6-0.9/0.6-1.0 cm LVIDd: 5.07 3.9-5.3/4.2-5.9 cm LVIDd Index: 2.73 2.4-3.2/2.2-3.1 cm/m2 LVIDs: 3.07 2.0-3.6 cm LVPWd: 0.76 0.7-1.1 cm LA Diam: 3.00 2.7-3.8/3.0-4.0 cm LAIDs Index: 1.61 1.5-2.3 cm/m2 LV Mass: 149.94 67-162/88-224 g LV Mass Index: 80.61 43-95/49-115 g/m2 LVOT Diam: 2.20 3.0+(-)1.3 cm 2D Systolic Function EF 4C: 68.40 >55% EF 2C: 60.50 >55% EF BiP: 65.70 >55% Mitral Valve MV Pk E: 0.72 MV PK A: 1.02 MV Decel Time: 202.00 E/A: 0.70 E'Lateral: 5.44 E'Medial: 4.46 E/E' Med: 16.20 E/E' Lat: 13.30 PHT: 59.00 MVA PHT: 3.73 Decel Chaves: 3.57 Aortic Valve AoV Pk Brian: 1.47 AoV Pk Grad: 9.00 GOMEZ: 2.82 LVOT LVOT Pk Brian: 1.02 LVOT Mn Brian: 0.66 LVOT VTI: 0.18 LVOT Pk Grad: 4.00 LVOT Mn Grad: 2.00 LVOT Diam: 2.20 LVOT Area: 3.80 Diastolic Function MV Pk E: 0.72 MV Pk A: 1.02 E/A: 0.70 E'Medial: 4.46 E/E' Med: 16.20 E' Laterial: 5.44 E/E' Lat: 13.30 Right Ventricle TAPSE (mm): 23.80 TVS' Brian: 13.20 Tricuspid Valve TR Pk Brian: 2.04 TR Pk Grad: 17.00 Great Vessels Aorta Sinus of Valsalva: 2.70 2.0-3.5 cm Ao Asc: 3.00 2.1-3.4 cm Pulmonary Valve PV Pk Brian: 1.25 Peak PV Grad: 6.00 Updated in Other Vendor System with Status of Final Manas Coats MD electronically signed on 12/05/2023 11:48:19 AM with status of Final
[2023-12-05 07:01] LABS: Anion Gap 14 (12-20); Blood Urea Nitrogen 12 mg/dL (9-16); Calcium 9.2 mg/dL (8.4-10.2); Carbon Dioxide 20 mmol/L (22-29); Chloride 107 mmol/L (96-108); Creatinine Clr Calc Pharmacy 65.9; Estimated Glomerular Filt Rate > 60; Glucose Random 241 mg/dL (60-115); Sodium 137 mmol/L (135-145)
[2023-12-05 07:04] LABS: Cholesterol 130 mg/dL (<200); HDL Cholesterol 28 mg/dL (>40); LDL Cholesterol Calculated 54 mg/dL (<100); Triglycerides 244 mg/dL (<150)
[2023-12-05 07:56] LABS: Estimated Average Glucose 326 mg/dL
[2023-12-05] MEDS: Lactated Ringers 1,000 ML 100 ML IVCONT (08:18)
--- NOTE | 2023-12-05 08:44 | MHC.CM.PN ---
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
[2023-12-05] MEDS: Aspirin Enteric Coated 81 MG TABLET.DR PO (09:18)
--- NOTE | 2023-12-05 10:02 | PHA.MEDREC ---
Addendum entered by Kamaljit Alanis RPh 12/05/23 10:26: Med rec was reviewed. Original Note: Pharmacy Consult ? Medication Reconciliation Pharmacy has completed the medication reconciliation. Confirmed medications with photos of RX bottles on phone and confirmation of dosing from patient.
[2023-12-05] MEDS: lisinopriL 5 MG TABLET PO (10:19)
[2023-12-05] MEDS: Clopidogrel Bisulfate 75 MG TABLET PO (10:19)
[2023-12-05] MEDS: LORazepam 2 MG/ML VIAL 0.5 MG IVPUSH (10:19)
--- NOTE | 2023-12-05 10:38 | MHC.STROKE ---
Met with patient and family. Pt awake, alert and oriented x 3. Plan of care discussed with patient and patient agreeable to plan. At this time, awaiting MRI. This writer technical publications spoke with MRI and asked when patient was to have her testing. MRI reporting that patient could come now for test. Pt agreeable. Stroke Education provided, pt declined pamphlet as she already has one at home. Risk factors discussed. Will continue to assist as needed.
--- NOTE | 2023-12-05 11:28 | HO.PM.IMPN ---
Subjective Subjective Date of Service: 12/05/23 Interval History: Seen and evaluated this morning Feels little stronger in right side denies any fever or chills get anxious but overall fluent speech no other events Review of Systems Review of Systems: Yes all other systems are reviewed and are negative Physical Exam Vital Signs: Vital Signs: Last Vital Signs Temp 97.8 F 12/05/23 10:44 Pulse 75 12/05/23 10:44 Resp 15 12/05/23 10:44 BP 157/100 H 12/05/23 10:44 Pulse Ox 99 12/05/23 10:44 O2 Del Method Room Air 12/05/23 10:44 BMI result Body Mass Index 34.6 Const: Other: Constitutional : Awake, interactive, not in distress Neck : Normal inspection, Supple Cardiovascular : RRR, no JVP, no lower extremity edema Respiratory : good bilateral air entry, no crackles, wheezes or rhonchi Gastrointestinal: soft, lax, Normal bowel sounds, Non tender Skin : Warm, Dry Neurological : Alert & oriented x3, fluent speech gets anxious and mixes words on occasions, CN 2-12 within normal, mild weakness upper extremities, Lower ex weakness 3+/5 bilaterally weaker on the left side. Objective Data Active Medications Acetaminophen (Acetaminophen 325 Mg Tablet) 650 mg PO Q6H PRN PRN Reason: Pain, Mild (Pain Scale 1-3), fever or headache Aspirin (Aspirin Enteric Coated 81 Mg Tablet.Dr) 81 mg PO DAILY [facility] Last Admin: 12/05/23 09:18 Dose: 81 mg Documented By: VANDANA Atorvastatin Calcium (Atorvastatin Calcium 80 Mg Tablet) 80 mg PO BEDTIME [facility] Calcium Carbonate (Calcium Carbonate 750 Mg Tab.Chew) 750 mg PO Q4H PRN PRN Reason: Heartburn Clopidogrel Bisulfate (Clopidogrel Bisulfate 75 Mg Tablet) 75 mg PO DAILY [facility] Last Admin: 12/05/23 10:19 Dose: 75 mg Documented By: VANDANA Enoxaparin Sodium (Enoxaparin Sodium 40 Mg/0.4 Ml Syringe) 40 mg SUBCUT Q24H [facility] Last Admin: 12/05/23 00:29 Dose: 40 mg Documented By: ELVIA Lactated Ringer's (Lr) 1,000 mls @ 100 mls/hr IVCONT .Q10H [facility] Last Admin: 12/05/23 08:18 Dose: 100 mls/hr Documented By: VANDANA Lisinopril (Lisinopril 5 Mg Tablet) 5 mg PO DAILY [facility]; Protocol Last Admin: 12/05/23 10:19 Dose: 5 mg Documented By: VANDANA Magnesium Hydroxide (Milk Of Magnesia 30 Ml Oral.Susp) 30 ml PO DAILY PRN PRN Reason: Constipation Melatonin (Melatonin 3 Mg Tablet) 6 mg PO BEDTIME PRN PRN Reason: Insomnia Ondansetron HCl (Ondansetron Hcl 4 Mg/2 Ml Vial) 4 mg IVPUSH Q8H PRN PRN Reason: Nausea and Vomiting Oxybutynin Chloride (Oxybutynin Chloride Er 5 Mg Tab.Er.24) 5 mg PO DAILY [facility] Labs 12/05/23 06:36 12/05/23 06:36 Labs: Laboratory Results - last 24 hr 12/04/23 12/04/23 12/04/23 16:57 16:57 19:08 MCV 82.2 MCH 27.7 MCHC 33.7 RDW 12.9 Plt Count 176 D MPV 11.3 Immature Gran % (Auto) 0.6 H Neut % (Auto) 62.9 Lymph % (Auto) 27.3 [place] % (Auto) 7.2 Eos % (Auto) 1.1 Baso % (Auto) 0.9 Lymph # (Auto) 2.5 [place] # (Auto) 0.7 Eos # (Auto) 0.1 Baso # (Auto) 0.1 Abs Immat Gran (auto) 0.05 H Absolute Neuts (auto) 5.7 Absolute Nucleated RBC 0.000 Nucleated RBC % (auto) 0.0 PT 11.0 L INR 0.9 Anion Gap 21 H Estim Creat Clear Calc 56.0 Estimated GFR 52 POC Glucose 218 H Random Glucose 370 H* Estimat Average Glucose 326 Hemoglobin A1c % 13.0 H Calcium 9.9 Magnesium 2.1 Total Bilirubin 0.8 Direct Bilirubin 0.2 AST 53 H ALT 85 H Alkaline Phosphatase 206 H Troponin I High Sens 4.5 D Total Protein 7.3 Albumin 4.4 Triglycerides 294 H Cholesterol 143 LDL Cholesterol, Calc 53 HDL Cholesterol 32 L Urine Color Urine Appearance Urine pH Ur Specific [place] Urine Protein Urine Glucose (UA) Urine Ketones Urine Blood Urine Nitrite Ur Leukocyte Esterase Urine RBC Urine WBC Ur Squamous Epith Cells Urine Bacteria Hyaline Casts Urine Opiates Screen Ur Buprenorphine Scrn Ur Oxycodone Screen Urine Methadone Screen Urine Fentanyl Screen Ur Barbiturates Screen Ur Phencyclidine Scrn Ur Amphetamines Screen U Benzodiazepines Scrn Urine Cocaine Screen U Marijuana (THC) Screen Ethyl Alcohol < 10 Cancelled 12/04/23 12/04/23 12/05/23 21:13 22:03 06:36 MCV 82.1 MCH 27.4 MCHC 33.4 RDW 12.8 Plt Count 178 MPV 10.6 Immature Gran % (Auto) 0.5 H Neut % (Auto) 60.0 Lymph % (Auto) 30.4 [place] % (Auto) 6.4 Eos % (Auto) 1.8 Baso % (Auto) 0.9 Lymph # (Auto) 2.7 [place] # (Auto) 0.6 Eos # (Auto) 0.2 Baso # (Auto) 0.1 Abs Immat Gran (auto) 0.04 H Absolute Neuts (auto) 5.3 Absolute Nucleated RBC 0.000 Nucleated RBC % (auto) 0.0 PT INR Anion Gap 16 14 Estim Creat Clear Calc 64.5 65.9 Estimated GFR > 60 > 60 POC Glucose Random Glucose 225 H 241 H Estimat Average Glucose Hemoglobin A1c % Calcium 8.8 D 9.2 Magnesium Total Bilirubin Direct Bilirubin AST ALT Alkaline Phosphatase Troponin I High Sens Total Protein Albumin Triglycerides 244 H Cholesterol 130 LDL Cholesterol, Calc 54 HDL Cholesterol 28 L Urine Color Yellow Urine Appearance Clear Urine pH 6.0 Ur Specific [place] >= 1.030 H Urine Protein 30 (1+) H Urine Glucose (UA) >=1000 H Urine Ketones Trace Urine Blood Negative Urine Nitrite Negative Ur Leukocyte Esterase Negative Urine RBC 0-2 Urine WBC 0-5 Ur Squamous Epith Cells 0-2 Urine Bacteria Trace Hyaline Casts 0-2 Urine Opiates Screen Not Detected Ur Buprenorphine Scrn Not Detected Ur Oxycodone Screen Not Detected Urine Methadone Screen Not Detected Urine Fentanyl Screen Not Detected Ur Barbiturates Screen Not Detected Ur Phencyclidine Scrn Not Detected Ur Amphetamines Screen Not Detected U Benzodiazepines Scrn Not Detected Urine Cocaine Screen Not Detected U Marijuana (THC) Screen Not Detected Ethyl Alcohol Assessment and Plan (1) Occlusion of right vertebral artery: Status: Acute (2) Left pontine stroke: Status: Acute (3) Acute hyperglycemia: Status: Acute (4) Acute right-sided muscle weakness: Status: Acute (5) Hyperglycemia due to type 2 diabetes mellitus: Status: Acute Plan This is a 63-year-old female with pertinent history of bilateral medullary stroke, mood disorder who presents to the emergency department for evaluation of right-sided weakness. # Right sided weakness 2/2 likely Acute left pontine CVA Keep on Tele Pending MRI Obtaining echocardiogram lipid panel showing high TG and low HDL Continue high-intensity statin and DAP Consult Neurology PT/OT to evaluate and treat NPO until PLANT MAINTENANCE MECHANIC eval # Newly diagnosed Type II DM with hyperglycemia HbA1c of 13 Start Lantus and SSI Start Metformin diabetic diet once cleared to eat # Mood disorder Continue home mood stabilizers # Urine incontenince Continue Oxybutynin DVT prophylaxis: Lovenox Full code Admit as inpatient and will require two night minimum hospital stay for management of acute CVA (as above), which is not possible in a lesser acute setting. Quality Stroke Does the patient have a stroke diagnosis?: No VTE Prior VTE?: No VTE Risk Level:: Medical - moderate - high VTE Device Contraindication: Treatment Not Indicated VTE Drug Contraindication: N/A - Med Ordered
--- NOTE | 2023-12-05 11:58 | MHC.SL.SWA ---
Speech Pathologist Impression: Risk of Aspiration Due to: None Dysphasia Diet Status: Liquid Consistency and Strategies for Safe Swallow: Solid Food Consistency: Dietary Recommendations: Regular Additional Modifications to Solid Foods: Recommend START diet of REGULAR SOLIDS and THIN LIQUIDS. MEDS WHOLE with PUREE. Pt is an independent feed. ORACLE FUSION CONSULTANT to follow-up x1 to ensure tolerance in the setting of acute C Oral Medication Intake: Whole with Liquid Please contact the pharmacy regarding appropriate crushable or liquid drug formulations that are available whenever modified delivery is recommended. Compensatory Strategies and Precautions to be Taken for Safe Swallow: Sitting Upright (90 deg) Liquids from Straw Small Bites and Sips Alternate Liquids/Solids Supervision While Eating and Drinking for Safe Swallow: None Needed Foods to Avoid: Swallowing Recommended Treatments: Compens. Strategy Educat. Recommendation for Speech: Inpatient Speech Therapy Comment: Recommend START diet of REGULAR SOLIDS and THIN LIQUIDS. MEDS WHOLE with PUREE. Pt is an independent feed. ORACLE FUSION CONSULTANT to follow-up x1 to ensure tolerance in the setting of acute CVA. Timeline to reassess: PRN Conveyor Weigher Operator Clinican/Clinical Fellow: No Supervisory Statement: I have reviewed and agree with the student/clinical fellow's documentation: N/A Speech Language Pathologist: Harpreet Chan M.A., CCC-ORACLE FUSION CONSULTANT
--- NOTE | 2023-12-05 13:35 | P.CNNE_ITS ---
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 Patient states she has been having right upper and lower extremity weakness that started 3 days prior to presentation. Her sister prompted her to come to the ER as the weakness was worse on the day of presentation. Patient was diagnosed with bilateral medullary stroke in June of 2023. States she has been compliant with her medications including aspirin and Plavix and Atorvastatin. No vision changes. No fever, chills, chest discomfort, palpitations, shortness of breath, abdominal pain, changes in urinary or bowel habits. MRI shows an acute pontine, central and ventral infarct and CTA shows further occlusive disease in the right vertebral artery distally and at origin of right vertebral artery in the neck. Other arteries are wide open. [facility], [facility] Past Medical History Medical History Myelopathy Leg weakness Hydronephrosis Adjustment disorder with anxiety Anxiety Infarction of medulla oblongata Obesity (BMI 30-39.9) Social History Social History Household Members: Family Housing: House Do you presently have visiting nurse or other home services: No Patient Tobacco Use Status: Never used Tobacco Advance Directives Date on File: 07/05/23 service: No Meds Allergies Allergy/AdvReac Type Severity Reaction Status Date / Time Penicillins [PCN] Allergy Intermediate RASH Verified 12/04/23 16:51 feathers [FEATHERS] Allergy Mild CONGESTION Verified 12/04/23 16:51 acetaminophen [From PERCOCET] Allergy Unknown VOMITING Verified 12/04/23 16:51 amoxicillin Allergy Unknown Rash Verified 12/04/23 16:51 cephalexin [Keflex] Allergy Unknown Rash Verified 12/04/23 16:51 oxycodone [From PERCOCET] Allergy Unknown VOMITING Verified 12/04/23 16:51 penicillin G Allergy Unknown Rash Verified 12/04/23 16:51 Active Medications: Current Medications Acetaminophen (Acetaminophen 325 Mg Tablet) 650 mg PO Q6H PRN PRN Reason: Pain, Mild (Pain Scale 1-3), fever or headache Aspirin (Aspirin Enteric Coated 81 Mg Tablet.) 81 mg PO DAILY [facility] Last Admin: 12/05/23 09:18 Dose: 81 mg Atorvastatin Calcium (Atorvastatin Calcium 80 Mg Tablet) 80 mg PO BEDTIME [facility] Calcium Carbonate (Calcium Carbonate 750 Mg Tab.Chew) 750 mg PO Q4H PRN PRN Reason: Heartburn Clopidogrel Bisulfate (Clopidogrel Bisulfate 75 Mg Tablet) 75 mg PO DAILY [facility] Last Admin: 12/05/23 10:19 Dose: 75 mg Enoxaparin Sodium (Enoxaparin Sodium 40 Mg/0.4 Ml Syringe) 40 mg SUBCUT Q24H [facility] Last Admin: 12/05/23 00:29 Dose: 40 mg Fenofibrate (Fenofibrate 160 Mg Tablet) 160 mg PO DAILY [facility] Lactated Ringer's (Lr) 1,000 mls @ 100 mls/hr IVCONT .Q10H [facility] Last Admin: 12/05/23 08:18 Dose: 100 mls/hr Insulin Glargine (Insulin Glargine,Hum.Rec.Anlog 100 Unit/Ml 10 Ml Vial) 10 unit SUBCUT DAILY [facility] Insulin Human Lispro (Insulin Lispro 100 Unit/Ml 3 Ml Vial) 0 unit SUBCUT QIDACHS [facility]; Protocol Lisinopril (Lisinopril 5 Mg Tablet) 5 mg PO DAILY [facility]; Protocol Last Admin: 12/05/23 10:19 Dose: 5 mg Magnesium Hydroxide (Milk Of Magnesia 30 Ml Oral.Susp) 30 ml PO DAILY PRN PRN Reason: Constipation Melatonin (Melatonin 3 Mg Tablet) 6 mg PO BEDTIME PRN PRN Reason: Insomnia Metformin HCl (Metformin Hcl 500 Mg Tablet) 500 mg PO BIDWM [facility] Ondansetron HCl (Ondansetron Hcl 4 Mg/2 Ml Vial) 4 mg IVPUSH Q8H PRN PRN Reason: Nausea and Vomiting Oxybutynin Chloride (Oxybutynin Chloride Er 5 Mg Tab.Er.24) 5 mg PO DAILY [facility] Home Medications ?Medication ?Instructions ?Recorded ?Confirmed ?Last Taken ?Type lisinopril 5 mg tablet 5 mg PO DAILY 12/05/23 12/05/23 12/04/23 09:00 History oxybutynin chloride 5 mg tablet 5 mg PO BID 12/05/23 12/05/23 12/04/23 09:00 History Physical Exam 2 Vital Signs: Vital Signs: Last Vital Signs Temp 97.7 F 12/05/23 11:54 Pulse 94 12/05/23 11:54 Resp 19 12/05/23 11:54 BP 152/90 H 12/05/23 11:54 Pulse Ox 94 12/05/23 11:54 O2 Del Method Room Air 12/05/23 11:54 BMI result Body Mass Index 34.6 Neuro: Other: She is alert and oriented x3. His speech is slightly thick. She has no dysphagia. Tongue protrudes in the midline and tongue and palatal movements were normal. Visual fragoso are full to confrontation. There is no nystagmus. She has good engagement manager in bilateral proximal weakness right. Than left in the deltoid, biceps and triceps graded at 4+/5. Lower extremity strength 5 minus/5 on the right and 5 over 5 on the left. Plantar response are extensor bilatterally. Results Labs 12/05/23 06:36 12/05/23 06:36 Labs: Short CBC 12/04/23 12/05/23 Range/Units 16:57 06:36 WBC 9.0 8.8 (4.8-10.8) X10*3/uL Hgb 17.1 H 16.2 H (12.0-16.0) g/dl Hct 50.7 H 48.5 H (37.0-47.0) % Plt Count 176 D 178 (160-400) X10*3/uL BMP 12/04/23 12/04/23 12/05/23 16:57 22:03 06:36 Sodium 138 140 137 Potassium 4.5 3.5 D 4.0 Chloride 106 105 107 Carbon Dioxide 16 L 23 20 L BUN 18 H 14 12 Creatinine 1.07 0.93 0.91 Calcium 9.9 8.8 D 9.2 Liver Function 12/04/23 Range/Units 16:57 Total Bilirubin 0.8 (0.0-1.0) mg/dL Direct Bilirubin 0.2 (0.0-0.5) mg/dL AST 53 H (5-31) U/L ALT 85 H (0-31) U/L Alkaline Phosphatase 206 H (39-117) U/L Albumin 4.4 (3.5-5.0) g/dL Urine 12/04/23 Range/Units 21:13 Urine Color Yellow Urine Appearance Clear Urine pH 6.0 (5.0-9.0) Ur Specific [place] >= 1.030 H (1.005-1.025) Urine Protein 30 (1+) H (Neg-Trace) mg/dL Urine Glucose (UA) >=1000 H (Negative) mg/dL Assessment and Plan (1) Occlusion of right vertebral artery: Status: Acute She appears to have progressive occlusion of the right vertebral artery in spite of high dose. He atorvastatin and do a platelet therapy and a previous stroke in June of 2023 in the vertebral distribution. She now has an extension of the infarct into the angela.All other arteries were wide open with no significant vascular disease Recommendation: Switch her to L across 5 mg twice a day and continue aspirin 81 mg a day. Can discontinue Plavix. Continue it atorvastatin 80 mg a day. PT and OT for gait and balance. (2) Left pontine stroke: Status: Acute Procedures Date of Service Date of Service: 12/05/23
[2023-12-05] MEDS: Fenofibrate 160 MG TABLET PO (15:14)
[2023-12-05 18:16] LABS: Glucose, Whole Blood 219 mg/dL (60-115)
[2023-12-05] MEDS: Insulin Lispro 100 UNIT/ML 3 ML VIAL SUBCUT (18:34)
--- NOTE | 2023-12-05 19:00 | PC.NURSE ---
Assumed care of pt. pt lyin alonso bed, tremulous, appears anxious. pt endorses taking Ativan at home for anxiety. plan to speak with provider over status.
--- NOTE | 2023-12-05 19:16 | PC.NURSE ---
Assumed care of pt. Pt lying on stretcher, no acute distress at this time. bedding rearranged for pt comfort, continuing plan of care for admission. Pending transport availability.
[2023-12-05 19:55] LABS: Glucose, Whole Blood 211 mg/dL (60-115)
[2023-12-05] MEDS: Acetaminophen 325 MG TABLET 650 MG PO (20:09)
[2023-12-05] MEDS: Atorvastatin Calcium 80 MG TABLET PO (20:32)
[2023-12-05] MEDS: Apixaban 5 MG TABLET PO (20:32)
[2023-12-06 00:32] LABS: Glucose, Whole Blood 176 mg/dL (60-115)
[2023-12-06] MEDS: Insulin Lispro 100 UNIT/ML 3 ML VIAL SUBCUT ×3 (00:33→11:46)
[2023-12-06 03:45] VITALS: BP 127/76; PULSE 71; RESP 18; TEMP 36.6; O2SAT 96
[2023-12-06 06:57] LABS: Hematocrit 43.1 % (37.0-47.0); Hemoglobin 14.5 g/dl (12.0-16.0); Mean Corpuscular HGB Conc 33.6 g/dl (31.0-35.0); Mean Corpuscular Hemoglobin 27.2 pg (27.0-33.0); Mean Corpuscular Volume 80.7 fL (80.0-98.0); Mean Platelet Volume 10.6 fL (9.4-12.3); Platelet Count 199 X10*3/uL (160-400); Red Blood Count 5.34 X10*6/uL (4.20-5.50); Red Cell Distribution Width 12.7 % (11.0-16.0); White Blood Count 6.6 X10*3/uL (4.8-10.8)
[2023-12-06 07:13] LABS: Anion Gap 11 (12-20); Blood Urea Nitrogen 11 mg/dL (9-16); Calcium 8.9 mg/dL (8.4-10.2); Carbon Dioxide 23 mmol/L (22-29); Chloride 108 mmol/L (96-108); Creatinine Clr Calc Pharmacy 71.7; Estimated Glomerular Filt Rate > 60; Glucose Random 212 mg/dL (60-115); Potassium 3.9 mmol/L (3.3-5.1); Sodium 138 mmol/L (135-145)
[2023-12-06 07:23] LABS: Glucose, Whole Blood 181 mg/dL (60-115)
[2023-12-06 07:34] VITALS: BP 121/75; PULSE 72; TEMP 36.6; O2SAT 97
[2023-12-06 08:00] VITALS: RESP 19
[2023-12-06] MEDS: LORazepam 0.5 MG TABLET 0.25 MG PO (08:04)
[2023-12-06] MEDS: Aspirin Enteric Coated 81 MG TABLET.DR PO (08:04)
[2023-12-06 08:05] VITALS: BP 121/75
[2023-12-06] MEDS: lisinopriL 5 MG TABLET PO (08:05)
[2023-12-06] MEDS: oxyBUTYnin chloride ER 5 MG TAB.ER.24 PO (08:05)
[2023-12-06] MEDS: Apixaban 5 MG TABLET PO (08:05)
[2023-12-06] MEDS: Fenofibrate 160 MG TABLET PO (08:05)
[2023-12-06] MEDS: Insulin Glargine,Hum.rec.anlog 100 UNIT/ML 10 ML VIAL 10 UNIT SUBCUT (08:09)
[2023-12-06 10:59] LABS: Glucose, Whole Blood 283 mg/dL (60-115)
[2023-12-06 11:21] VITALS: BP 138/78; PULSE 93; RESP 19; O2SAT 95
[2023-12-06 11:23] VITALS: RESP 19; O2SAT 95
--- NOTE | 2023-12-06 11:56 | P.DS_ITS ---
DS: Providers Provider Date of Service: 12/06/23 Date of admission: 12/04/23 22:15 Primary care physician: Leah Queen CNP Consults: 12/04/23 22:14 Consult to Neurology Routine Consulting Provider: [facility] Reason for consultation: CVA 12/05/23 07:37 Consult to Vascular Surgery Routine Consulting Provider: [facility] Services Reason for consultation: recurrent strokes with Vertebral artery origin stenosis. DS: Diagnosis Discharge Diagnosis (1) Occlusion of right vertebral artery: Status: Acute (2) Left pontine stroke: Status: Acute DS: Summary Hospital Course Hospital Course: Admission note HPI This is a 63-year-old female with pertinent history of bilateral medullary stroke, mood disorder who presents to the emergency department for evaluation of right-sided weakness. Patient states she has been having right upper and lower extremity weakness that started 3 days prior to presentation. Her sister prompted her to visit to the hospital as the weakness was worse on the day of presentation. Patient was diagnosed with bilateral medullary stroke in June of 2023. States she has been compliant with her medications including aspirin and Plavix. No vision changes. No fever, chills, chest discomfort, palpitations, shortness of breath, abdominal pain, changes in urinary or bowel habits. In the emergency department, CT of the head with acute left pontine stroke. Hospital course The patient presented with Right sided weakness secondary to Acute left pontine CVA as confirmed by head CTA and brain MRI. Echo was done showing normal EF. No abnormal rhythm on Telemetry. 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 discussed with Neurology who evaluated the patient and recommended to discontinue Plavix and start Eliquis. lipid panel showing high TG and low HDL but normal LDL. Will continue high-intensity statin. PT/OT evaluated the patient and recommended acute rehab but she prefers going home and to do outpatient PT. 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 She was also noticed to have Newly diagnosed Type II DM with hyperglycemia with HbA1c of 13. Started on Lantus and SSI along with Metformin. To be followed by [facility] for diabetes education and monitoring. to follow with PCP as outpatient. advised to increase exercise and weight loss. Discharge plan Discontinue Plavix, Start Eliquis 5 mg twice daily Continue Aspirin and Atorvastatin Start Metformin for diabetes control Start short and long acting Insulin for diabetes Increase physical activity and target weight loss Follow with physical therapy as outpatient for best results Follow with Neurology as outpatient Monitor sugar levels for next week and follow with your PCP for further adjustments Time Attestation Discharge Coordination Time (in mins): 46 Quality: Safe Use of Opioids Does Pt have an Active Cancer Diagnosis on the Problem List?: No Quality: Stroke Does the patient have a stroke diagnosis?: Yes Reason for No Anti-thrombotic at DC: N/A - Med Ordered Reason for No Anticoagulant at DC: N/A - Med Ordered Reason Not Initiating IV-Tpa: Not indicated Reason for No Anti-thrombotic by Day Two: N/A - Med Ordered Reason for No Statin at DC: N/A - Med Ordered Physical Exam Vital Signs: Vital Signs: Last Vital Signs Temp 97.8 F 12/06/23 07:34 Pulse 93 12/06/23 11:21 Resp 19 12/06/23 11:23 BP 138/78 12/06/23 11:21 Pulse Ox 95 12/06/23 11:23 O2 Del Method Room Air 12/06/23 11:23 BMI result Body Mass Index 33.3 Const: Other: Constitutional : Awake, interactive, not in distress Neck : Normal inspection, Supple Cardiovascular : RRR, no JVP, no lower extremity edema Respiratory : good bilateral air entry, no crackles, wheezes or rhonchi Gastrointestinal: soft, lax, Normal bowel sounds, Non tender Skin : Warm, Dry Neurological : Alert & oriented x3, fluent speech, CN 2-12 within normal, mild weakness upper extremities; improved since admission, Lower ex weakness 4/5 bilaterally DS: Data Data Completed and Pending Completed studies during hospitalization [Text1]: Procedures Drainage of Spinal Canal, Percutaneous Approach, Diagnostic (06/29/23) Labs on day of discharge: Laboratory Results - last 24 hr 12/05/23 12/05/23 12/06/23 18:09 19:51 00:28 WBC RBC Hgb Hct MCV MCH MCHC RDW Plt Count MPV Absolute Nucleated RBC Nucleated RBC % (auto) Sodium Potassium Chloride Carbon Dioxide Anion Gap BUN Creatinine Estim Creat Clear Calc Estimated GFR POC Glucose 219 H 211 H 176 H Random Glucose Calcium 12/06/23 12/06/23 12/06/23 06:31 07:19 10:49 WBC 6.6 RBC 5.34 Hgb 14.5 Hct 43.1 MCV 80.7 MCH 27.2 MCHC 33.6 RDW 12.7 Plt Count 199 MPV 10.6 Absolute Nucleated RBC 0.000 Nucleated RBC % (auto) 0.0 Sodium 138 Potassium 3.9 Chloride 108 Carbon Dioxide 23 Anion Gap 11 L BUN 11 Creatinine 0.82 Estim Creat Clear Calc 71.7 Estimated GFR > 60 POC Glucose 181 H 283 H Random Glucose 212 H Calcium 8.9 Imaging MRI - head: Radiologist's impression: ITS Impressions Head/Neck CTA 12/04/23 20:51 IMPRESSION: CT HEAD: Hypodensity along the left paramedian angela suspicious for acute infarction. Correlation with MRI is recommended. Additional hypodensity along the left ventral medulla may be sequela of known prior medullary infarction but could be better evaluated with MRI. CTA NECK: Severe stenosis/short segment occlusion of the right vertebral artery origin. The artery reconstitutes superior to this and is patent through the remainder of its cervical course except for mild stenosis in the distal V3 segment that appears comparable to prior. CTA HEAD: Progressive occlusion of the right vertebral artery mid through distal V4 segment. This critical result was discussed with Dr. Connolly at 21:56 on 12/04/23 and it was ascertained that the content and urgency of the report was understood at the time of direct communication. Brain MRI 12/05/23 11:02 IMPRESSION: 1. Acute infarct of the left central/ventral angela. No evidence of hemorrhagic transformation. 2. Mild underlying microangiopathy and generalized cerebral volume loss. Discharge Plan Discharge Anticipated Discharge Date/Time: 12/06/23 11:43 Patient Disposition: Home Health Service Discharge Diagnosis: Acute stroke Diabetes type 2 Referrals: Leah Beauchamp CNP [Primary Care Provider] - 1 Week Discharge Medications: New Eliquis 5 mg Tablet 5 mg PO BID Qty: 180 0RF metformin 500 mg Tablet 500 mg PO BIDWM Qty: 180 0RF insulin glargine 100 unit/mL (3 mL) insulin pen 20 unit subcut DAILY Qty: 15 2RF insulin lispro [Humalog KwikPen Insulin] 100 unit/mL insulin pen See Protocol subcut USEASDIRECTD Qty: 15 2RF Protocol: Insulin Correction Scale Less than or equal to 110 ---- Give (units): 0 111 to 150 Give (units): 0 151 to 200 Give (units): 2 201 to 250 Give (units): 4 251 to 300 Give (units): 6 301 to 350 Give (units): 8 Greater than 350 Give (units): 10 Call MD if Blood Glucose > : 350 Rx Instructions: Sliding scale: Less than 150, 0 units 151-200 : 2 units 201-250 : 4 units 251-300 : 6 units 301-350 : 8 units > 351 : take 12 unis and contact PCP alcohol swabs Pads, Medicated 1 pad topical DIRECTED Qty: 200 2RF (DME) FreeStyle Lite Strips Strip See Rx Instructions .ROUTE .MEDSUPPLY Qty: 100 2RF Rx Instructions: QID (DME) lancets Misc See Rx Instructions .ROUTE .MEDSUPPLY Qty: 200 2RF Rx Instructions: 4 times daily (DME) blood-glucose meter [FreeStyle Lite Meter] Kit See Rx Instructions .ROUTE .MEDSUPPLY Qty: 1 0RF Rx Instructions: As directed (DME) pen needle, diabetic [Pen Needle] 31 gauge x 5/16 needle See Rx Instructions .ROUTE .MEDSUPPLY Qty: 200 2RF Rx Instructions: As directed Continued lisinopril 5 mg tablet 5 mg PO DAILY oxybutynin chloride 5 mg tablet 5 mg PO BID atorvastatin 80 mg Tablet 80 mg PO BEDTIME Qty: 90 0RF aspirin 81 mg Tablet,Delayed Release (Dr/Ec) 81 mg PO DAILY Qty: 90 0RF Discontinued clopidogrel 75 mg Tablet 75 mg PO DAILY Qty: 90 0RF Discharge Orders: Discharge Order (Routine); Ordered 12/06/23 Ordered By: Akin Montaño Diet: Diabetic diet Activity on Discharge: As tolerated Stand Alone Forms: Patient Portal Discharge page Print Language: Latvian Care Plan Goals: Discontinue Plavix, Start Eliquis 5 mg twice daily Continue Aspirin and Atorvastatin Start Metformin for diabetes control Start short and long acting Insulin for diabetes Increase physical activity and target weight loss Follow with physical therapy as outpatient for best results Follow with Neurology as outpatient Monitor sugar levels for next week and follow with your PCP for further adjustments Health Concerns: Read below Plan of Treatment: Read below Assessment: Read below Patient Instructions: Type 2 Diabetes in Adults: New Diagnosis (GEN)
--- NOTE | 2023-12-06 12:09 | W.MHC.F2F ---
Service Date Service Date: 12/06/23 Encounter Date of encounter: 12/06/23 Reasons for Services Signs and symptoms assessed: New onset diabetes Acute stroke Reason for penitentiary: diabetic teaching and monitoring of unstable blood sugar Reason for physical therapy: home safety and mobility Homebound: Leaving the home is medically contraindicated at this time without the asist of a device and/or another person due th the listed conditions above and below. Reason homebound: unsteady gait / fall risk Certification: Based on the above findings, I certify that this patient is confined to the home and needs intermittent penitentiary care, physical therapy and/or speech therapy, or continues to need occupational therapy. The patient is under my care, and I have initiated the establishment of the plan of care. The patient will be followed by a physician who will periodically review the plan of care. Time Spent With Patient Time: Total time managing care of this patient today ____ minutes.
--- NOTE | 2023-12-06 12:45 | MHC.SL.SWA ---
Risk of Aspiration Due to: Acute CVA Dysphasia Diet Status: No change Liquid Consistency and Strategies for Safe Swallow: Liquid Intake Recommendation: Thin Solid Food Consistency: Dietary Recommendations: Regular Oral Medication Intake: Whole with Liquid/puree Please contact the pharmacy regarding appropriate crushable or liquid drug formulations that are available whenever modified delivery is recommended. Compensatory Strategies and Precautions to be Taken for Safe Swallow: Sitting Upright (90 deg) Small Bites and Sips Alternate Liquids/Solids Supervision While Eating and Drinking for Safe Swallow: None Needed Swallowing Recommended Treatments: Compens. Strategy Educat. Recommendation for Speech: Inpatient Speech Therapy Comment:Recommend continue with REGULAR solids and THIN liquids. Pills whole w/ liquid/puree depending on pt preference. Pt set to d/c hospital today for home. Customer Support Consultant Clinican/Clinical Fellow: No Supervisory Statement: I have reviewed and agree with the student/clinical fellow's documentation: N/A Speech Language Pathologist: Maria Elena jordan M.A., CCC-HOOP COILER
--- NOTE | 2023-12-06 13:08 | MHC.CM.PN ---
Patient has been medically cleared for dc to home today, with services. CM has referred Patient to the 6 area VNAs that accept Patient's insurance([facility]) and thus far no one has accepted Patient(Patient has already left the hospital). YOSVANY has made MD aware and will continue to attempt to secure a VNA.
--- NOTE | 2023-12-06 13:34 | MHC.CM.PN ---
YOSVANY spoke with Suzie from [facility] @ [phone], who is willing to review this referral. CM will follow.
--- NOTE | 2023-12-06 14:18 | MHC.CM.PN ---
[facility], referral has been faxed to her at [phone].
--- NOTE | 2023-12-06 14:34 | MHC.CM.PN ---
CM has hand faxed referral to [facility] @ [phone].
--- NOTE | 2023-12-06 14:40 | MHC.CM.PN ---
[facility] is unable to accept Patient;CM awaits response from [facility].
--- NOTE | 2023-12-06 14:45 | MHC.CM.PN ---
CM called [facility] @ [phone] to check up on referral status; CM awaits a return call.
--- NOTE | 2023-12-06 15:08 | MHC.CM.PN ---
[facility] has accepted Patient. has been made aware.
== END 2023-12-06 12:34 | disposition home health service (06) | DRG 45 ==
LOC: HO.ED 22:17 → HO.EDOVER 22:30 → HO.IMC 12-05 16:31
PROVIDERS: Emergency Medicine; Admitting Provider Student in an Organized Health Care Education/Training Program; Emergency Provider Emergency Medicine; PCP Nurse Practitioner Family; Visit Provider Student in an Organized Health Care Education/Training Program
DX: I63.29 Cerebral infarction due to unspecified occlusion or stenosis of other precerebral arteries (principal); G81.91 Hemiplegia, unspecified affecting right dominant side; E11.65 Type 2 diabetes mellitus with hyperglycemia; R47.01 Aphasia; R47.1 Dysarthria and anarthria; I65.01 Occlusion and stenosis of right vertebral artery; R29.708 NIHSS score 8; Z79.4 Long term (current) use of insulin; Z79.02 Long term (current) use of antithrombotics/antiplatelets; Z79.82 Long term (current) use of aspirin; Z79.899 Other long term (current) drug therapy
CPT/HCPCS: 36415; 70496; 70498; 70551; 80048; 80061; 80076; 80307; 81001; 82947; 83036; 83735; 84484; 85025; 85027; 85610; 92526; 92610; 93005; 93306; 97110; 97162; 97166; 97530; 99285; J1650; J2060; J7120; Q9957; Q9967

== ENCOUNTER → 2023-12-04 15:46 | Outpatient (BNV) | payer OTHER, SELFPAY | PROVIDERS: Admitting Provider Student in an Organized Health Care Education/Training Program; Emergency Provider Emergency Medicine; PCP Nurse Practitioner Family; Visit Provider Internal Medicine | DX: R94.31 Abnormal electrocardiogram [ECG] [EKG] (principal) | CPT/HCPCS: 93010 ==

== ENCOUNTER 2023-12-04 22:15 | Outpatient (BNV) | payer OTHER, SELFPAY | END 2023-12-05 07:00 | PROVIDERS: Admitting Provider Student in an Organized Health Care Education/Training Program; Emergency Provider Emergency Medicine; PCP Nurse Practitioner Family; Visit Provider Internal Medicine | DX: I36.1 Nonrheumatic tricuspid (valve) insufficiency (principal); I42.2 Other hypertrophic cardiomyopathy | CPT/HCPCS: 93306 ==

== ENCOUNTER → 2023-12-04 22:15 | Outpatient (BNV) | payer OTHER, SELFPAY | PROVIDERS: Admitting Provider Student in an Organized Health Care Education/Training Program; Emergency Provider Emergency Medicine; PCP Nurse Practitioner Family; Visit Provider Student in an Organized Health Care Education/Training Program | DX: I65.01 Occlusion and stenosis of right vertebral artery (principal); I63.9 Cerebral infarction, unspecified | CPT/HCPCS: 99222; 99232; 99239; G0180 ==

== ENCOUNTER → 2023-12-04 22:15 | Outpatient (BNV) | payer OTHER, SELFPAY | PROVIDERS: Admitting Provider Student in an Organized Health Care Education/Training Program; Emergency Provider Emergency Medicine; PCP Nurse Practitioner Family; Visit Provider Psychiatry & Neurology Neurology | DX: I63.211 Cerebral infarction due to unspecified occlusion or stenosis of right vertebral artery (principal) | CPT/HCPCS: 99222 ==